=== PATIENT | male | born 1970 | race Two or more races ===

== ENCOUNTER 2022-12-18 01:08 | Emergency (ER) | payer OTHER, SELFPAY ==
[2022-12-18 01:20] VITALS: BP 128/78; PULSE 80; RESP 16; TEMP 37.5; O2SAT 95; BMI 38.9
--- NOTE | 2022-12-18 01:52 | ED_ITS ---
HPI - General Adult General Chief complaint: General Medical Stated complaint: Difficulty swallowing Time Seen by Provider: 12/18/22 01:52 Source: patient Mode of arrival: ambulatory Limitations: no limitations History of Present Illness HPI narrative: Patient with multiple complaints back pain for more than 2 months few weeks of dysuria and frequency now complaining of sore throat for last few days also feels very anxious no fever no chills Related Data Previous Rx's Medication Instructions Recorded ibuprofen 600 mg tablet 600 mg PO Q6H PRN fever or pain 12/18/22 #30 tabs lorazepam 1 mg tablet (Ativan) 1 mg PO BEDTIME PRN anxiety #7 tabs 12/18/22 Allergies Allergy/AdvReac Type Severity Reaction Status Date / Time No Known Allergies Allergy Verified 12/18/22 01:53 Review of Systems Review of Systems: Yes all other systems are reviewed and are negative [facility] Social History Social History Alcohol intake: never Smoked in Last 30 Days: No Use of substances other than those prescribed or required for medical reasons: No Advance Directives: No Advance Directives Information Provided: Yes Physical Exam ED Vital Signs: Vital Signs - 24 hr 12/18/22 01:20 12/18/22 04:05 Temperature 99.5 F 98.3 F Pulse Rate 80 73 Respiratory Rate 16 17 Blood Pressure 128/78 107/64 Pulse Oximetry 95 95 Oxygen Delivery Method Room Air Room Air BMI result Body Mass Index 38.9 Appearance: Alert. Oriented X3. No acute distress. Anxious Eyes: PERRLA, No Nystagmus ENT: Pharynx normal. Oral Mucosa moist Neck: Normal inspection. Neck supple. CVS: Normal heart rate and rhythm. Pulses normal. Respiratory: No respiratory distress. Equal air entry bilateral, no wheezing/rales/rhonchi Abdomen: Soft and nontender. Bowel sounds are present, no mass palpable, no CVA tenderness Skin: Skin warm and dry. Normal skin color. Normal skin turgor. Extremities: No lower extremity edema. No calf tenderness Neuro: Oriented X 3. No motor deficit. Medications Administered Discontinued Medications Generic Name Dose Route Start Last Admin Trade Name Freq PRN Reason Stop Dose Admin Lorazepam 1 mg 12/18/22 02:00 12/18/22 02:12 Lorazepam 1 Mg Tablet PO 12/18/22 02:01 1 mg ONCE ONE Administration Medical Decision Making Medical Decision Making [facility] Narrative: Patient with multiple complaints main complaints anxiety urine negative COVID/flu/RSV negative will discharge patient home on Ativan and ibuprofen for chronic pain Lab Data [facility] Lab Attestation statement: I reviewed the patient's lab results. Labs: Lab Results 12/18/22 12/18/22 Range/Units 01:26 02:08 Urine Color Yellow Urine Appearance Clear Urine pH 5.5 (5.0-9.0) Ur Specific [place] 1.020 (1.005-1.025) Urine Protein Negative (Neg-Trace) mg/dL Urine Glucose (UA) Negative (Negative) mg/dL Urine Ketones Negative (Negative) mg/dL Urine Blood Negative (Negative) Urine Nitrite Negative (Negative) Ur Leukocyte Esterase Negative (Negative) Influenza Type A (PCR) NEGATIVE (Negative) Influenza Type B (PCR) NEGATIVE (Negative) RSV RNA Qual (PCR) NEGATIVE (Negative) SARS-CoV-2 RNA (RT-PCR) NEGATIVE (Negative) Discharge Plan Discharge Clinical Impression: Anxiety Patient Disposition: Home, Self-Care Instructions: Generalized Anxiety Disorder (ED) Additional Instructions: Rest at home Tylenol/Motrin for pain Ativan for anxiety Prescriptions: New ibuprofen 600 mg tablet 600 mg PO Q6H PRN (Reason: fever or pain) Qty: 30 0RF lorazepam [Ativan] 1 mg tablet 1 mg PO BEDTIME PRN (Reason: anxiety) Qty: 7 0RF
[2022-12-18] MEDS: LORazepam 1 MG TABLET PO (02:12)
[2022-12-18 02:14] LABS: Appearance Urine Clear; Color Urine Yellow; Glucose Urine UA Negative (Negative); Leukocyte Esterase Urine Negative (Negative); Nitrite Urine Negative (Negative); PH 5.5 (5.0-9.0); Urine Blood Negative (Negative); Urine Ketones Negative (Negative); Urine Protein Negative (Neg-Trace)
--- NOTE | 2022-12-18 02:22 | PC.NURSE ---
Pt a&oX4, states L sided neck pain feeling like if there was phlegm stuck, but as I was checking in, its resolved now . Reports 810 R sided flank pain with burning, frequency and pain. Urine sample collected and sent to lab.
[2022-12-18 02:24] LABS: Influenza A PCR NEGATIVE (Negative); Influenza B PCR NEGATIVE (Negative); Resp Syncy Virus RNA Qual PCR NEGATIVE (Negative); SARS COV2 PCR INHOUSE NEGATIVE (Negative)
[2022-12-18 04:05] VITALS: BP 107/64; PULSE 73; RESP 17; TEMP 36.8; O2SAT 95
== END 2022-12-18 04:42 | disposition home or self-care (01) ==
PROVIDERS: Emergency Provider Internal Medicine; PCP Internal Medicine
DX: R13.10 Dysphagia, unspecified (principal); M54.50 Low back pain, unspecified; F41.1 Generalized anxiety disorder; F43.0 Acute stress reaction; Z20.822 Contact with and (suspected) exposure to COVID-19; Z20.828 Contact with and (suspected) exposure to other viral communicable diseases; Z79.899 Other long term (current) drug therapy
CPT/HCPCS: 0241U; 81003; 99283; 99284

== ENCOUNTER 2023-01-23 18:48 | Emergency (ER) | payer OTHER, SELFPAY ==
[2023-01-23 19:04] VITALS: BP 125/83; PULSE 85; RESP 18; TEMP 36.7; O2SAT 96; BMI 35.4
--- NOTE | 2023-01-23 19:06 | ED_ITS ---
HPI - URI/Sore Throat General Chief Complaint: Upper Respiratory Symptoms <CHIP Angela - Last Filed: 01/23/23 19:10> Stated Complaint: dry throat/ feels closed <CHIP Angela - Last Filed: 01/23/23 19:10> Time Seen by Provider: 01/23/23 21:38 <CHIP Angela - Last Filed: 01/23/23 19:10> Source: patient <Osiel Marroquin MD - Last Filed: 01/23/23 22:22> Mode of arrival: ambulatory <Osiel Marroquin MD - Last Filed: 01/23/23 22:22> Limitations: no limitations <Osiel Marroquin MD - Last Filed: 01/23/23 22:22> History of Present Illness HPI Narrative: Patient 52 years or [place]-speaking male complaining of sore throat for last 3 days got worse yesterday feel itchy and tighten the back of the throat no sick contacts or travel no difficulty in swallowing on breathing. No change in voice no rhinorrhea no sinus tenderness no cough or sputum production no other family member sick <Osiel Marroquin MD - Last Filed: 01/23/23 22:22> Related Data Home Medications: Previous Rx's Medication Instructions Recorded ibuprofen 600 mg tablet 600 mg PO Q6H PRN fever or pain 12/18/22 #30 tabs lorazepam 1 mg tablet (Ativan) 1 mg PO BEDTIME PRN anxiety #7 tabs 12/18/22 cefuroxime axetil 500 mg tablet 500 mg PO BID #14 tabs 01/23/23 <CHIP Angela - Last Filed: 01/23/23 19:10> Allergies/Adverse Reactions: Allergies Allergy/AdvReac Type Severity Reaction Status Date / Time No Known Allergies Allergy Verified 12/18/22 01:53 <CHIP Angela - Last Filed: 01/23/23 19:10> Review of Systems Review of Systems: Yes all other systems are reviewed and are negative <Osiel Marroquin MD - Last Filed: 01/23/23 22:22> PMFSH Social History Social History: Social History Alcohol intake: never Advance Directives: No Advance Directives Information Provided: No <CHIP Angela - Last Filed: 01/23/23 19:10> Physical Exam Vital Signs: Vital Signs: Last Vital Signs Temp 98.0 F 01/23/23 19:04 Pulse 85 01/23/23 19:04 Resp 18 01/23/23 19:04 BP 125/83 01/23/23 19:04 Pulse Ox 96 01/23/23 19:04 O2 Del Method Room Air 01/23/23 19:04 BMI result Body Mass Index 35.4 <CHIP Angela - Last Filed: 01/23/23 19:10> Vital Signs: Last Vital Signs Temp 98.0 F 01/23/23 19:04 Pulse 85 01/23/23 19:04 Resp 18 01/23/23 19:04 BP 125/83 01/23/23 19:04 Pulse Ox 96 01/23/23 19:04 O2 Del Method Room Air 01/23/23 19:04 BMI result Body Mass Index 35.4 <Osiel Marroquin MD - Last Filed: 01/23/23 22:22> Appearance: Alert. Oriented X3. No acute distress. ENT: Pharynx normal. Oral Mucosa moist Neck: Normal inspection. Neck supple. Bilateral upper cervical lymphadenopathy CVS: Normal heart rate and rhythm. Pulses normal. Respiratory: No respiratory distress. Equal air entry bilateral, no wheezing/rales/rhonchi Skin: Skin warm and dry. Normal skin color. Normal skin turgor. Extremities: No lower extremity edema. Neuro: Oriented X 3. <Osiel Marroquin MD - Last Filed: 01/23/23 22:22> Course Course Course Narrative: RME-19:10pm - 52-year-old male who is [place]-speaking presenting to the ER with complaints of throat discomfort feels very dry feels like it is closing since yesterday worse today. Also reports it feels itchy. Denies recent travel or sick contacts, trouble swallowing or breathing, rashes, change in voice, drooling, nasal congestion/rhinorrhea, cough or sputum production or any other symptoms complaints or concerns at this time Plan: COVID/RSV/flu and rapid strep ordered at this time patient to be seen in [facility]. <CHIP Angela - Last Filed: 01/23/23 19:10> Medications Administered Discontinued Medications Generic Name Dose Route Start Last Admin Trade Name Freq PRN Reason Stop Dose Admin Cefuroxime Axetil 500 mg 01/23/23 21:50 01/23/23 22:16 Cefuroxime Axetil 500 Mg Tablet PO 01/23/23 21:51 500 mg ONCE ONE Administration <CHIP Angela - Last Filed: 01/23/23 19:10> Medications Administered Discontinued Medications Generic Name Dose Route Start Last Admin Trade Name Freq PRN Reason Stop Dose Admin Cefuroxime Axetil 500 mg 01/23/23 21:50 01/23/23 22:16 Cefuroxime Axetil 500 Mg Tablet PO 01/23/23 21:51 500 mg ONCE ONE Administration <Osiel Marroquin MD - Last Filed: 01/23/23 22:22> Medical Decision Making Medical Decision Making MDM Narrative: Patient with acute pharyngitis strep is negative discharge patient home on Ceftin <Osiel Marroquin MD - Last Filed: 01/23/23 22:22> Lab Data [facility] Lab Attestation statement: I reviewed the patient's lab results. <Osiel Marroquin MD - Last Filed: 01/23/23 22:22> Labs: Lab Results 01/23/23 01/23/23 Range/Units 20:44 20:44 Influenza Type A (PCR) NEGATIVE (Negative) Influenza Type B (PCR) NEGATIVE (Negative) RSV RNA Qual (PCR) NEGATIVE (Negative) SARS-CoV-2 RNA (RT-PCR) NEGATIVE (Negative) S. pyogenes GrpA BJ Negative (Negative) <CHIP Angela - Last Filed: 01/23/23 19:10> Lab Results 01/23/23 01/23/23 Range/Units 20:44 20:44 Influenza Type A (PCR) NEGATIVE (Negative) Influenza Type B (PCR) NEGATIVE (Negative) RSV RNA Qual (PCR) NEGATIVE (Negative) SARS-CoV-2 RNA (RT-PCR) NEGATIVE (Negative) S. pyogenes GrpA BJ Negative (Negative) <Osiel Marroquin MD - Last Filed: 01/23/23 22:22> Discharge Plan Discharge Clinical Impression: Pharyngitis <CHIP Angela - Last Filed: 01/23/23 19:10> Patient Disposition: Home, Self-Care <CHIP Angela - Last Filed: 01/23/23 19:10> Instructions: Pharyngitis (ED) <CHIP Angela - Last Filed: 01/23/23 19:10> Additional Instructions: Drink plenty of fluids Take antibiotic as prescribed Follow the PCP if any concerns Your strep test is negative <CHIP Angela - Last Filed: 01/23/23 19:10> Prescriptions: New cefuroxime axetil 500 mg tablet 500 mg PO BID Qty: 14 0RF No Action ibuprofen 600 mg tablet 600 mg PO Q6H PRN (Reason: fever or pain) Qty: 30 0RF lorazepam [Ativan] 1 mg tablet 1 mg PO BEDTIME PRN (Reason: anxiety) Qty: 7 0RF <CHIP Angela - Last Filed: 01/23/23 19:10> Interventions: ED Discharge Assessment Last Done: 01/23/23 22:19 <CHIP Angela - Last Filed: 01/23/23 19:10> Discharge Date/Time: 01/23/23 22:19 <CHIP Angela - Last Filed: 01/23/23 19:10> Print Language: Argentine <CHIP Angela - Last Filed: 01/23/23 19:10>
[2023-01-23 20:58] LABS: IDNOW Serial# 08D9AD1C; Strep A Nucleic Acid Negative (Negative)
[2023-01-23 21:32] LABS: Influenza A PCR NEGATIVE (Negative); Influenza B PCR NEGATIVE (Negative); Resp Syncy Virus RNA Qual PCR NEGATIVE (Negative); SARS COV2 PCR INHOUSE NEGATIVE (Negative)
== END 2023-01-23 22:19 | disposition home or self-care (01) ==
PROVIDERS: Physician Assistant Medical; Emergency Provider Internal Medicine
DX: J02.9 Acute pharyngitis, unspecified (principal); Z20.822 Contact with and (suspected) exposure to COVID-19; Z20.828 Contact with and (suspected) exposure to other viral communicable diseases; Z79.899 Other long term (current) drug therapy
CPT/HCPCS: 0241U; 87651; 99282; 99283

== ENCOUNTER 2023-01-24 01:30 | Emergency (ER) | payer OTHER, SELFPAY ==
[2023-01-24 02:44] VITALS: BP 103/66; PULSE 79; RESP 20; TEMP 36.6; O2SAT 96; BMI 35.4
--- NOTE | 2023-01-24 03:40 | ED.GENADULT ---
HPI - General Adult General Chief complaint: General Medical Stated complaint: Sore throat Time Seen by Provider: 01/24/23 03:21 Source: patient Mode of arrival: ambulatory Limitations: no limitations History of Present Illness HPI narrative: Patient with history of recurrent nasal congestion was seen here yesterday for sore throat comes back as still feeling same this going on for several weeks getting worse in last 3 days patient does have postnasal drip no fever no chills no cough or shortness of breath Related Data Previous Rx's Medication Instructions Recorded ibuprofen 600 mg tablet 600 mg PO Q6H PRN fever or pain 12/18/22 #30 tabs lorazepam 1 mg tablet (Ativan) 1 mg PO BEDTIME PRN anxiety #7 tabs 12/18/22 cefuroxime axetil 500 mg tablet 500 mg PO BID #14 tabs 01/23/23 codeine 10 mg-guaifenesin 100 mg/5 10 ml PO Q6H PRN cough #237 mL 01/24/23 mL oral liquid prednisone 20 mg tablet 40 mg PO DAILY #10 tabs 01/24/23 Allergies Allergy/AdvReac Type Severity Reaction Status Date / Time No Known Allergies Allergy Verified 12/18/22 01:53 Review of Systems Review of Systems: Yes all other systems are reviewed and are negative [facility] Social History Social History Alcohol intake: never Advance Directives: No Advance Directives Information Provided: No Physical Exam ED Vital Signs: Vital Signs - 24 hr 01/24/23 02:44 Temperature 97.8 F Pulse Rate 79 Respiratory Rate 20 Blood Pressure 103/66 Pulse Oximetry 96 Oxygen Delivery Method Room Air BMI result Body Mass Index 35.4 Appearance: Alert. Oriented X3. No acute distress. ENT: Pharynx slightly erythematous Oral Mucosa moist postnasal drip+ inflamed turbinates with clear discharge Neck: Normal inspection. Neck supple. CVS: Normal heart rate and rhythm. Pulses normal. Respiratory: No respiratory distress. Equal air entry bilateral, no wheezing/rales/rhonchi Skin: Skin warm and dry. Normal skin color. Normal skin turgor. Extremities: No lower extremity edema. Neuro: Oriented X 3. Medications Administered Discontinued Medications Generic Name Dose Route Start Last Admin Trade Name Freq PRN Reason Stop Dose Admin Dexamethasone 10 mg 01/24/23 03:50 01/24/23 04:49 Dexamethasone 2 Mg Tablet PO 01/24/23 03:51 10 mg ONCE ONE Administration Guaifenesin/Codeine Phosphate 10 ml 01/24/23 03:50 01/24/23 04:49 Guaifen/Codeine Sf 200/20/10ml 10 Ml Liquid PO 01/24/23 03:51 10 ml ONCE ONE Administration Medical Decision Making Medical Decision Making MDM Narrative: Patient advised to continue Ceftin will add prednisone and Tessalon Discharge Plan Discharge Clinical Impression: Acute pharyngitis Patient Disposition: Home, Self-Care Instructions: Pharyngitis (ED) Additional Instructions: Continue antibiotic Prednisone as advised Cough drops as prescribed Prescriptions: New codeine-guaifenesin 10-100 mg/5 mL liquid 10 ml PO Q6H PRN (Reason: cough) Qty: 237 0RF prednisone 20 mg tablet 40 mg PO DAILY Qty: 10 0RF No Action ibuprofen 600 mg tablet 600 mg PO Q6H PRN (Reason: fever or pain) Qty: 30 0RF lorazepam [Ativan] 1 mg tablet 1 mg PO BEDTIME PRN (Reason: anxiety) Qty: 7 0RF cefuroxime axetil 500 mg tablet 500 mg PO BID Qty: 14 0RF Stand Alone Forms: Work/School Release Interventions: ED Discharge Assessment Last Done: 01/24/23 05:03 Discharge Date/Time: 01/24/23 05:04 Print Language: Macedonian
[2023-01-24] MEDS: dexAMETHasone 2 MG TABLET 10 MG PO (04:49)
[2023-01-24] MEDS: guaiFEN/Codeine SF 200/20/10ML 10 ML LIQUID PO (04:49)
== END 2023-01-24 05:04 | disposition home or self-care (01) ==
PROVIDERS: Emergency Provider Internal Medicine
DX: J02.9 Acute pharyngitis, unspecified (principal)
CPT/HCPCS: 99282; 99283; J8540

== ENCOUNTER 2023-02-26 13:49 | Outpatient (REF) | payer OTHER, SELFPAY ==
--- NOTE | ~2023-02-26 | XR_ITS ---
EXAMINATION: XR ABDOMEN KUB CLINICAL INDICATION: Calculus of kidney. Right-sided pain COMPARISON: None available. TECHNIQUE: AP view of the abdomen. FINDINGS: There is scattered stool and gas seen throughout the colon without significant distention. The small bowel loops are normal caliber. Significant surgical samantha in right upper quadrant likely from previous cholecystectomy. There are phleboliths in the pelvis. The kidneys are suboptimally visualized unenhanced radiopaque calculi cannot be excluded. No gross bony abnormality. XR/XR KUB IMPRESSION: 1. Mild constipation. No acute process seen. 2. Suboptimal visualization of kidneys. Radiopaque calculi are not visualized but cannot be excluded..
[2023-02-26 14:10] LABS: MANUAL DIFF FLAG NO
[2023-02-26 15:00] LABS: Basophils Absolute Auto 0.1 X10*3/uL (0.0-0.2); Eosinophils Absolute Auto 0.2 X10*3/uL (0.0-0.4); Eosinophils Percent Auto 3.1 % (0-4); Hematocrit 48.2 % (42.0-52.0); Hemoglobin 15.8 g/dl (14.0-18.0); Imm Gran Abs Auto 0.01 X10*3/uL (0.00-0.03); Imm Gran Pct Auto 0.2 % (0.0-0.4); Lymphocytes Absolute Auto 1.9 X10*3/uL (1.2-4.9); Lymphocytes Percent Auto 36.4 % (20-40); Mean Corpuscular HGB Conc 32.8 g/dl (31.0-36.0); Mean Corpuscular Volume 94.7 fL (80.0-98.0); Mean Platelet Volume 10.3 fL (9.4-12.4); Monocytes Absolute Auto 0.5 X10*3/uL (0.1-1.2); Monocytes Percent Auto 9.5 % (2-11); Neutrophils Absolute Auto 2.6 x10*3/uL (2.0-8.3); Neutrophils Percent Auto 49.8 % (45-73); Platelet Count 212 X10*3/uL (160-400); Red Blood Count 5.09 X10*6/uL (4.60-5.80); Red Cell Distribution Width 11.3 % (11.0-16.0); White Blood Count 5.2 X10*3/uL (4.8-10.8)
[2023-02-26 15:08] LABS: Appearance Urine Clear; Color Urine Yellow; Glucose Urine UA Negative (Negative); Leukocyte Esterase Urine Negative (Negative); Nitrite Urine Negative (Negative); PH 5.5 (5.0-9.0); Urine Blood Negative (Negative); Urine Ketones Negative (Negative); Urine Protein Negative (Neg-Trace)
[2023-02-26 15:43] LABS: Alanine Aminotransferase 105 U/L (0-40); Albumin Level 4.1 g/dL (3.5-5.0); Alkaline Phosphatase 81 U/L (39-117); Anion Gap 11 (12-20); Aspartate Amino Transferase 51 U/L (5-37); Bilirubin Total 0.7 mg/dL (0.0-1.0); Blood Urea Nitrogen 20 mg/dL (9-16); Calcium 9.8 mg/dL (8.4-10.2); Carbon Dioxide 30 mmol/L (22-29); Chloride 106 mmol/L (96-108); Estimated Glomerular Filt Rate > 60; Glucose Random 107 mg/dL (60-115); Potassium 4.3 mmol/L (3.3-5.1); Sodium 143 mmol/L (135-145); Total Protein 7.4 g/dL (6.5-8.0)
== END 2023-02-26 13:50 | disposition home or self-care (01) ==
LOC: HO.XRAY 13:49
PROVIDERS: PCP Internal Medicine; Visit Provider Internal Medicine
DX: N20.0 Calculus of kidney (principal)
CPT/HCPCS: 36415; 74018; 80053; 81003; 85025

== ENCOUNTER 2023-03-11 02:53 | Emergency (ER) | payer OTHER, SELFPAY ==
--- NOTE | 2023-03-11 | ECG_ITS ---
Test Reason : dizziness Blood Pressure : / mmHG Vent. Rate : 071 BPM Atrial Rate : 071 BPM P-R Int : 158 ms QRS Dur : 088 ms QT Int : 414 ms P-R-T Axes : 045 076 052 degrees QTc Int : 449 ms Normal sinus rhythm Normal ECG No previous ECGs available Referred By: Generic ED Physician Electronically Signed By:FABIOLA HERNADEZ
--- NOTE | ~2023-03-11 | CT_ITS ---
EXAMINATION: CT ABDOMEN AND PELVIS WITHOUT CONTRAST CLINICAL INFORMATION: Abdominal pain COMPARISON: None available. TECHNIQUE: Multidetector volumetric imaging was performed from the superior aspect of the liver through the pubic symphysis. Sagittal and coronal reformatted images were obtained on the technologist's workstation. This CT examination was performed using dose optimization techniques as appropriate, variously including the following: *Automated exposure control *Adjustment of mA and/or kV according to patient size (this includes techniques or standardized protocols for targeted exams where dose is matched to indication/reason for exam; i.e. extremities or head) *Use of iterative reconstruction technique DLP: 818 mGy-cm FINDINGS: LUNG BASES: The visualized lung bases are unremarkable. LIVER, GALLBLADDER, AND BILIARY TREE: The liver is normal in size, shape, and attenuation. No focal hepatic lesion or biliary ductal dilatation is identified on this noncontrast exam. Patient is status post cholecystectomy. PANCREAS: Unremarkable. SPLEEN: Unremarkable. ADRENAL GLANDS: Unremarkable. KIDNEYS AND URETERS: Right kidney appears malrotated. No hydronephrosis or obstructing calculus bilaterally. BLADDER: Mildly distended and grossly unremarkable. GASTROINTESTINAL TRACT: Assessment for wall thickening in some segments of the colon is limited due to luminal collapse, though no significant pericolonic stranding is seen to strongly suggest a colitis. No evidence of bowel obstruction. No free fluid or free air is seen. ABDOMINAL WALL: Bilateral fat-containing inguinal hernias. LYMPH NODES: Normal. VASCULAR: Unremarkable. PELVIC VISCERA: Prostate gland appears mildly prominent. OSSEOUS STRUCTURES: Scattered endplate osteophytes are present in the spine. CT/CT abdomen pelvis wo IV con IMPRESSION: No acute findings identified in the abdomen/pelvis.
[2023-03-11 03:10] VITALS: BP 121/72; PULSE 72; RESP 22; TEMP 36.5; O2SAT 95; BMI 36.4
[2023-03-11 03:26] LABS: MANUAL DIFF FLAG NO
[2023-03-11 03:27] LABS: Basophils Percent Auto 0.7 % (0-2); Eosinophils Absolute Auto 0.1 X10*3/uL (0.0-0.4); Eosinophils Percent Auto 2.8 % (0-4); Hematocrit 42.1 % (42.0-52.0); Hemoglobin 14.3 g/dl (14.0-18.0); Imm Gran Abs Auto 0.01 X10*3/uL (0.00-0.03); Imm Gran Pct Auto 0.2 % (0.0-0.4); Lymphocytes Absolute Auto 1.5 X10*3/uL (1.2-4.9); Mean Corpuscular Volume 91.3 fL (80.0-98.0); Mean Platelet Volume 9.7 fL (9.4-12.4); Monocytes Absolute Auto 0.4 X10*3/uL (0.1-1.2); Monocytes Percent Auto 8.6 % (2-11); Neutrophils Absolute Auto 2.3 x10*3/uL (2.0-8.3); Neutrophils Percent Auto 53.7 % (45-73); Platelet Count 154 X10*3/uL (160-400); Red Blood Count 4.61 X10*6/uL (4.60-5.80); Red Cell Distribution Width 11.4 % (11.0-16.0); White Blood Count 4.3 X10*3/uL (4.8-10.8)
--- NOTE | 2023-03-11 03:40 | PC.NURSE ---
Pt A&Ox4, denies any pain, reports sudden onset of dizziness at 0200 after waking up with slight headache, N/D. Reports rodrigues are moving, not spinning. Pt denies CP, SOB or palpitation. Pt moving all extremities equally. VSS. Pt placed on bedside monitor, EKG obtained, lab work drawn and sent to lab.
[2023-03-11 03:48] LABS: Alanine Aminotransferase 81 U/L (0-40); Albumin Level 3.7 g/dL (3.5-5.0); Alkaline Phosphatase 75 U/L (39-117); Anion Gap 12 (12-20); Aspartate Amino Transferase 33 U/L (5-37); Bilirubin Direct 0.2 mg/dL (0.0-0.5); Bilirubin Total 0.7 mg/dL (0.0-1.0); Blood Urea Nitrogen 16 mg/dL (9-16); Calcium 8.7 mg/dL (8.4-10.2); Carbon Dioxide 24 mmol/L (22-29); Chloride 109 mmol/L (96-108); Creatinine Clr Calc Pharmacy 114.5; Estimated Glomerular Filt Rate > 60; Glucose Random 156 mg/dL (60-115); Lipase 13 U/L (8-78); Potassium 3.5 mmol/L (3.3-5.1); Sodium 141 mmol/L (135-145); Total Protein 6.6 g/dL (6.5-8.0)
[2023-03-11] MEDS: 0.9 % Sodium Chloride 1,000 ML 999 ML IV ×2 (04:08→04:18)
--- NOTE | 2023-03-11 04:09 | ED.DIZZY ---
HPI - Dizziness General Chief Complaint: Dizziness Stated Complaint: Dizzy, Nausea, Vomiting Time Seen by Provider: 03/11/23 03:09 History of Present Illness HPI Narrative: Patient is a 52-year-old male presents today with having right upper quadrant right flank pain along with nausea vomiting diarrhea generalized malaise tingling sensation to both arms and legs. Very weak tired. There is no recent camping. There is no recent antibiotics. No travel. Patient denies any chest pain. No diaphoresis. Feel very weak and tired. Diarrhea is whitish clearish in color. Vomiting mostly consistent with food. Patient from home. No significant past medical history. No history diabetes, hypertension, high cholesterol, smoking, mi. MD elicited complaint: dizziness Related Data Previous Rx's Medication Instructions Recorded ibuprofen 600 mg tablet 600 mg PO Q6H PRN fever or pain 12/18/22 #30 tabs codeine 10 mg-guaifenesin 100 mg/5 10 ml PO Q6H PRN cough #237 mL 01/24/23 mL oral liquid lorazepam 1 mg tablet (Ativan) 1 mg PO BEDTIME PRN anxiety #15 02/16/23 tabs sertraline 50 mg tablet 50 mg PO QAM 30 days #30 tabs 02/16/23 tramadol 50 mg tablet 50 mg PO BID PRN severe pain 7 02/16/23 days #14 tabs ondansetron 4 mg disintegrating 4 mg PO TID PRN nausea and 03/11/23 tablet vomiting 5 days #10 tabs Allergies Allergy/AdvReac Type Severity Reaction Status Date / Time No Known Allergies Allergy Verified 02/16/23 16:38 Review of Systems Review of Systems: Positive generalized malaise. Positive nausea vomiting diarrhea Yes all other systems are reviewed and are negative [facility] Past Medical History Attestation statement: The following information was validated with the patient. Medical History Anxiety Obesity (BMI 30-39.9) Renal calculi Surgical History Hx laparoscopic cholecystectomy (~2007) Hx of appendectomy (~1994) Social History Social History Alcohol intake: never Patient Tobacco Use Status: Never used Tobacco Smoked in Last 30 Days: No e-Cigarette/Vaping Use: Never Used Use of substances other than those prescribed or required for medical reasons: No Advance Directives: No Advance Directives Information Provided: Yes Physical Exam Vital Signs: Vital Signs: Last Vital Signs Temp 97.7 F 03/11/23 03:10 Pulse 76 03/11/23 04:37 Resp 12 03/11/23 04:35 BP 113/67 03/11/23 04:37 Pulse Ox 98 03/11/23 04:35 O2 Del Method Room Air 03/11/23 04:35 BMI result Body Mass Index 36.4 Appearance: Alert. Oriented X3. No acute distress. Eyes: Pupils equal, round and reactive to light. ENT: Pharynx normal. Neck: Normal inspection. Neck supple. No lymph nodes noted. No crepitus CVS: Normal heart rate and rhythm. Pulses normal. Normal S1 and S2 Respiratory: No respiratory distress. Breath sounds normal. No Wheezing. No rales Abdomen: Soft and nontender. No rigidity. No distention. good BS x4 Skin: Skin warm and dry. Normal skin color. Normal skin turgor. Extremities: No lower extremity edema. Neurovascular intact to all extremities. No Lacerations. No Rash Neuro: Oriented X 3. No motor deficit. No sensory deficit. Moving all extermities. No slurred speech Medications Administered Discontinued Medications Generic Name Dose Route Start Last Admin Trade Name Freq PRN Reason Stop Dose Admin Sodium Chloride 1,000 mls @ 999 mls/hr 03/11/23 04:15 03/11/23 06:23 Ns IV 03/11/23 05:15 Infused .Q1H1M MARTHA Infusion Sodium Chloride 1,000 mls @ 999 mls/hr 03/11/23 04:15 03/11/23 04:18 Ns IV 03/11/23 05:15 999 mls/hr .Q1H1M MARTHA Administration Ondansetron HCl 4 mg 03/11/23 05:39 03/11/23 05:42 Ondansetron Hcl 4 Mg/2 Ml Vial IVPUSH 03/11/23 05:40 4 mg ONCE ONE Administration Medical Decision Making Medical Decision Making MDM Narrative: Patient initially complaining of dizziness generalized malaise. Nausea vomiting diarrhea. My interpretation of patient's EKG showed a sinus pattern heart rate was 80 [place] QRS QT within normal limits is no acute ST segment elevation. Patient's electrolytes are normal. LFTs are normal. Lipase is 13. There is no evidence for biliary disease. No evidence for pancreatitis. Patient's white count is 4.3. Patient's glucose is at 156. Explained to patient the need for close follow-up. CT scan of the abdomen pelvis done. There is no acute evidence of obstruction no abscess no perforation. After IV fluids patient symptomatically feels much relieved. Will discharge patient home as he is now tolerating fluids. In stable condition. Patient's urine showed no signs of infection Differential Diagnosis Differential Diagnoses: The differential diagnosis associated with the presentation includes Gastroenteritis, food poisoning, obstruction, diverticulitis, kidney stone, coronary issues Admission/Observation Consideration of admission/observation: Escalation of care including admission/observation considered Workup negative symptoms resolved no need for admission Lab Data MDM Lab Attestation statement: I reviewed the patient's lab results. 03/11/23 03:20 03/11/23 03:20 Labs: Lab Results 03/11/23 03/11/23 03/11/23 Range/Units 03:20 03:20 05:23 WBC 4.3 L (4.8-10.8) X10*3/uL RBC 4.61 (4.60-5.80) X10*6/uL Hgb 14.3 (14.0-18.0) g/dl Hct 42.1 (42.0-52.0) % MCV 91.3 (80.0-98.0) fL MCH 31.0 (27.0-33.0) pg MCHC 34.0 (31.0-36.0) g/dl RDW 11.4 (11.0-16.0) % Plt Count 154 L D (160-400) X10*3/uL MPV 9.7 (9.4-12.4) fL Immature Gran % (Auto) 0.2 (0.0-0.4) % Neut % (Auto) 53.7 (45-73) % Lymph % (Auto) 34.0 (20-40) % [place] % (Auto) 8.6 (2-11) % Eos % (Auto) 2.8 (0-4) % Baso % (Auto) 0.7 (0-2) % Lymph # (Auto) 1.5 (1.2-4.9) X10*3/uL [place] # (Auto) 0.4 (0.1-1.2) X10*3/uL Eos # (Auto) 0.1 (0.0-0.4) X10*3/uL Baso # (Auto) 0.0 (0.0-0.2) X10*3/uL Abs Immat Gran (auto) 0.01 (0.00-0.03) X10*3/uL Absolute Neuts (auto) 2.3 (2.0-8.3) x10*3/uL Absolute Nucleated RBC 0.000 (0.0-0.012) X10*3/uL Nucleated RBC % (auto) 0.0 (0.0-0.2) /100WBC Sodium 141 (135-145) mmol/L Potassium 3.5 (3.3-5.1) mmol/L Chloride 109 H (96-108) mmol/L Carbon Dioxide 24 (22-29) mmol/L Anion Gap 12 (12-20) BUN 16 (9-16) mg/dL Creatinine 0.94 (0.5-1.4) mg/dL Estim Creat Clear Calc 114.5 Estimated GFR > 60 Random Glucose 156 H (60-115) mg/dL Calcium 8.7 D (8.4-10.2) mg/dL Total Bilirubin 0.7 (0.0-1.0) mg/dL Direct Bilirubin 0.2 (0.0-0.5) mg/dL AST 33 (5-37) U/L ALT 81 H (0-40) U/L Alkaline Phosphatase 75 (39-117) U/L Total Protein 6.6 (6.5-8.0) g/dL Albumin 3.7 (3.5-5.0) g/dL Lipase 13 (8-78) U/L Urine Color Yellow Urine Appearance Clear Urine pH 7.0 (5.0-9.0) Ur Specific [place] 1.025 (1.005-1.025) Urine Protein Negative (Neg-Trace) mg/dL Urine Glucose (UA) Negative (Negative) mg/dL Urine Ketones Negative (Negative) mg/dL Urine Blood Negative (Negative) Urine Nitrite Negative (Negative) Ur Leukocyte Esterase Negative (Negative) Independent Interpretation I performed an independent interpretation of an: EKG Interpretation: Sinus heart rate 75 [place] QRS QT within normal limits is no acute ST segment elevations Radiology Impression Discussion of test interpretation with radiology: I have reviewed the radiologist's reading. Chronic Conditions Patient?s care impacted by: Hypertension Discharge Plan Discharge Clinical Impression: Gastroenteritis Patient Disposition: Home, Self-Care Instructions: Gastroenteritis (DC) Prescriptions: New ondansetron 4 mg tablet,disintegrating 4 mg PO TID PRN (Reason: nausea and vomiting) 5 Days Qty: 10 0RF No Action ibuprofen 600 mg tablet 600 mg PO Q6H PRN (Reason: fever or pain) Qty: 30 0RF codeine-guaifenesin 10-100 mg/5 mL liquid 10 ml PO Q6H PRN (Reason: cough) Qty: 237 0RF lorazepam [Ativan] 1 mg tablet 1 mg PO BEDTIME PRN (Reason: anxiety) Qty: 15 0RF sertraline 50 mg tablet 50 mg PO QAM 30 Days Qty: 30 3RF tramadol 50 mg tablet 50 mg PO BID PRN (Reason: severe pain) 7 Days Qty: 14 0RF Rx Instructions: Take only as needed for severe pain - due to kidney stones Referrals: Codey Raygoza MD [Primary Care Provider] - Print Language: [place] Citizen
[2023-03-11 04:35] VITALS: BP 107/54; PULSE 84; RESP 12; O2SAT 98
[2023-03-11 04:37] VITALS: BP 107/63; BP 113/67; PULSE 76; PULSE 80; PULSE 84
[2023-03-11 05:31] LABS: Appearance Urine Clear; Color Urine Yellow; Glucose Urine UA Negative (Negative); Leukocyte Esterase Urine Negative (Negative); Nitrite Urine Negative (Negative); Specific Gravity - Urine 1.025 (1.005-1.025); Urine Blood Negative (Negative); Urine Ketones Negative (Negative); Urine Protein Negative (Neg-Trace)
--- NOTE | 2023-03-11 05:38 | PC.NURSE ---
Pt reports nausea, Dr. Zeng notified, new verbal order given.
[2023-03-11] MEDS: ondansetron HCL 4 MG/2 ML VIAL IVPUSH (05:42)
--- NOTE | 2023-03-11 06:20 | PC.NURSE ---
Pt tolerated PO fluids and crackers given, provider notified.
== END 2023-03-11 06:51 | disposition home or self-care (01) ==
PROVIDERS: Emergency Provider Emergency Medicine Emergency Medical Services; PCP Internal Medicine
DX: K52.9 Noninfective gastroenteritis and colitis, unspecified (principal); R42 Dizziness and giddiness; R10.9 Unspecified abdominal pain; R11.2 Nausea with vomiting, unspecified; Z79.899 Other long term (current) drug therapy
CPT/HCPCS: 36415; 74176; 80048; 80076; 81003; 83690; 85025; 93005; 99284; 99285; J2405

== ENCOUNTER 2023-03-26 08:53 | Emergency (ER) | payer OTHER, SELFPAY ==
[2023-03-26 09:00] VITALS: BP 101/68; PULSE 85; RESP 19; TEMP 36.6; O2SAT 95; BMI 36.9
--- NOTE | 2023-03-26 09:13 | ED_ITS ---
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 Patient sta juli that for the last 5 days he has had upper back pain that is worse with movement. Patient denies any dizziness, lightheadedness, abdominal pain, nausea, vomiting, fever, chills, blurry vision, double vision, loss of vision, chest pain, difficulty breathing, shortness of breath, night sweats, pain with urination, increased urinary frequency, increased urinary urgency, blood in his urine or stool, syncope or a near syncopal episode, recent trauma or falls, bowel incontinence, bladder incontinence, bowel retention, bladder retention, or any other complaints at this time. Onset (ago): day(s) (5) Location: back Radiation: non-radiation Severity: mild Severity scale (1-10): 2 Quality: aching and dull Pain Consistency: intermittent Relieving factors: none Exacerbating factors: none Associated symptoms: denies other symptoms Treatments prior to arrival: none Related Data Previous Rx's Medication Instructions Recorded ibuprofen 600 mg tablet 600 mg PO Q6H PRN fever or pain 12/18/22 #30 tabs codeine 10 mg-guaifenesin 100 mg/5 10 ml PO Q6H PRN cough #237 mL 01/24/23 mL oral liquid lorazepam 1 mg tablet (Ativan) 1 mg PO BEDTIME PRN anxiety #15 02/16/23 tabs sertraline 50 mg tablet 50 mg PO QAM 30 days #30 tabs 02/16/23 tramadol 50 mg tablet 50 mg PO BID PRN severe pain 7 02/16/23 days #14 tabs ondansetron 4 mg disintegrating 4 mg PO TID PRN nausea and 03/11/23 tablet vomiting 5 days #10 tabs cyclobenzaprine 5 mg tablet 5 mg PO TID PRN muscle spasm 7 03/26/23 days #21 tabs prednisone 20 mg tablet 20 mg PO DAILY 7 days #7 tabs 03/26/23 Allergies Allergy/AdvReac Type Severity Reaction Status Date / Time No Known Allergies Allergy Verified 03/26/23 09:00 Review of Systems Constitutional: Constitutional: Reports no additional constitutional complaints, Denies chills, Denies fever(s) and Denies night sweats Eyes: Eyes: Reports no additional eye complaints, Denies blurry vision, Denies change in vision, Denies diplopia, Denies eye discharge, Denies loss of vision and Denies eye pain ENT: Denies dizziness Cardiovascular: Cardiovascular: Reports no additional cardiovascular complaints, Denies chest pain, Denies lightheadedness, Denies Loss of Co nsciousness and Denies dyspnea Respiratory: Respiratory: Reports no additional respiratory complaints and Denies dyspnea Gastrointestinal: Gastrointestinal: Reports no additional gastrointestinal complaints, Denies abdominal pain, Denies melena, Denies hematochezia, Denies change in bowel habits and Denies change in stool character Genitourinary: Genitourinary: Reports no additional male genitourinary complaints, Denies hematuria, Denies oliguria, Denies difficulty urinating, Denies dysuria, Denies urinary frequency, Denies urinary hesitancy, Denies urinary incontinence and Denies urinary urgency Musculoskeletal: Musculoskeletal: Reports no additional musculoskeletal complaints, Reports back pain, Denies numbness and Denies tingling Neurologic: Denies dizziness, Denies loss of vision, Denies numbness and Denies tingling Psychiatric: Psychiatric: Reports no additional psychiatric complaints Endocrine: Endocrine: Reports no additional endocrine complaints Hematologic/Lymphatic: Hematologic/Lymphatic: Reports no additional hematologic/lymphatic complaints Allergic/Immunologic: Allergic/Immunologic: Reports no additional all ergic/immunologic complaints PMFSH Past Medical History Attestation statement: The following information was validated with the patient. Source: old records reviewed and nursing notes reviewed Medical History Anxiety Obesity (BMI 30-39.9) Renal calculi Surgical History Hx laparoscopic cholecystectomy (~2007) Hx of appendectomy (~1994) Social History Social History Alcohol intake: never Patient Tobacco Use Status: Never used Tobacco e-Cigarette/Vaping Use: Never Used Physical Exam ED Vital Signs: Vital Signs - 24 hr 03/26/23 09:00 Temperature 98 F Pulse Rate 85 Respiratory Rate 19 Blood Pressure 101/68 Pulse Oximetry 95 Oxygen Delivery Method Room Air BMI result Body Mass Index 36.9 Const General: cooperative, no acute distress, alert and awake Nutritional Appearance: well nourished Orientation/consciousness: patient oriented x3 Limitations: no limitations HENMT Head: Yes normal to inspection and Yes atraumatic Ears: hearing grossly normal bilaterally and external ears normal General nose exam: Normal external nose present, no nasal discharge noted and no epistaxis Face and sinus: Yes normal facial exam, No abrasion and No laceration Mouth: Normal oral and palatal mucosa present, no drooling and no muffled voice Eyes General: appearance normal, both eyes and all related structures Periorbital: periorbital findings normal Eyelids: Yes eyelids normal Conjunctivae: conjunctivae normal Pupils: Equal, round and reactive pupils present EOM: EOMs intact bilaterally Neck Neck: Yes normal visual inspection, Yes full ROM and Yes no lymphadenopathy Chest Chest palpation & inspection: normal inspection of the chest Resp Effort & Inspection: normal respiratory effort and able to speak in complete sentences GI Inspection: Yes normal to inspection General: Yes no CVA tenderness Back/Spine/Pelvis Back: no CVA tenderness Cervical Spine: normal cervical lordosis and cervical ROM normal Thoracic/Lumbar Spine: thoracic and lumbar spine normal to inspection Pelvis: no pain with anterior-posterior compression Neuro General: patient oriented x3 and moves all extremities Cranial nerves: Yes Equal, round and reactive pupils present Cognition (Neuro): normal cognition Motor exam (neuro): 5/5 motor strength present throughout Sensory Exam: Normal double simultaneous stimulation for sensation Coordination: [id number] test normal Extrem General: Yes normal to inspection, Yes full ROM and Yes capillary refill normal Psych Appearance: grossly normal Mental Status: mental status grossly normal Affect: normal affect Attitude: cooperative Thought process: Normal thought process present Thought content: Normal thought content present Insight: Good insight present (Psych) Medical Decision Making Medical Decision Making MDM Narrative: Patient is a 52 year old assigned male at with a history of anxiety presenting to the emergency department today with upper back pain. Patient's physical exam was unremarkable. I explained my physical exam findings to the patient. I answered all questions asked by the patient. Patient received IM Toradol which he stated helped his symptoms significantly. I stressed the importance of the patient taking his medication as prescribed. I stressed the importance of the patient following up with his primary care provider. I stressed the importance of the patient returning to the emergency department immediately if his symptoms were to worsen or if he were to develop any dizziness, shortness of breath, difficulty breathing, chest pain, blurry vision, loss of vision, nausea, vomiting, abdominal pain, fever, chills, back pain, or any other complaints. Patient verbalized agreement and understanding with this treatment plan and discharge. Differential Diagnosis Differential Diagnoses: The differential diagnosis associated with the presentation includes mechanical back pain Discharge Plan Discharge Clinical Impression: Back pain Patient Disposition: Home, Self-Care Instructions: Back Pain (ED) Additional Instructions: Follow up with your primary care provider. Return to the emergency department immediately if your symptoms worsen or if you develop any dizziness, shortness of breath, difficulty breathing, chest pain, blurry vision, loss of vision, nausea, vomiting, abdominal pain, fever, chills, back pain, or any other complaints. Kade un seguimiento con johnson proveedor de atenci?n primaria. Regrese al departamento de emergencias de inmediato si ryan s?ntomas empeoran o si presenta mareos, falta de aire, dificultad para respirar, dolor de pecho, visi?n borrosa, p?rdida de la visi?n, n?useas, v?mitos, dolor abdominal, fiebre, escalofr?os, dolor de espalda o cualquier otras quejas. Prescriptions: New prednisone 20 mg tablet 20 mg PO DAILY 7 Days Qty: 7 0RF cyclobenzaprine 5 mg tablet 5 mg PO TID PRN (Reason: muscle spasm) 7 Days Qty: 21 0RF No Action ibuprofen 600 mg tablet 600 mg PO Q6H PRN (Reason: fever or pain) Qty: 30 0RF codeine-guaifenesin 10-100 mg/5 mL liquid 10 ml PO Q6H PRN (Reason: cough) Qty: 237 0RF ondansetron 4 mg tablet,disintegrating 4 mg PO TID PRN (Reason: nausea and vomiting) 5 Days Qty: 10 0RF lorazepam [Ativan] 1 mg tablet 1 mg PO BEDTIME PRN (Reason: anxiety) Qty: 15 0RF sertraline 50 mg tablet 50 mg PO QAM 30 Days Qty: 30 3RF tramadol 50 mg tablet 50 mg PO BID PRN (Reason: severe pain) 7 Days Qty: 14 0RF Rx Instructions: Take only as needed for severe pain - due to kidney stones Referrals: Codey Raygoza MD [Primary Care Provider] - Stand Alone Forms: Work/School Release Print Language: French
[2023-03-26] MEDS: Ketorolac Tromethamine 15 MG/ML VIAL IM (09:30)
== END 2023-03-26 09:33 | disposition home or self-care (01) ==
PROVIDERS: Emergency Provider Emergency Medicine; PCP Internal Medicine
DX: M54.50 Low back pain, unspecified (principal); M54.6 Pain in thoracic spine; Z79.899 Other long term (current) drug therapy
CPT/HCPCS: 96372; 99284; J1885

== ENCOUNTER 2023-06-15 13:19 | Outpatient (AMB) | payer OTHER, SELFPAY ==
--- NOTE | 2023-06-15 12:03 | A.OFFVIS_ITS ---
Intake Vital Signs 06/15/23 14:04 Comment Unable to void Intake Visit Reasons: Calculus of kidney Intake Note: NEW Patient presents today to established treatment for Calculus of kidney: Meds- None Allergies to Antibiotic- No Known Allergies Blood Thinner- None Patient unable to void PVR- 95 ml Pilot Captain Required: Yes Pilot Captain Language: Crossing Flagman Name: PRUDENCE Jackson/JACOB GUZMAN Accompanied by: Self / Same As Patient Allergies No Known Allergies Allergy (Verified 06/15/23 13:25) HPI HPI Comments History of Present Illness Details Franc is a 52-year-old male who presents today to the office to establish as a new patient for an evaluation of calculus of the kidney. 06/15/2023? The patient is a Prydein[place] speaking male. 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 He reports occasional?dysuria and denies any hematuria at this time. ?Admits?to?weak?stream. He states that he had prior?stone?procedure?with laser and stent about 5 years ago. Patient was not able to give a urine specimen today. Bladder?scan-95?mL I have reviewed CT of the abdomen/pelvis without contrast from 03/11/2023 revealed no hydronephrosis or obstructing calculus bilaterally. I have reviewed X-ray of the KUB results from 02/26/2023 revealed No acute process seen.? Suboptimal visualization of kidneys. Radiopaque calculi are not visualized. Plan: Prescribed tamsulosin 0.4 mg daily. PSA screening was ordered. Follow up in 3 months. [facility] Medical History Anxiety Obesity (BMI 30-39.9) Renal calculi Surgical History Hx laparoscopic cholecystectomy (~2007) Hx of appendectomy (~1994) Family History Father No problems noted. Mother No problems noted. Social History Alcohol intake: former Patient Tobacco Use Status: Never used Tobacco e-Cigarette/Vaping Use: Never Used Review of Systems Const All systems reviewed & are unremarkable except as noted in HPI and below Reports no additional complaints Eyes Reports no additional complaints ENT Reports no additional complaints Card Denies dyspnea Resp Denies cough and Denies dyspnea GI Reports no additional complaints Musc Reports no additional complaints Skin/Breast Denies rash and Denies unusual bruising Neuro Reports no additional complaints Psych Reports no additional complaints Endo Reports no additional complaints Jam/Lymph Reports no additional complaints Aller/Immun Reports no additional complaints Physical Exam Const General: healthy appearing, no acute distress and well developed Orientation/consciousness: patient oriented x3 HEENT Head: Yes normocephalic and Yes atraumatic Eyes Conjunctivae: conjunctivae normal Neck Neck: Yes normal visual inspection Chest Chest palpation & inspection: normal inspection of the chest Resp Effort & Inspection: normal respiratory effort Cardio Rate: regular rate GI Inspection: Yes normal to inspection Palpation (GI): Soft to palpation Skin General skin exam: no rashes or lesions noted Neuro General: patient oriented x3 Extrem General: No pedal edema Psych Appearance: grossly normal Affect: normal affect Office Procedures Post Void Residual Post Residual Void Post Void Residual (PVR): 95 31891-Aqih Void Residual by ultrasound Results Reviewed Results Reviewed: Date of Service: 03/11/23 EXAMINATION: CT ABDOMEN AND PELVIS WITHOUT CONTRAST? CLINICAL INFORMATION: Abdominal pain? COMPARISON: None available. FINDINGS: LUNG BASES: The visualized lung bases are unremarkable.? LIVER, GALLBLADDER, AND BILIARY TREE: The liver is normal in size, shape, and attenuation. No focal hepatic lesion or biliary ductal dilatation is identified on this noncontrast exam. Patient is status post cholecystectomy.? PANCREAS: Unremarkable.? SPLEEN: Unremarkable.? ADRENAL GLANDS: Unremarkable.? KIDNEYS AND URETERS: Right kidney appears malrotated. No hydronephrosis or obstructing calculus bilaterally.? BLADDER: Mildly distended and grossly unremarkable.? GASTROINTESTINAL TRACT: Assessment for wall thickening in some segments of the colon is limited due to luminal collapse, though no significant pericolonic stranding is seen to strongly suggest a colitis. No evidence of bowel obstruction. No free fluid or free air is seen. ABDOMINAL WALL: Bilateral fat-containing inguinal hernias.? LYMPH NODES: Normal. VASCULAR: Unremarkable. PELVIC VISCERA: Prostate gland appears mildly prominent.? OSSEOUS STRUCTURES: Scattered endplate osteophytes are present in the spine.? IMPRESSION: No acute findings identified in the abdomen/pelvis. Date of Service: 02/26/23 EXAMINATION: XR ABDOMEN KUB CLINICAL INDICATION: Calculus of kidney. Right-sided pain? COMPARISON: None available.? FINDINGS: There is scattered stool and gas seen throughout the colon without significant distention. The small bowel loops are normal caliber. Significant surgical samantha in right upper quadrant likely from previous cholecystectomy. There are phleboliths in the pelvis. The kidneys are suboptimally visualized unenhanced radiopaque calculi cannot be excluded. No gross bony abnormality. IMPRESSION: 1.? Mild constipation. No acute process seen. 2.? Suboptimal visualization of kidneys. Radiopaque calculi are not visualized but cannot be excluded. Assessment & Plan Assessment & Plan (1) Weak urinary stream: Code(s): R39.12 - Poor urinary stream (2) History of kidney stones: Code(s): Z87.442 - Personal history of urinary calculi (3) Screening PSA (prostate specific antigen): Code(s): Z12.5 - Encounter for screening for malignant neoplasm of prostate Plan Prescribed tamsulosin 0.4 mg daily. PSA screening was ordered. Follow up in 3 months. Orders: Orders PSA,Total (Free>4and<10) 06/15/23 Z12.5 - Encounter for screening for malignant neoplasm of prostate AMB Post Void Residual by ultrasound 06/15/23 N39.8 - Other specified disorders of urinary system Medications: New tamsulosin (Flomax) 0.4 mg PO BEDTIME 90 caps 1RF Patient Instructions: The patient had an opportunity to ask questions regarding treatment plan. All questions were answered. Imaging, Laboratory studies and physical exam results were discussed and reviewed in detail. No major barriers to understanding were identified. The patient expressed understanding and agreement with the above treatment plan.? ? ? The patient is aware they should contact our office by phone for worsening of their current condition or the appearance of new symptoms. Compliance is encouraged with any medications and followup testing that is ordered.? ? ? It is a privilege to be allowed the opportunity to participate in the urologic care of your patient. If you have any questions or concerns regarding treatment for the above conditions please do not hesitate to contact me. The office telephone contact is [phone].? ? ? This note is constructed in part using voice recognition software. While every effort has been made to ensure accuracy production painter errors may have been included.? ? ? Yours sincerely,? ? ? Hussain Cardenas MD? ? Coding Level of Care Code New Pt Level 4 (89943) Diagnoses Weak urinary stream R39.12 History of kidney stones Z87.442 Screening PSA (prostate specific antigen) Z12.5 CPT Codes Post Residual Void - PVR CPT Code: 12726-[address] Void Residual by ultrasound ([id number])
== END 2023-06-15 14:32 | disposition home or self-care (01) ==
PROVIDERS: PCP Internal Medicine; Visit Provider Urology
DX: R39.12 Poor urinary stream (principal); Z87.442 Personal history of urinary calculi; Z12.5 Encounter for screening for malignant neoplasm of prostate
CPT/HCPCS: 99204

== ENCOUNTER → 2023-06-15 13:19 | Outpatient (BNVA) | payer OTHER, SELFPAY | PROVIDERS: PCP Internal Medicine; Visit Provider Urology | DX: Z12.5 Encounter for screening for malignant neoplasm of prostate (principal); R39.12 Poor urinary stream; Z87.442 Personal history of urinary calculi | CPT/HCPCS: 51798 ==

== ENCOUNTER 2023-07-02 01:47 | Emergency (ER) | payer OTHER, SELFPAY ==
[2023-07-02 01:48] VITALS: BP 91/50; PULSE 78; RESP 16; TEMP 36.3; O2SAT 94; BMI 35.4
[2023-07-02 02:55] LABS: MANUAL DIFF FLAG NO
[2023-07-02 02:57] LABS: Basophils Absolute Auto 0.1 X10*3/uL (0.0-0.2); Basophils Percent Auto 1.1 % (0-2); Eosinophils Absolute Auto 0.2 X10*3/uL (0.0-0.4); Eosinophils Percent Auto 4.4 % (0-4); Hematocrit 42.2 % (42.0-52.0); Hemoglobin 14.2 g/dl (14.0-18.0); Imm Gran Abs Auto 0.01 X10*3/uL (0.00-0.03); Imm Gran Pct Auto 0.2 % (0.0-0.4); Lymphocytes Absolute Auto 1.8 X10*3/uL (1.2-4.9); Lymphocytes Percent Auto 39.2 % (20-40); Mean Corpuscular HGB Conc 33.6 g/dl (31.0-36.0); Mean Corpuscular Hemoglobin 31.1 pg (27.0-33.0); Mean Corpuscular Volume 92.3 fL (80.0-98.0); Mean Platelet Volume 9.8 fL (9.4-12.4); Monocytes Absolute Auto 0.5 X10*3/uL (0.1-1.2); Monocytes Percent Auto 10.3 % (2-11); Neutrophils Absolute Auto 2.1 x10*3/uL (2.0-8.3); Neutrophils Percent Auto 44.8 % (45-73); Platelet Count 165 X10*3/uL (160-400); Red Blood Count 4.57 X10*6/uL (4.60-5.80); Red Cell Distribution Width 11.4 % (11.0-16.0); White Blood Count 4.6 X10*3/uL (4.8-10.8)
[2023-07-02 03:05] VITALS: BP 117/81; PULSE 73; RESP 18; TEMP 36.9; O2SAT 97
[2023-07-02 03:12] LABS: Alanine Aminotransferase 71 U/L (0-40); Albumin Level 3.7 g/dL (3.5-5.0); Alkaline Phosphatase 78 U/L (39-117); Anion Gap 11 (12-20); Aspartate Amino Transferase 30 U/L (5-37); Bilirubin Total 0.7 mg/dL (0.0-1.0); Blood Urea Nitrogen 15 mg/dL (9-16); Carbon Dioxide 25 mmol/L (22-29); Chloride 109 mmol/L (96-108); Creatinine Clr Calc Pharmacy 107.3; Estimated Glomerular Filt Rate > 60; Glucose Random 152 mg/dL (60-115); Potassium 3.7 mmol/L (3.3-5.1); Sodium 141 mmol/L (135-145); Total Protein 6.7 g/dL (6.5-8.0)
[2023-07-02 03:19] LABS: Appearance Urine Clear; Color Urine Dark Yellow; Glucose Urine UA Negative (Negative); Leukocyte Esterase Urine Negative (Negative); Nitrite Urine Negative (Negative); PH 5.5 (5.0-9.0); Specific Gravity - Urine >= 1.030 (1.005-1.025); Urine Blood Negative (Negative); Urine Ketones Trace mg/dL (Negative); Urine Protein Trace mg/dL (Neg-Trace)
--- NOTE | 2023-07-02 03:30 | PC.NURSE ---
Patient is a Korean speaking male. Patient arrived to ED to be evaluated for right flank/abdominal pain and burning sensation with urinations x3 days.Patient is alert and oriented x5, VSS. 20 G IV line established in L AC, labs drawn per MD order/ urine specimen collected and sent to lab. Call [facility]one within patient's reach.
[2023-07-02 04:04] VITALS: BP 102/60; PULSE 74; RESP 18; TEMP 36.7; O2SAT 98
--- NOTE | 2023-07-02 04:06 | MHC.EDTECH ---
Patient was changed into hospital attire, hourly rounds and vitals completed,patient is awaiting to be seen at this time,call [facility] within reach.
--- NOTE | 2023-07-02 05:12 | ED_ITS ---
HPI - Back Pain/Injury General Chief Complaint: Back Pain/Injury Stated Complaint: lower back pain Time Seen by Provider: 07/02/23 04:00 Source: patient and family () Mode of arrival: ambulatory History of Present Illness HPI Narrative: This is a 52-year-old male with chronic back pain that is not associated with any fever, chills, IVDA use, alcohol use, nausea, vomiting, bowel or bladder dysfunction and patient states that the pain is primarily on his right side and radiates down his right lower extremity without numbness or tingling. Related Data Previous Rx's Medication Instructions Recorded ibuprofen 600 mg tablet 600 mg PO Q6H PRN fever or pain 12/18/22 #30 tabs codeine 10 mg-guaifenesin 100 mg/5 10 ml PO Q6H PRN cough #237 mL 01/24/23 mL oral liquid lorazepam 1 mg tablet (Ativan) 1 mg PO BEDTIME PRN anxiety #15 02/16/23 tabs sertraline 50 mg tablet 50 mg PO QAM 30 days #30 tabs 02/16/23 ondansetron 4 mg disintegrating 4 mg PO TID PRN nausea and 03/11/23 tablet vomiting 5 days #10 tabs cyclobenzaprine 5 mg tablet 5 mg PO TID PRN muscle spasm 7 03/26/23 days #21 tabs prednisone 20 mg tablet 20 mg PO DAILY 7 days #7 tabs 03/26/23 tramadol 50 mg tablet 50 mg PO BID PRN severe pain 7 05/08/23 days #14 tabs tamsulosin 0.4 mg capsule (Flomax) 0.4 mg PO BEDTIME #90 caps 06/15/23 cyclobenzaprine 5 mg tablet 5 mg PO BEDTIME PRN muscle spasm 07/02/23 #4 tabs ketorolac 10 mg tablet 10 mg PO Q6H PRN pain 5 days #20 07/02/23 tabs Allergies Allergy/AdvReac Type Severity Reaction Status Date / Time No Known Allergies Allergy Verified 06/15/23 13:25 Review of Systems Review of Systems: Pertinent positives and negatives as stated in HPI [facility] Past Medical History Source: nursing notes reviewed Medical History Anxiety Obesity (BMI 30-39.9) Renal calculi Surgical History Hx laparoscopic cholecystectomy (~2007) Hx of appendectomy (~1994) Family History Family History Father No problems noted. Mother No problems noted. Social History Social History Alcohol intake: former Patient Tobacco Use Status: Never used Tobacco Smoked in Last 30 Days: Yes e-Cigarette/Vaping Use: Never Used Use of substances other than those prescribed or required for medical reasons: No Advance Directives: No Advance Directives Information Provided: No Physical Exam Vital Signs: Vital Signs: Last Vital Signs Temp 98.0 F 07/02/23 04:04 Pulse 74 07/02/23 04:04 Resp 18 07/02/23 04:04 BP 102/60 07/02/23 04:04 Pulse Ox 98 07/02/23 04:04 O2 Del Method Room Air 07/02/23 04:04 BMI result Body Mass Index 35.4 VITAL SIGNS: Reviewed. GENERAL: Well developed, well nourished, in no acute distress. HEAD: Normocephalic/atraumatic EYES: PERRLA, EOMI EARS: Ext canals without abnormality NOSE: Nares patent bilateral OROPHARYNX: no oral lesions noted, posterior pharynx clear NECK: Supple, no adenopathy LUNGS: Normal breath sounds. No adventitious sounds or accessory muscle use. SpO2<98> CARDIOVASCULAR: Regular rate and rhythm without noted murmurs ABDOMEN: Soft, non-tender, non-distended with bowel sounds. BACK: No midline vertebral tenderness, no step-offs MUSCULOSKELETAL: No tenderness, deformities, or effusions noted on gross inspection. EXTREMITIES: No cyanosis, clubbing or edema. SKIN: Inspection of the skin reveals no rashes NEUROLOGIC: Alert and oriented x 4. Strength and sensation to light touch were grossly intact x 4, DTRs intact. Medications Administered Discontinued Medications Generic Name Dose Route Start Last Admin Trade Name Freq PRN Reason Stop Dose Admin Acetaminophen 975 mg 07/02/23 04:48 07/02/23 05:15 Acetaminophen 325 Mg Tablet PO 07/02/23 04:49 975 mg ONCE ONE Administration Cyclobenzaprine HCl 5 mg 07/02/23 04:48 07/02/23 05:16 Cyclobenzaprine Hcl 5 Mg Tablet PO 07/02/23 04:49 5 mg ONCE ONE Administration Ketorolac Tromethamine 15 mg 07/02/23 04:48 07/02/23 05:16 Ketorolac Tromethamine 15 Mg/Ml Vial IM 07/02/23 04:49 15 mg ONCE ONE Administration Lidocaine 1 patch 07/02/23 04:48 07/02/23 05:15 Lidocaine 4 % Patch Adh..Patch TRANSDERMA 07/02/23 04:49 1 patch ONCE ONE Administration Protocol Medical Decision Making Medical Decision Making [facility] Narrative: 52-year-old male with history and clinical presentation most consistent with acute on chronic back pain without evidence to suggest spinal abscess/cauda equina, patient has no focal deficits or fevers. No clinical suspicion for renal colic/appendicitis. I reviewed all investigations and hematologic indices do not demonstrate any anemia or thrombocytopenia, patient does have a leukopenia. Chemistry indices are negative for electrolyte abnormality and no LOUIS. Liver enzymes are within normal limits aside from a chronically stable ALT. Urinalysis is otherwise nega tive for UTI or hematuria. My interpretation is that this patient has acute on chronic musculoskeletal/back pain Patient received combination Tylenol/Toradol/Flexeril as well as a lidocaine patch. On re-evaluation patient is gradually improving and is discharged home with continued course of current treatment. Differential Diagnosis Differential Diagnoses: The differential diagnosis associated with the presentation includes Please see the discussion above Admission/Observation Consideration of admission/observation: Escalation of care including admission/observation considered Please see the discussion above Lab Data [facility] Lab Attestation statement: I reviewed the patient's lab results. Please see the discussion above 07/02/23 02:50 07/02/23 02:50 Labs: Lab Results 07/02/23 07/02/23 07/02/23 Range/Units 02:50 02:50 03:02 WBC 4.6 L (4.8-10.8) X10*3/uL RBC 4.57 L (4.60-5.80) X10*6/uL Hgb 14.2 (14.0-18.0) g/dl Hct 42.2 (42.0-52.0) % MCV 92.3 (80.0-98.0) fL MCH 31.1 (27.0-33.0) pg MCHC 33.6 (31.0-36.0) g/dl RDW 11.4 (11.0-16.0) % Plt Count 165 (160-400) X10*3/uL MPV 9.8 (9.4-12.4) fL Immature Gran % (Auto) 0.2 (0.0-0.4) % Neut % (Auto) 44.8 L (45-73) % Lymph % (Auto) 39.2 (20-40) % Butts % (Auto) 10.3 (2-11) % Eos % (Auto) 4.4 H (0-4) % Baso % (Auto) 1.1 (0-2) % Lymph # (Auto) 1.8 (1.2-4.9) X10*3/uL Butts # (Auto) 0.5 (0.1-1.2) X10*3/uL Eos # (Auto) 0.2 (0.0-0.4) X10*3/uL Baso # (Auto) 0.1 (0.0-0.2) X10*3/uL Abs Immat Gran (auto) 0.01 (0.00-0.03) X10*3/uL Absolute Neuts (auto) 2.1 (2.0-8.3) x10*3/uL Absolute Nucleated RBC 0.000 (0.0-0.012) X10*3/uL Nucleated RBC % (auto) 0.0 (0.0-0.2) /100WBC Sodium 141 (135-145) mmol/L Potassium 3.7 (3.3-5.1) mmol/L Chloride 109 H (96-108) mmol/L Carbon Dioxide 25 (22-29) mmol/L Anion Gap 11 L (12-20) BUN 15 (9-16) mg/dL Creatinine 0.99 (0.5-1.4) mg/dL Estim Creat Clear Calc 107.3 Estimated GFR > 60 Random Glucose 152 H (60-115) mg/dL Calcium 9.0 (8.4-10.2) mg/dL Total Bilirubin 0.7 (0.0-1.0) mg/dL AST 30 (5-37) U/L ALT 71 H (0-40) U/L Alkaline Phosphatase 78 (39-117) U/L Total Protein 6.7 (6.5-8.0) g/dL Albumin 3.7 (3.5-5.0) g/dL Urine Color Dark Yellow Urine Appearance Clear Urine pH 5.5 (5.0-9.0) Ur Specific [place] >= 1.030 H (1.005-1.025) Urine Protein Trace (Neg-Trace) mg/dL Urine Glucose (UA) Negative (Negative) mg/dL Urine Ketones Trace (Negative) mg/dL Urine Blood Negative (Negative) Urine Nitrite Negative (Negative) Ur Leukocyte Esterase Negative (Negative) External Record Review External record reviewed: Outpatient record, Prior outpatient labs and Prior outpatient radiology Discharge Plan Discharge Clinical Impression: Chronic back pain Patient Disposition: Home, Self-Care Instructions: Back Pain (ED), Lower Back Exercises (ED) Additional Instructions: 1. Reanudar todos los medicamentos caseros seg?n lo recetado. 2. Tylenol 1000 mg, por v?a oral, cada 6 horas seg?n sea necesario para controlar el dolor. No exceda los 4000 mg en 24 horas. 3. Parche de lidoca?na, apl?quelo en el ?amelia de m?xima sensibilidad wayne se indica en el paquete exterior. 4. Kade un seguimiento con johnson m?dico de atenci?n primaria el michelle por la ma?myrtle y analice edwin derivaci?n para fisioterapia. Regrese a la brie de emergencias si los s?ntomas empeoran. 1. Resume all home medications as prescribed. 2. Tylenol 1000 mg, orally, every 6 hours as needed for pain control. Do not exceed 4000 mg within 24 hours. 3. Lidocaine patch, apply to area of maximal tenderness as directed on the outside packaging. 4. Please follow-up with your primary care doctor on Sunday morning and discuss a referral for physical therapy. Return to the ER for any worsening symptoms. Prescriptions: New ketorolac 10 mg tablet 10 mg PO Q6H PRN (Reason: pain) 5 Days Qty: 20 0RF Rx Instructions: Patient received Toradol in the emergency room cyclobenzaprine 5 mg tablet 5 mg PO BEDTIME PRN (Reason: muscle spasm) Qty: 4 0RF No Action tramadol 50 mg tablet 50 mg PO BID PRN (Reason: severe pain) 7 Days Qty: 14 0RF Rx Instructions: Take only as needed for severe pain - due to kidney stones ibuprofen 600 mg tablet 600 mg PO Q6H PRN (Reason: fever or pain) Qty: 30 0RF codeine-guaifenesin 10-100 mg/5 mL liquid 10 ml PO Q6H PRN (Reason: cough) Qty: 237 0RF ondansetron 4 mg tablet,disintegrating 4 mg PO TID PRN (Reason: nausea and vomiting) 5 Days Qty: 10 0RF prednisone 20 mg tablet 20 mg PO DAILY 7 Days Qty: 7 0RF cyclobenzaprine 5 mg tablet 5 mg PO TID PRN (Reason: muscle spasm) 7 Days Qty: 21 0RF lorazepam [Ativan] 1 mg tablet 1 mg PO BEDTIME PRN (Reason: anxiety) Qty: 15 0RF sertraline 50 mg tablet 50 mg PO QAM 30 Days Qty: 30 3RF tamsulosin [Flomax] 0.4 mg capsule 0.4 mg PO BEDTIME Qty: 90 1RF Referrals: Codey Raygoza MD [Primary Care Provider] - Print Language: Malagasy
[2023-07-02] MEDS: Lidocaine 4 % Patch ADH..PATCH 1 PATCH TRANSDERMA (05:15)
[2023-07-02] MEDS: Acetaminophen 325 MG TABLET 975 MG PO (05:15)
[2023-07-02] MEDS: Cyclobenzaprine HCl 5 MG TABLET PO (05:16)
[2023-07-02] MEDS: Ketorolac Tromethamine 15 MG/ML VIAL IM (05:16)
== END 2023-07-02 07:08 | disposition home or self-care (01) ==
PROVIDERS: Emergency Provider Student in an Organized Health Care Education/Training Program; PCP Internal Medicine
DX: M54.50 Low back pain, unspecified (principal); Z79.899 Other long term (current) drug therapy
CPT/HCPCS: 36415; 80053; 81003; 85025; 96372; 99284; J1885

== ENCOUNTER 2023-08-31 13:18 | Outpatient (AMB) | payer OTHER, SELFPAY ==
[2023-08-31 13:23] VITALS: BP 126/82; PULSE 92; O2SAT 96; BMI 36.2
--- NOTE | 2023-08-31 13:23 | A.OFFPC_ITS ---
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: No Accompanied by: Self / Same As Patient Allergies sertraline Adverse Reaction (Intermediate, Verified 09/01/23 18:16) nausea tamsulosin Adverse Reaction (Intermediate, Uncoded 09/01/23 18:16) headache tramadol Adverse Reaction (Intermediate, Uncoded 09/01/23 08:48) nausea Medication List - Last Reconciled 08/31/23 by Codey Raygoza MD acetaminophen (Acetaminophen Extra Strength) 1,000 mg (2 x 500 mg) PO Q6H PRN ibuprofen 800 mg PO Q8H PRN tizanidine 4 mg PO Q8H PRN 30 days Tobacco use date assessed: 08/31/23 Dental Screening Dental Screen Date: 08/31/23 Did you have a dental visit in the last 12 months?: Yes Did you have a dental problem in the last 6 months where you did not have access to dental care?: No Was dental information given to patient?: Patient has dentist HPI Annual Exam HPI Details Patient comes in today for his annual physical examination States that he continues to experience increased pain over his entire back, which he states has been going on for a while now Has been taking Ibuprofen previously but had to stop taking it as it was starting to bother his stomach Was prescribed Tramadol previously for some unrelated pain but states that Tramadol made him feel nauseous and he stopped taking it as well Would like to see if something else can be prescribed to help with his back pain Adds that he had a family member that was recently diagnosed with colon cancer and he would like to request a referral for a colonoscopy He denies any headaches or dizziness Denies any chest pains, no SOB No nausea/vomiting, no abdominal pain No change in bowel habits noted He denies any acute urinary symptoms PFSH Medical History Obesity (BMI 30-39.9) Anxiety Renal calculi Surgical History Hx of appendectomy (~1994) Hx laparoscopic cholecystectomy (~2007) Family History Father No problems noted. Mother No problems noted. Social History Alcohol intake: former Patient Tobacco Use Status: Never used Tobacco e-Cigarette/Vaping Use: Never Used Cognitive needs: No Hearing needs: No Vision needs: No Questionnaire PHQ-9 Over the last 2 weeks, how often have you been bothered by any of the following problems? 1. Little interest or pleasure in doing things: not at all 2. Feeling down, depressed, or hopeless: several days 3. Trouble falling or staying asleep, or sleeping too much: not at all 4. Feeling tired or having little energy: not at all 5. Poor appetite or overeating: not at all 6. Feeling bad about yourself - or that you are a failure or have let yourself or your family down: not at all 7. Trouble concentrating on things, such as reading the newspaper or watching television: not at all 8. Moving or speaking so slowly that other people could have noticed. Or the opposite - being so fidgety or restless that you have been moving around a lot more than usual: not at all 9. Thoughts that you would be better off or of hurting yourself in some way: not at all Total score: 1 Depression Screening Interpretation: Negative Depression Screening Done: Yes 45881 - PHQ-9 Billing: Yes Source: Developed by Drs. Cj Stahl, Lexie Clemens, Primo Albert and colleagues, with an educational flaco from [employer]. Thrive Questionnaire Date Thrive assessed: 08/31/23 I am a: Patient What is your living situation today?: I have a steady place to live Within the past 12 months, did the food you bought not last and you didn't have the money to get more?: Never true Within the past 12 months, did you worry whether your food would run out before you got money to buy more?: Never true Do you have trouble paying for medicines?: No Do you have trouble getting transportation to medical appointments?: No Do you have trouble paying your heating and electricity bill?: No Do you have trouble taking care of your child, family member or friend?: No Do you have trouble with day-to-day activities such as bathing, preparing meals, shopping, managing finances, etc.?: No Are you currently unemployed and looking for a job?: No Are you interested in more education?: No Please select the resources that you would like help with: None Currently or been in a relationship where the following occur: no concerns reported AUDIT C Alcohol Use Questionnaire (AUDIT-C) 1. How often do you have a drink containing alcohol?: Never Total Score: 0 Score Reviewed/Action Taken: Yes DANNY-7 AMB Questionnaire DANNY-7 Date DANNY - 7 assessed: 08/31/23 Feeling nervous, anxious, or on edge: 2 = More than half the days Not being able to stop or control worryin = Several days Worrying too much about different things: 1 = Several days Trouble relaxin = Not at all Being so restless that it is hard to sit still: 0 = Not at all Becoming easily annoyed or irritable: 0 = Not at all Feeling afraid as if something awful might happen: 0 = Not at all Total DANNY-7 score (0-4 normal; 5-9 mild; 10-14 moderate; 15-21 severe): 4 Source: Developed by Drs. Cj Stahl, Lexie Clemens, Primo Albert and colleagues, with an educational flaco from [employer]. Review of Systems Const Denies chills, Reports fatigue, Denies fever(s), Denies headache(s), Denies malaise and Denies weakness Eyes Denies blurry vision, Denies change in vision, Denies irritation and Denies itchy eyes ENT Denies dysphagia, Denies dizziness, Denies otalgia, Denies headache(s), Denies nasal congestion, Denies neck pain, Denies odynophagia and Denies sore throat Card Denies chest pain, Denies rapid heart rate, Denies irregular heart rhythm, Denies palpitations and Denies dyspnea Resp Denies chest congestion, Denies cough, Denies dyspnea and Denies wheezing GI Denies abdominal pain, Denies bloating, Denies constipation, Denies dysphagia, Denies heartburn, Denies diarrhea, Denies nausea, Denies odynophagia and Denies vomiting Denies hematuria, Denies difficulty urinating, Denies dysuria, Denies urinary frequency and Denies urinary urgency Musc Reports back pain (reportedly increasing lately), Denies arthralgias, Denies joint swelling, Denies muscle weakness and Denies neck pain Skin/Breast Denies change in pigmentation, Denies lesions, Denies rash and Denies unusual bruising Neuro Denies dizziness, Denies headache(s), Denies paresthesias and Denies weakness Psych Reports anxiety Endo Reports fatigue and Denies palpitations Aller/Immun Denies itchy eyes and Denies wheezing Physical exam (Primary Care) Vital Signs: Last Vital Signs Pulse 92 08/31/23 13:23 BP 126/82 08/31/23 13:23 Pulse Ox 96 08/31/23 13:23 Oxygen Delivery Method Room Air 08/31/23 13:23 BMI result Body Mass Index 36.2 Tobacco/Smoking Status: Tobacco use Status Tobacco use date assessed 08/31/23 08/31/23 13:29 Patient Tobacco Use Status Never used Tobacco 08/31/23 13:29 e-Cigarette/Vaping Use Never Used 08/31/23 13:29 PHQ-9: PHQ-9 Score PHQ-9: Total score 1 09/01/23 09:00 Depression Screening Interpretation: Negative Thrive Assessment: Date of Thrive Assessment Date Thrive assessed 08/31/23 08/31/23 13:29 Currently or been in a relationship where the following occur: no concerns reported Const General: no acute distress, alert and awake Orientation/consciousness: patient oriented x3 HENMT Head: Yes normocephalic and Yes atraumatic Ears: external ears normal, TM's normal bilaterally and EAC's normal General nose exam: No nasal discharge present Face and sinus: Yes normal facial exam and Yes sinuses nontender Teeth and gingiva: dentition normal Throat: Yes posterior oropharynx normal and Yes tonsils normal (no TP congestion) Eyes Eyelids: Yes eyelids normal Conjunctivae: conjunctivae normal Pupils: Equal, round and reactive pupils present EOM: EOMs intact bilaterally Neck Neck: Yes no lymphadenopathy and Yes supple Thyroid: Thyroid normal Resp Auscultation: clear to auscultation bilaterally, no rales and no wheezes Cardio Rate: regular rate Rhythm: regular rhythm Heart sounds: no murmurs GI Palpation (GI): Soft to palpation, nontender and No hepatosplenomegaly present Auscultation: normal bowel sounds General: Yes no CVA tenderness Back/Spine/Pelvis Back: no CVA tenderness Thoracic/Lumbar Spine: thoracic spinal tenderness and lumbar spinal tenderness Skin Lesions: no lesions Rashes: no rashes Neuro General: patient oriented x3, moves all extremities, no focal motor deficits and CN's II-XI intact bilaterally Cranial nerves: Yes Equal, round and reactive pupils present Cognition (Neuro): normal cognition Gait exam (Neuro): Normal gait present Extrem General: Yes no clubbing, cyanosis or edema Assessment and Plan Assessment & Plan (1) Annual physical exam: Code(s): Z00.00 - Encounter for general adult medical examination without abnormal findi ngs Plan: Check labs (2) Back pain: Code(s): M54.9 - Dorsalgia, unspecified Qualifiers: Back pain laterality: midline Back pain location: back pain in unspecified location Chronicity: unspecified Qualified Code(s): M54.89 - Other dorsalgia Plan: Will send patient for thoracic and lumbar spine x-rays for further evaluation His abdominal and pelvic CT done back in February 2023 did indicate the presence of scattered endplate osteophytes in the spine Have advised patient that I am NOT going to be prescribing any opioids for his back pain As he was supposedly not able to tolerate Tramadol previously (due to nausea from the Rx), will D/C Tramadol Will start him back on Ibuprofen 800 mg TID PRN for pain - advised to take this with food everytime Will also start him on Tizanidine 4 mg TID PRN Advised that depending on how his x-rays come out, will refer him to physical therapy for his back pain; pain management may also be a consideration and we will look into this later (3) Renal calculi: Comment: right side Code(s): N20.0 - Calculus of kidney Plan: His KUB and abdominal/pelvic CT done back in February 2023 revealed NO renal stones although 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 Follow up with urology as scheduled (4) Anxiety: Code(s): F41.9 - Anxiety disorder, unspecified Plan: Continue Lorazepam 1 mg Q HS PRN He was started previously on Sertraline 50 mg Q AM but he reportedly could not tolerate the Rx due to side effects (5) Obesity (BMI 30-39.9): Code(s): E66.9 - Obesity, unspecified Plan: Discussed diet/exercise as tolerated/lose weight (6) Colon cancer screening: Code(s): Z12.11 - Encounter for screening for malignant neoplasm of colon Plan: Will refer patient for screening colonoscopy Plan Follow up in 4 months Orders: Orders XR lumbar spine 2-3V Today M54.9 - Dorsalgia, unspecified Complete Blood Count Auto Diff Today M54.9 - Dorsalgia, unspecified, Z00.00 - Encounter for general adult medical examination without abnormal findings Comprehensive [place]. Panel Fast Today M54.9 - Dorsalgia, unspecified, Z00.00 - Encounter for general adult medical examination without abnormal findings Lipid Panel Today E78.00 - Pure hypercholesterolemia, unspecified, M54.9 - Dorsalgia, unspecified, Z00.00 - Encounter for general adult medical examination without abnormal findings TSH reflex Free T4 Today M54.9 - Dorsalgia, unspecified, Z00.00 - Encounter for general adult medical examination without abnormal findings Vitamin D 25-OH Total Today E55.9 - Vitamin D deficiency, unspecified, M54.9 - Dorsalgia, unspecified, Z00.00 - Encounter for general adult medical examination without abnormal findings Prostate Specific Antigen Scr Today M54.9 - Dorsalgia, unspecified, Z00.00 - Encounter for general adult medical examination without abnormal findings XR thoracic spine 3V Today M54.9 - Dorsalgia, unspecified UA CC w/rflx Micro + Cult Today M54.9 - Dorsalgia, unspecified, R30.0 - Dysuria, Z00.00 - Encounter for general adult medical examination without abnormal findin gs Referrals Gastroenterology Referral Z12.11 - Encounter for screening for malignant neoplasm of colon Medications: New tizanidine 4 mg PO Q8H PRN 90 tabs 1RF low back pain 30 days ibuprofen Take with food 800 mg PO Q8H PRN 90 tabs 1RF pain Coding Level of Care Code Est Pt Prev Care 40-64y(08908) Diagnoses Annual physical exam Z00.00 Midline back pain, unspecified back location, unspecified chronicity M54.89 Back pain laterality: midline Back pain location: back pain in unspecified location Chronicity: unspecified Renal calculi N20.0 Anxiety F41.9 Obesity (BMI 30-39.9) E66.9 Colon cancer screening Z12.11
== END 2023-08-31 14:27 | disposition home or self-care (01) ==
PROVIDERS: PCP Internal Medicine; Visit Provider Internal Medicine
DX: Z00.00 Encounter for general adult medical examination without abnormal findings (principal); M54.89 Other dorsalgia; N20.0 Calculus of kidney; F41.9 Anxiety disorder, unspecified
CPT/HCPCS: 99396

== ENCOUNTER 2023-09-01 08:25 | Outpatient (REF) | payer OTHER, SELFPAY ==
--- NOTE | ~2023-09-01 | XR_ITS ---
EXAMINATION: XR LUMBAR SPINE XR THORACIC SPINE CLINICAL INDICATION: Back pain. COMPARISON: X-ray abdomen 02/26/2023. TECHNIQUE: 3 views of the thoracic spine and 3 views of the lumbar spine. FINDINGS: LUMBAR SPINE: Surgical samantha in the right upper quadrant. Mild rightward curvature of the lumbar spine. Facet arthritis in the lower lumbar spine. Mild multilevel lumbar spondylosis. THORACIC SPINE: Degenerative changes on very limited images of the lower cervical spine. Multilevel degenerative changes with flowing anterior osteophytes in the [id number] thoracic spine. Thoracic vertebral body heights are preserved. Visualization of the upper thoracic spine is due to overlying bone and soft tissues. XR/XR thoracic spine 3V IMPRESSION: 1. Facet arthritis in the lower lumbar spine. 2. Mild multilevel lumbar spondylosis. 3. Degenerative changes on very limited images of the lower cervical spine. Dedicated views of the cervical spine should be considered for further evaluation. 4. Multilevel degenerative changes with flowing anterior osteophytes in the mid to lower thoracic spine. Visualization of the upper thoracic spine is due to overlying bone and soft tissues. CT scan could be considered for further evaluation if there is clinical is concern for fracture or other pathology.
--- NOTE | ~2023-09-01 | XR_ITS ---
EXAMINATION: XR LUMBAR SPINE XR THORACIC SPINE CLINICAL INDICATION: Back pain. COMPARISON: X-ray abdomen 02/26/2023. TECHNIQUE: 3 views of the thoracic spine and 3 views of the lumbar spine. FINDINGS: LUMBAR SPINE: Surgical samantha in the right upper quadrant. Mild rightward curvature of the lumbar spine. Facet arthritis in the lower lumbar spine. Mild multilevel lumbar spondylosis. THORACIC SPINE: Degenerative changes on very limited images of the lower cervical spine. Multilevel degenerative changes with flowing anterior osteophytes in the [id number] thoracic spine. Thoracic vertebral body heights are preserved. Visualization of the upper thoracic spine is due to overlying bone and soft tissues. XR/XR lumbar spine 2-3V IMPRESSION: 1. Facet arthritis in the lower lumbar spine. 2. Mild multilevel lumbar spondylosis. 3. Degenerative changes on very limited images of the lower cervical spine. Dedicated views of the cervical spine should be considered for further evaluation. 4. Multilevel degenerative changes with flowing anterior osteophytes in the mid to lower thoracic spine. Visualization of the upper thoracic spine is due to overlying bone and soft tissues. CT scan could be considered for further evaluation if there is clinical is concern for fracture or other pathology.
[2023-09-01 08:39] LABS: MANUAL DIFF FLAG NO
[2023-09-01 08:49] LABS: Basophils Absolute Auto 0.1 X10*3/uL (0.0-0.2); Basophils Percent Auto 1.3 % (0-2); Eosinophils Absolute Auto 0.2 X10*3/uL (0.0-0.4); Eosinophils Percent Auto 3.8 % (0-4); Hematocrit 46.8 % (42.0-52.0); Hemoglobin 15.9 g/dl (14.0-18.0); Imm Gran Abs Auto 0.02 X10*3/uL (0.00-0.03); Imm Gran Pct Auto 0.4 % (0.0-0.4); Lymphocytes Absolute Auto 1.8 X10*3/uL (1.2-4.9); Lymphocytes Percent Auto 33.3 % (20-40); Mean Corpuscular Hemoglobin 31.5 pg (27.0-33.0); Mean Corpuscular Volume 92.9 fL (80.0-98.0); Mean Platelet Volume 9.8 fL (9.4-12.4); Monocytes Absolute Auto 0.5 X10*3/uL (0.1-1.2); Monocytes Percent Auto 8.5 % (2-11); Neutrophils Absolute Auto 2.9 x10*3/uL (2.0-8.3); Neutrophils Percent Auto 52.7 % (45-73); Platelet Count 205 X10*3/uL (160-400); Red Blood Count 5.04 X10*6/uL (4.60-5.80); Red Cell Distribution Width 11.2 % (11.0-16.0); White Blood Count 5.5 X10*3/uL (4.8-10.8)
[2023-09-01 08:56] LABS: Appearance Urine Clear; Color Urine Dark Yellow; Glucose Urine UA Negative (Negative); Leukocyte Esterase Urine Trace (Negative); Nitrite Urine Negative (Negative); Specific Gravity - Urine >= 1.030 (1.005-1.025); UMIC TRIGGER UACC YES; Urine Blood Negative (Negative); Urine Ketones Trace mg/dL (Negative); Urine Protein Trace mg/dL (Neg-Trace)
[2023-09-01 08:59] LABS: Bacteria Urine None Seen (None Seen); RBC Urine 0-2 /HPF (0-2); WBC Urine 0-5 /HPF (0-5)
[2023-09-01 09:26] LABS: Alanine Aminotransferase 113 U/L (0-40); Albumin Level 4.2 g/dL (3.5-5.0); Alkaline Phosphatase 82 U/L (39-117); Anion Gap 12 (12-20); Aspartate Amino Transferase 41 U/L (5-37); Bilirubin Total 0.9 mg/dL (0.0-1.0); Blood Urea Nitrogen 19 mg/dL (9-16); Calcium 9.5 mg/dL (8.4-10.2); Carbon Dioxide 29 mmol/L (22-29); Chloride 104 mmol/L (96-108); Cholesterol 196 mg/dL (<200); Estimated Glomerular Filt Rate > 60; Glucose Fasting 131 mg/dL (60-99); HDL Cholesterol 42 mg/dL (>40); LDL Cholesterol Calculated 133 mg/dL (<100); Potassium 3.8 mmol/L (3.3-5.1); Sodium 141 mmol/L (135-145); Total Protein 7.8 g/dL (6.5-8.0); Triglycerides 106 mg/dL (<150)
[2023-09-01 09:38] LABS: Prostate Specific Antigen Scr 2.98 ng/mL (<0.05-4.0)
[2023-09-01 09:48] LABS: PSA,Total (Free>4and<10) 2.98 ng/mL (0.00-4.00); TSH reflex Free T4 1.26 uIU/mL (0.32-4.0)
== END 2023-09-01 08:26 | disposition home or self-care (01) ==
LOC: HO.LAB 08:25
PROVIDERS: Absent Provider Internal Medicine; PCP Internal Medicine; Visit Provider Urology
DX: Z00.00 Encounter for general adult medical examination without abnormal findings (principal); M54.9 Dorsalgia, unspecified; E78.00 Pure hypercholesterolemia, unspecified; E55.9 Vitamin D deficiency, unspecified; Z12.5 Encounter for screening for malignant neoplasm of prostate
CPT/HCPCS: 36415; 72072; 72100; 80053; 80061; 81001; 82306; 84153; 84443; 85025

== ENCOUNTER 2023-09-10 10:40 | Outpatient (AMB) | payer OTHER, SELFPAY ==
--- NOTE | 2023-09-10 11:27 | A.OFFVIS_ITS ---
Intake Intake Visit Reasons: 3 month psa Intake Note: Patient presents today for a follow-up on PSA Results: Meds- None Allergies to Antibiotic- No Known Allergies Blood Thinner- None PSA- 2.98 ng/mL, 09/01/2023 PVR- 0 mL Merchandise Marker Required: Yes Merchandise Marker Language: Property Management Supervisor Name: PRUDENCE Jackson/MEGAN JAMES Information Interpreted: non-clinical & clinical Accompanied by: Self / Same As Patient Allergies sertraline Adverse Reaction (Intermediate, Verified 09/10/23 11:28) nausea tamsulosin Adverse Reaction (Intermediate, Uncoded 09/10/23 11:28) headache tramadol Adverse Reaction (Intermediate, Uncoded 09/10/23 11:28) nausea HPI HPI Comments History of Present Illness Details Franc is a 53-year-old male who presents today to the office for a follow-up. 09/10/2023-- The patient is a Latvian speaking male. 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 He is followed today for nephrolithiasis and BPH. He was last seen by me on 06/15/2023. Tamsulosin was prescribed. Patient states that he had developed headache while taking tamsulosin. Patient has had an episode of hematuria in the past. I have reviewed CT of the abdomen/pelvis without contrast from 03/11/2023 revealed no hydronephrosis or obstructing calculus bilaterally. PSA results reviewed ? 09/01/2023?2.98 ng/mL. Review of chart: Imaging: CT of the abdomen/pelvis without contrast from 03/11/2023 revealed no hydronephrosis or obstructing calculus bilaterally. X-ray of the KUB results from 02/26/2023 revealed No acute process seen.? S uboptimal visualization of kidneys. Radiopaque calculi are not visualized. Prior Tx: laser and stent about 5 years ago. 09/10/2023: Plan: I am going to change tamsulosin to alfusozin 10 mg. Follow-up in one year. [facility] Medical History Obesity (BMI 30-39.9) Anxiety Renal calculi Surgical History Hx of appendectomy (~1994) Hx laparoscopic cholecystectomy (~2007) Family History Father No problems noted. Mother No problems noted. Social History Alcohol intake: former Patient Tobacco Use Status: Never used Tobacco e-Cigarette/Vaping Use: Never Used Cognitive needs: No Hearing needs: No Vision needs: No Review of Systems Const All systems reviewed & are unremarkable except as noted in HPI and below Reports no additional complaints Eyes Reports no additional complaints ENT Reports no additional complaints Card Denies dyspnea Resp Denies cough and Denies dyspnea GI Reports no additional complaints Musc Reports no additional complaints Skin/Breast Denies rash and Denies unusual bruising Neuro Reports no additional complaints Psych Reports no additional complaints Endo Reports no additional complaints Jam/Lymph Reports no additional complaints Aller/Immun Reports no additional complaints Office Procedures Post Void Residual Post Residual Void Post Void Residual (PVR): 0 [id number] Void Residual by ultrasound Results AMB Urinalysis, Automated UA Leukoctes 0 Delores/uL Last Edit by PRUDENCE Jackson on 09/10/23 11:30 UA Nitrite Negative Last Edit by PRUDENCE Jackson on 09/10/23 11:30 UA Urobilinogen 0.2 mg/dL Last Edit by PRUDENCE Jackson on 09/10/23 11:3 0 UA Protein 15 mg/dL Last Edit by PRUDENCE Jackson on 09/10/23 11:30 UA pH 6.0 Last Edit by PRUDENCE Jackson on 09/10/23 11:30 UA Blood 0 John/uL Last Edit by PRUDENCE Jackson on 09/10/23 11:30 UA Specific House 1.030 Last Edit by PRUDENCE Jackson on 09/10/23 11: 30 UA Ketone Negative Last Edit by PRUDENCE Jackson on 09/10/23 11:30 UA Bilirubin 0 mg/dL Last Edit by PRUDENCE Jackson on 09/10/23 11:30 UA Glucose 0 mg/dL Last Edit by PRUDENCE Jackson on 09/10/23 11:30 Results Reviewed Results Reviewed: Laboratory Last Values Urine pH (Auto) 6.0 09/10/23 11:28 Specific House (Auto) 1.030 09/10/23 11:28 Urine Protein (Auto) 15 mg/dL 09/10/23 11:28 Glucose (UA)(Auto) 0 mg/dL 09/10/23 11:28 Urine Ketones (Auto) Negative 09/10/23 11:28 Urine Blood (Auto) 0 John/uL 09/10/23 11:28 Urine Nitrite (Auto) Negative 09/10/23 11:28 Urine Bilirubin (Auto) 0 mg/dL 09/10/23 11:28 Urine Urobilinogen (Auto) 0.2 mg/dL 09/10/23 11:28 Leukocyte Esterase (Auto) 0 Delores/uL 09/10/23 11:28 Assessment & Plan Assessment & Plan (1) History of kidney stones: Code(s): Z87.442 - Personal history of urinary calculi (2) Screening PSA (prostate specific antigen): Code(s): Z12.5 - Encounter for screening for malignant neoplasm of prostate (3) BPH loc w urin obs/LUTS: Code(s): N40.1 - Benign prostatic hyperplasia with lower urinary tract symptoms Plan I am going to change tamsulosin to alfusozin 10 mg. Follow-up in one year. Orders: Orders AMB Urinalysis Automated 09/10/23 Z13.9 - Encounter for screening, unspecified AMB Post Void Residual by ultrasound 09/10/23 N39.8 - Other specified disorders of urinary system Medications: New alfuzosin ER administer after the same meal each day 10 mg PO DAILY 90 tabs 3RF Patient Instructions: The patient had an opportunity to ask questions regarding treatment plan. All questions were answered. Imaging, Laboratory studies and physical exam results were discussed and reviewed in detail. No major barriers to understanding were identified. The patient expressed understanding and agreement with the above treatment plan. The patient is aware they should contact our office by phone for worsening of their current condition or the appearance of new symptoms. Compliance is encouraged with any medications and followup testing that is ordered. It is a privilege to be allowed the opportunity to participate in the urologic care of your patient. If you have any questions or concerns regarding treatment for the above conditions please do not hesitate to contact me. The office telephone contact is [phone]. This note is constructed in part using voice recognition software. While every effort has been made to ensure accuracy thermostat machine tender errors may have been included. Yours sincerely, Hussain Cardenas MD Coding Level of Care Code Est Pt Level 4 (46692) Diagnoses History of kidney stones Z87.442 Screening PSA (prostate specific antigen) Z12.5 BPH loc w urin obs/LUTS N40.1 CPT Codes Post Residual Void - PVR CPT Code: 40959-Musu Void Residual by ultrasound ([id number])
== END 2023-09-10 11:53 | disposition home or self-care (01) ==
PROVIDERS: PCP Internal Medicine; Visit Provider Urology
DX: Z87.442 Personal history of urinary calculi (principal); Z12.5 Encounter for screening for malignant neoplasm of prostate; N40.1 Benign prostatic hyperplasia with lower urinary tract symptoms
CPT/HCPCS: 99214

== ENCOUNTER → 2023-09-10 10:40 | Outpatient (BNVA) | payer OTHER, SELFPAY | PROVIDERS: PCP Internal Medicine; Visit Provider Urology | DX: Z12.5 Encounter for screening for malignant neoplasm of prostate (principal); N40.1 Benign prostatic hyperplasia with lower urinary tract symptoms; Z87.442 Personal history of urinary calculi | CPT/HCPCS: 51798; 81003; 99212 ==

== ENCOUNTER 2023-10-27 05:15 | Emergency (ER) | payer OTHER, SELFPAY ==
[2023-10-27 05:24] VITALS: BP 100/64; PULSE 71; O2SAT 97; BMI 34.0
[2023-10-27 05:29] VITALS: BP 113/57; PULSE 80; RESP 18; TEMP 37; O2SAT 98
[2023-10-27 05:40] LABS: Basophils Percent Auto 0.8 % (0-2); Eosinophils Absolute Auto 0.2 X10*3/uL (0.0-0.4); Eosinophils Percent Auto 4.3 % (0-4); Hematocrit 44.3 % (42.0-52.0); Hemoglobin 15.1 g/dl (14.0-18.0); Imm Gran Abs Auto 0.02 X10*3/uL (0.00-0.03); Imm Gran Pct Auto 0.4 % (0.0-0.4); Lymphocytes Absolute Auto 1.1 X10*3/uL (1.2-4.9); Lymphocytes Percent Auto 22.5 % (20-40); MANUAL DIFF FLAG NO; Mean Corpuscular HGB Conc 34.1 g/dl (31.0-36.0); Mean Platelet Volume 9.7 fL (9.4-12.4); Monocytes Absolute Auto 0.4 X10*3/uL (0.1-1.2); Monocytes Percent Auto 7.4 % (2-11); Neutrophils Absolute Auto 3.2 x10*3/uL (2.0-8.3); Neutrophils Percent Auto 64.6 % (45-73); Platelet Count 151 X10*3/uL (160-400); Red Blood Count 4.87 X10*6/uL (4.60-5.80); Red Cell Distribution Width 11.3 % (11.0-16.0); White Blood Count 4.9 X10*3/uL (4.8-10.8)
[2023-10-27 05:56] LABS: Alanine Aminotransferase 80 U/L (0-40); Albumin Level 3.8 g/dL (3.5-5.0); Alkaline Phosphatase 75 U/L (39-117); Anion Gap 11 (12-20); Aspartate Amino Transferase 35 U/L (5-37); Bilirubin Total 0.6 mg/dL (0.0-1.0); Blood Urea Nitrogen 22 mg/dL (9-16); Calcium 8.8 mg/dL (8.4-10.2); Carbon Dioxide 25 mmol/L (22-29); Chloride 107 mmol/L (96-108); Creatinine Clr Calc Pharmacy 120.9; Estimated Glomerular Filt Rate > 60; Glucose Random 157 mg/dL (60-115); Lipase 13 U/L (8-78); Potassium 3.2 mmol/L (3.3-5.1); Sodium 140 mmol/L (135-145)
--- NOTE | 2023-10-27 07:09 | ED.ABDPAIN ---
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 Ate home nachos last night. Woke up at 4am with diffuse abdominal cramping then diarrhea and had intense pain and felt cold and chills. No travel or sick contacts. The pain has improved. He did drink some different tea. MD elicited complaint: abdominal pain Pertinent past history: none Onset (ago): hour(s) (few) Pain Consistency: colicky Location: diffuse Severity: moderate Quality: cramping Radiation: none Migration to: no migration Exacerbating factors: nothing Relieving factors: nothing Context: other (recent URI) Associated symptoms: chills and other (URI, sore throat) Treatments prior to arrival: other (zofran) Related Data Previous Rx's Medication Instructions Recorded acetaminophen 500 mg tablet 1,000 mg (2 x 500 mg) PO Q6H PRN 07/02/23 (Acetaminophen Extra Strength) pain #60 tabs ibuprofen 800 mg tablet 800 mg PO Q8H PRN pain #90 tabs 08/31/23 tizanidine 4 mg tablet 4 mg PO Q8H PRN low back pain 30 08/31/23 days #90 tabs alfuzosin 10 mg tablet,extended 10 mg PO DAILY #90 tabs 09/10/23 release 24 hr ondansetron 4 mg disintegrating 4 mg PO Q8H PRN nausea and 10/27/23 tablet vomiting #20 tabs Allergies Allergy/AdvReac Type Severity Reaction Status Date / Time sertraline AdvReac Intermediate nausea Verified 09/10/23 11:28 tamsulosin AdvReac Intermediate headache Uncoded 09/10/23 11:28 tramadol AdvReac Intermediate nausea Uncoded 09/10/23 11:28 Review of Systems Review of Systems Constitutional : No Weight loss, No Fever, pos Chills ENT/Mouth : pos sore throat, No Rhinorrhea Eyes: No Swelling, No Redness Cardiovascular : No Chest Pain, No SOB, NoEdema Respiratory : No Cough, No Sputum, No Wheezing Gastrointestinal : Positive Nausea, no Vomiting, positive Diarrhea, positive abdominal Pain, No Hematochezia, No Melena Genitourinary : No Dysuria, No Urinary Frequency, No Hematuria, No Urgency Musculoskeletal : No joint pain, No Myalgias, No Joint Swelling Skin : No Skin Lesions, No rash Neuro : No Weakness, No Numbness, No Dizziness, No Headache Psych : No Anxiety/Panic, No Depression All other systems reviewed and are negative. [facility] Past Medical History Attestation statement: The following information was validated with the patient. Source: old records reviewed Medical History Obesity (BMI 30-39.9) Anxiety Renal calculi Surgical History Hx of appendectomy (~1994) Hx laparoscopic cholecystectomy (~2007) Family History Family History Father No problems noted. Mother No problems noted. Social History Social History Alcohol intake: former Patient Tobacco Use Status: Never used Tobacco e-Cigarette/Vaping Use: Never Used Advance Directives: No Advance Directives Information Provided: Yes Cognitive needs: No Hearing needs: No Vision needs: No Physical Exam ED Vital Signs: Vital Signs - 24 hr 10/27/23 05:29 Temperature 98.6 F Pulse Rate 80 Respiratory Rate 18 Blood Pressure 113/57 L Pulse Oximetry 98 Oxygen Delivery Method Room Air BMI result Body Mass Index 34.0 Appearance: Alert. Oriented X3. No acute distress. Eyes: Pupils equal, round and reactive to light. ENT: Pharynx erythema with swelling uvula midline normal voice Neck: Normal inspection. Neck supple. CVS: Normal heart rate and rhythm. Pulses normal. Respiratory: No respiratory distress. Breath sounds normal. Abdomen: Soft and nontender. Skin: Skin warm and dry. Normal skin color. Normal skin turgor. Extremities: No lower extremity edema. No calf ttp Neuro: Oriented X 3. No motor deficit. No sensory deficit. Medical Decision Making Medical Decision Making MDM Narrative: 53 yo male with PMH of BPH, kidney stones, anxiety, back pain presents with URI symptoms for a few days then had an episode of abdominal cramping and diarrhea no travel or abx use - he has a benign exam now. Suspect viral syndrome with episode of cramping and diarrhea has no pain now no reported bloody stool to suggest colitis, no pain to suggest diverticulitis. He is not toxic appearing, well hydrated. Labs, fluids, toradol and viral panel/strep Differential Diagnosis Differential Diagnoses: The differential diagnosis associated with the presentation includes viral syndrome, food toxicity Admission/Observation Consideration of admission/observation: Escalation of care including admission/observation considered on his phone, K repleteted tolerating PO, no hypoxia LFTs at baseline, not toxic, no further diarrhea + RSV Lab Data MDM Lab Attestation statement: I reviewed the patient's lab results. 10/27/23 05:34 10/27/23 05:34 Labs: Lab Results 10/27/23 10/27/23 10/27/23 Range/Units 05:34 07:28 07:56 WBC 4.9 (4.8-10.8) X10*3/uL RBC 4.87 (4.60-5.80) X10*6/uL Hgb 15.1 (14.0-18.0) g/dl Hct 44.3 (42.0-52.0) % MCV 91.0 (80.0-98.0) fL MCH 31.0 (27.0-33.0) pg MCHC 34.1 (31.0-36.0) g/dl RDW 11.3 (11.0-16.0) % Plt Count 151 L D (160-400) X10*3/uL MPV 9.7 (9.4-12.4) fL Immature Gran % (Auto) 0.4 (0.0-0.4) % Neut % (Auto) 64.6 (45-73) % Lymph % (Auto) 22.5 (20-40) % [place] % (Auto) 7.4 (2-11) % Eos % (Auto) 4.3 H (0-4) % Baso % (Auto) 0.8 (0-2) % Lymph # (Auto) 1.1 L (1.2-4.9) X10*3/uL [place] # (Auto) 0.4 (0.1-1.2) X10*3/uL Eos # (Auto) 0.2 (0.0-0.4) X10*3/uL Baso # (Auto) 0.0 (0.0-0.2) X10*3/uL Abs Immat Gran (auto) 0.02 (0.00-0.03) X10*3/uL Absolute Neuts (auto) 3.2 (2.0-8.3) x10*3/uL Absolute Nucleated RBC 0.000 (0.0-0.012) X10*3/uL Nucleated RBC % (auto) 0.0 (0.0-0.2) /100WBC Sodium 140 (135-145) mmol/L Potassium 3.2 L (3.3-5.1) mmol/L Chloride 107 (96-108) mmol/L Carbon Dioxide 25 (22-29) mmol/L Anion Gap 11 L (12-20) BUN 22 H (9-16) mg/dL Creatinine 0.93 (0.5-1.4) mg/dL Estim Creat Clear Calc 120.9 Estimated GFR > 60 Random Glucose 157 H (60-115) mg/dL Calcium 8.8 D (8.4-10.2) mg/dL Magnesium 1.8 (1.6-2.6) mg/dL Total Bilirubin 0.6 (0.0-1.0) mg/dL AST 35 (5-37) U/L ALT 80 H (0-40) U/L Alkaline Phosphatase 75 (39-117) U/L Total Protein 7.0 (6.5-8.0) g/dL Albumin 3.8 (3.5-5.0) g/dL Lipase 13 (8-78) U/L Urine Color Yellow Urine Appearance Clear Urine pH 6.0 (5.0-9.0) Ur Specific [place] 1.025 (1.005-1.025) Urine Protein Negative (Neg-Trace) mg/dL Urine Glucose (UA) Negative (Negative) mg/dL Urine Ketones Negative (Negative) mg/dL Urine Blood Negative (Negative) Urine Nitrite Negative (Negative) Ur Leukocyte Esterase Negative (Negative) Influenza Type A (PCR) NEGATIVE (Negative) Influenza Type B (PCR) NEGATIVE (Negative) RSV RNA Qual (PCR) POSITIVE A (Negative) SARS-CoV-2 RNA (RT-PCR) NEGATIVE (Negative) S. pyogenes GrpA BJ Negative (Negative) Independent Historian Clinical information obtained from an independent historian. History obtained from or confirmed by: Spouse and EMS External Record Review External record reviewed: Inpatient record Prescription Management I considered prescription management with: Other Medications Administered Generic Name Dose Route Start Last Admin Trade Name Freq PRN Reason Stop Dose Admin Sodium Chloride 1,000 mls @ 999 mls/hr 10/27/23 07:30 10/27/23 07:35 Ns IV 10/27/23 08:30 999 mls/hr .[id number] MARTHA Administration Discontinued Medications Generic Name Dose Route Start Last Admin Trade Name Freq PRN Reason Stop Dose Admin Ketorolac Tromethamine 15 mg 10/27/23 07:26 10/27/23 07:34 Ketorolac Tromethamine 15 Mg/Ml Vial IVPUSH 10/27/23 07:27 15 mg ONCE ONE Administration Potassium Chloride 40 meq 10/27/23 07:08 10/27/23 07:24 Potassium Chloride Packet 20 Meq Packet PO 10/27/23 07:09 40 meq ONCE ONE Administration Discharge Plan Discharge Clinical Impression: Respiratory syncytial virus infection, Acute hypokalemia Diarrhea Qualifiers: Diarrhea type: presumed infectious Qualified Code(s): R19.7 - Diarrhea, unspecified Patient Disposition: Home, Self-Care Instructions: Respiratory Syncytial Virus (ED), Hypokalemia (ED), Acute Diarrhea (ED) Additional Instructions: stay hydrated, eat a bland diet nothing greasy, spicy or fatty. advance over 2 days as tolerated. you have RSV which is a virus this will get better over time it is contagious do not expose others including the old and young. return for worsening pain, fevers, chest pain, trouble breathing. mantente hidratado, lleva edwin dieta blanda nada grasosa, picante ni grasosa. avance stephanie 2 d?as seg?n la tolerancia. usted tiene RSV, que es un virus que mejorar? con el tiempo, es contagioso, no exponga a otros, incluidos los viejos y los j?venes. Regrese si el dolor empeora, fiebre, dolor en el pecho o dificultad para respirar. Prescriptions: New ondansetron 4 mg tablet,disintegrating 4 mg PO Q8H PRN (Reason: nausea and vomiting) Qty: 20 0RF No Action acetaminophen [Acetaminophen Extra Strength] 500 mg tablet 1,000 mg PO Q6H PRN (Reason: pain) Qty: 60 0RF ibuprofen 800 mg tablet 800 mg PO Q8H PRN (Reason: pain) Qty: 90 1RF Rx Instructions: Take with food tizanidine 4 mg tablet 4 mg PO Q8H PRN (Reason: low back pain) 30 Days Qty: 90 1RF alfuzosin 10 mg tablet extended release 24 hr 10 mg PO DAILY Qty: 90 3RF Rx Instructions: administer after the same meal each day Stand Alone Forms: Work/School Release Print Language: English
[2023-10-27] MEDS: Potassium Chloride Packet 20 MEQ PACKET 40 MEQ PO (07:24)
[2023-10-27] MEDS: Ketorolac Tromethamine 15 MG/ML VIAL IVPUSH (07:34)
[2023-10-27] MEDS: 0.9 % Sodium Chloride 1,000 ML 999 ML IV (07:35)
--- NOTE | 2023-10-27 07:38 | PC.NURSE ---
patient a&ox3, c/o 04/07 abd pain, labs previously drawn, swabs obtained, ivf hung per order, pt medicated for pain per order, family at bedside, call capone within reach, will continue to monitor.
[2023-10-27 07:47] LABS: Magnesium 1.8 mg/dL (1.6-2.6)
[2023-10-27 07:55] LABS: IDNOW Serial# 6674DD1D; Strep A Nucleic Acid Negative (Negative)
[2023-10-27 08:04] LABS: Appearance Urine Clear; Color Urine Yellow; Glucose Urine UA Negative (Negative); Leukocyte Esterase Urine Negative (Negative); Nitrite Urine Negative (Negative); Specific Gravity - Urine 1.025 (1.005-1.025); Urine Blood Negative (Negative); Urine Ketones Negative (Negative); Urine Protein Negative (Neg-Trace)
[2023-10-27 08:15] LABS: Influenza A PCR NEGATIVE (Negative); Influenza B PCR NEGATIVE (Negative); Resp Syncy Virus RNA Qual PCR POSITIVE (Negative); SARS COV2 PCR INHOUSE NEGATIVE (Negative)
== END 2023-10-27 09:00 | disposition home or self-care (01) ==
PROVIDERS: Emergency Provider Emergency Medicine
DX: J22 Unspecified acute lower respiratory infection (principal); B97.4 Respiratory syncytial virus as the cause of diseases classified elsewhere; E87.6 Hypokalemia; R19.7 Diarrhea, unspecified; R10.9 Unspecified abdominal pain; Z79.899 Other long term (current) drug therapy; Z20.822 Contact with and (suspected) exposure to COVID-19; Z20.828 Contact with and (suspected) exposure to other viral communicable diseases
CPT/HCPCS: 0241U; 36415; 80053; 81003; 83690; 83735; 85025; 87651; 96361; 96374; 99284; J1885

== ENCOUNTER 2023-12-10 15:19 | Outpatient (AMB) | payer OTHER, SELFPAY ==
--- NOTE | 2023-12-10 15:19 | A.OFFPC_ITS ---
Vital Signs 12/10/23 15:20 Height 5 ft 9 in Weight 252 lb BMI 37.2 BP 124/62 Blood Pressure Location Lt brachial Position Sitting Pulse 104 H Pulse Source Pulse Oximeter Pulse Oximetry (%) 96 Oxygen Delivery Method Room Air Intake Visit Reasons: follow up/colonoscopy order Golf Ball Molder Required: No Accompanied by: Self / Same As Patient Allergies sertraline Adverse Reaction (Intermediate, Verified 01/11/24 14:45) nausea tamsulosin Adverse Reaction (Intermediate, Uncoded 01/11/24 14:45) headache tramadol Adverse Reaction (Intermediate, Uncoded 01/11/24 14:45) nausea Medication List - Last Reconciled 12/10/23 by Codey Raygoza MD acetaminophen (Acetaminophen Extra Strength) 1,000 mg (2 x 500 mg) PO Q6H PRN alfuzosin ER 10 mg PO DAILY ibuprofen 800 mg PO Q8H PRN ondansetron 4 mg PO Q8H PRN tizanidine 4 mg PO Q8H PRN 30 days tramadol 50 mg PO BID PRN Tobacco use date assessed: 12/10/23 Dental Screening Dental Screen Date: 12/10/23 Did you have a dental visit in the last 12 months?: Yes Did you have a dental problem in the last 6 months where you did not have access to dental care?: No Was dental information given to patient?: Patient has dentist HPI follow up/colonoscopy order HPI Details Patient comes in today for his follow up visit States that he got sick back in September 2023 and could not keep his initial intake appointment with GI back then for his colonoscopy and would like to know if he needs to get a new referral Is again requesting to have a repeat EGD done together with his colonoscopy when it is scheduled Relates that he has also been experiencing increased pain over his lower back lately and that Ibuprofen has not been helping him and is requesting Rx for some Tramadol at this time He denies any headaches or dizziness Denies any chest pains, no SOB No nausea/vomiting, no abdominal pain No change in bowel habits noted He is also requesting for a referral to psychiatry for counseling and therapy due to increasing stress and anxiety [facility] Medical History Obesity (BMI 30-39.9) Anxiety Renal calculi Surgical History Hx of appendectomy (~1994) Hx laparoscopic cholecystectomy (~2007) Family History Father No problems noted. Mother No problems noted. Social History Housing: Apartment Alcohol intake: former Patient Tobacco Use Status: Never used Tobacco e-Cigarette/Vaping Use: Never Used Second Hand Smoke Exposure: No service: No Current occupational status: employed Current occupational exposures/hazards: No Cognitive needs: No Hearing needs: No Vision needs: No Questionnaire PHQ-9 Over the last 2 weeks, how often have you been bothered by any of the following problems? 1. Little interest or pleasure in doing things: not at all 2. Feeling down, depressed, or hopeless: several days 3. Trouble falling or staying asleep, or sleeping too much: not at all 4. Feeling tired or having little energy: not at all 5. Poor appetite or overeating: not at all 6. Feeling bad about yourself - or that you are a failure or have let yourself or your family down: not at all 7. Trouble concentrating on things, such as reading the newspaper or watching television: not at all 8. Moving or speaking so slowly that other people could have noticed. Or the opposite - being so fidgety or restless that you have been moving around a lot more than usual: not at all 9. Thoughts that you would be better off or of hurting yourself in some way: not at all Total score: 1 Depression Screening Interpretation: Negative Depression Screening Done: Yes 41970 - PHQ-9 Billing: Yes Source: Developed by Drs. Cj Stahl, Lexie Clemens, Primo Albert and colleagues, with an educational flaco from [employer]. Thrive Questionnaire Date Thrive assessed: 12/10/23 I am a: Patient What is your living situation today?: I have a steady place to live Within the past 12 months, did the food you bought not last and you didn't have the money to get more?: Never true Within the past 12 months, did you worry whether your food would run out before you got money to buy more?: Never true Do you have trouble paying for medicines?: No Do you have trouble getting transportation to medical appointments?: No Do you have trouble paying your heating and electricity bill?: No Do you have trouble taking care of your child, family member or friend?: No Do you have trouble with day-to-day activities such as bathing, preparing meals, shopping, managing finances, etc.?: No Are you currently unemployed and looking for a job?: No Are you interested in more education?: No Please select the resources that you would like help with: None Currently or been in a relationship where the following occur: no concerns reported THRIVE Score: 0 AUDIT C Alcohol Use Questionnaire (AUDIT-C) 1. How often do you have a drink containing alcohol?: Never Total Score: 0 Score Reviewed/Action Taken: Yes DANNY-7 AMB Questionnaire DANNY-7 Date DANNY - 7 assessed: 12/10/23 Feeling nervous, anxious, or on edge: 2 = More than half the days Not being able to stop or control worryin = Several days Worrying too much about different things: 1 = Several days Trouble relaxin = Not at all Being so restless that it is hard to sit still: 0 = Not at all Becoming easily annoyed or irritable: 0 = Not at all Feeling afraid as if something awful might happen: 0 = Not at all Total DANNY-7 score (0-4 normal; 5-9 mild; 10-14 moderate; 15-21 severe): 4 Source: Developed by Drs. Cj Stahl, Lexie Clemens, Primo Albert and colleagues, with an educational flaco from [employer]. Review of Systems Const Denies chills, Reports fatigue, Denies fever(s) and Denies headache(s) ENT Denies dysphagia, Denies dizziness, Denies otalgia, Denies headache(s), Denies neck pain, Denies odynophagia and Denies sore throat Card Denies chest pain, Denies palpitations and Denies dyspnea Resp Denies cough and Denies dyspnea GI Denies abdominal pain, Denies constipation, Denies dysphagia, Denies heartburn, Denies diarrhea, Denies nausea, Denies odynophagia and Denies vomiting Denies dysuria, Denies nocturia and Denies urinary frequency Musc Reports back pain (increasing) and Denies neck pain Neuro Denies dizziness and Denies headache(s) Psych Reports anxiety (increasing lately) and Denies depression Endo Reports fatigue and Denies palpitations Physical exam (Primary Care) Vital Signs: Last Vital Signs Pulse 104 H 12/10/23 15:20 BP 124/62 12/10/23 15:20 Pulse Ox 96 12/10/23 15:20 Oxygen Delivery Method Room Air 12/10/23 15:20 BMI result Body Mass Index 37.2 Tobacco/Smoking Status: Tobacco use Status Tobacco use date assessed 12/10/23 12/10/23 15:27 Patient Tobacco Use Status Never used Tobacco 12/10/23 15:27 e-Cigarette/Vaping Use Never Used 12/10/23 15:27 PHQ-9: PHQ-9 Score PHQ-9: Total score 1 12/10/23 15:53 Depression Screening Interpretation: Negative Thrive Assessment: Date of Thrive Assessment Date Thrive assessed 12/10/23 12/10/23 15:27 Currently or been in a relationship where the following occur: no concerns reported Const General: no acute distress and alert HENMT Throat: Yes posterior oropharynx normal and Yes tonsils normal (no TP congestion) Neck Neck: Yes no lymphadenopathy and Yes supple Thyroid: Thyroid normal Resp Auscultation: clear to auscultation bilaterally, no rales and no wheezes Cardio Rate: regular rate Rhythm: regular rhythm Heart sounds: no murmurs GI Palpation (GI): Soft to palpation and nontender Auscultation: normal bowel sounds General: Yes no CVA tenderness Back/Spine/Pelvis Back: no CVA tenderness Thoracic/Lumbar Spine: lumbar spinal tenderness (increased) Skin Rashes: no rashes Extrem General: Yes no clubbing, cyanosis or edema Assessment and Plan Assessment & Plan (1) Low back pain: Code(s): M54.50 - Low back pain, unspecified Qualifiers: Chronicity: chronic Back pain laterality: midline Sciatica presence: unspecified whether sciatica present Qualified Code(s): M54.50 - Low back pain, unspecified; G89.29 - Other chronic pain Plan: Reinforced activity and weight-lifting restrictions Spine x-rays done back in August 2023 revealed (+) facet arthritis in the lower lumbar spine as well as mild multilevel lumbar spondylosis There are also multilevel degenerative changes with flowing anterior osteophytes in the mid to lower thoracic spine He is currently on Ibuprofen 800 mg TID PRN and Tizanidine 4 mg TID PRN but states that both Rx have not been helping much and he is requesting for Rx for some Tramadol again Will go ahead and start him back on Tramadol 50 mg BID PRN for increased pain Have also discussed with patient the option of starting Gabapentin for chronic pain - thinks that he may have taken this in the past and it did not help and would like to hold off on this for now Have also discussed option of referring him to pain management if his low back pain continues to be an issue (2) Renal calculi: Comment: right side Code(s): N20.0 - Calculus of kidney Plan: His KUB and abdominal/pelvic CT done back in February 2023 revealed NO renal stones although 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 Follow up with urology as scheduled (3) Anxiety: Code(s): F41.9 - Anxiety disorder, unspecified Plan: He could not tolerate Sertraline (50 mg QD) in the past due to side effects and does not want any other Rx at this time Per request, will refer him to psychiatry for further evaluation and management (4) Obesity (BMI 30-39.9): Code(s): E66.9 - Obesity, unspecified Plan: Reinforced diet/lose weight; exercise is currently impractical due to his increasing back pain Plan Follow up as scheduled next month Orders: Referrals Psychiatry Referral F41.9 - Anxiety disorder, unspecified Medications: Changed From tramadol Take only as needed for severe pain - due to kidney stones 50 mg PO BID 7 days PRN 14 tabs 0RF severe pain To tramadol Take only as needed for severe pain 50 mg PO BID PRN 30 tabs 0RF severe pain Coding Level of Care Code Est Pt Level 4 (80804) Diagnoses Chronic midline low back pain, unspecified whether sciatica present M54.50; G89.29 Chronicity: chronic Back pain laterality: midline Sciatica presence: unspecified whether sciatica present Renal calculi N20.0 Anxiety F41.9 Obesity (BMI 30-39.9) E66.9
[2023-12-10 15:20] VITALS: BP 124/62; PULSE 104; O2SAT 96; BMI 37.2
== END 2023-12-10 16:03 | disposition home or self-care (01) ==
PROVIDERS: Visit Provider Internal Medicine
DX: M54.50 Low back pain, unspecified (principal); E66.9 Obesity, unspecified; Z68.37 Body mass index [BMI] 37.0-37.9, adult; G89.29 Other chronic pain; N20.0 Calculus of kidney; F41.9 Anxiety disorder, unspecified
CPT/HCPCS: 99214

== ENCOUNTER 2024-01-11 14:05 | Outpatient (AMB) | payer OTHER, SELFPAY ==
--- NOTE | 2024-01-11 14:06 | MHC.PC.OV ---
Vital Signs 01/11/24 14:08 Height 5 ft 9 in Weight 248 lb BMI 36.6 BP 130/68 Blood Pressure Location Lt brachial Position Sitting Pulse 86 Pulse Source Pulse Oximeter Pulse Oximetry (%) 96 Oxygen Delivery Method Room Air Intake Visit Reasons: 4 month f/u Intake Note: Patient is here to follow up on Obesity, Anxiety, Back pain. Complaint of pain in both ears radiates down the jaw to the back of the neck and down the back, ongoing for three days. OTC did not help. Storage Garage Attendant Required: Yes Storage Garage Attendant Language: Pipe Setter Name: Radha Soto ([id number]) Information Interpreted: non-clinical & clinical Antique Jewelry Repairer: Not Required per policy Accompanied by: Self / Same As Patient Allergies sertraline Adverse Reaction (Intermediate, Verified 01/11/24 14:45) nausea tamsulosin Adverse Reaction (Intermediate, Uncoded 01/11/24 14:45) headache tramadol Adverse Reaction (Intermediate, Uncoded 01/11/24 14:45) nausea Medication List - Last Reconciled 01/11/24 by Codey Raygoza MD acetaminophen (Acetaminophen Extra Strength) 1,000 mg (2 x 500 mg) PO Q6H PRN alfuzosin ER 10 mg PO DAILY ibuprofen 800 mg PO Q8H PRN ondansetron 4 mg PO Q8H PRN tizanidine 4 mg PO Q8H PRN 30 days tramadol 50 mg PO BID PRN Tobacco use date assessed: 01/11/24 Dental Screening Dental Screen Date: 01/11/24 Did you have a dental visit in the last 12 months?: Yes Did you have a dental problem in the last 6 months where you did not have access to dental care?: No Was dental information given to patient?: Patient has dentist HPI 4 month f/u HPI Details Patient comes in today for his follow up visit States that he is still experiencing increased pain over his back (both upper and lower) as well as over the back of his neck Has been taking his Ibuprofen 800 mg 3 times a day for the past few days with little relief Would like to request for Rx for some oral prednisone, which he recalls has helped in the past with his joint pains He is not able to tolerate Tramadol in the past and is requesting for something stronger for his pain He had x-rays of his back done back in August 2023 and would like to know how his x-rays came out Relates that he has also been experiencing increased sore throat and bilateral ear pain for the past few days He denies any fever, headaches or dizziness Denies any chest pains, no SOB No nausea/vomiting, no abdominal pain No change in bowel habits noted PFS Medical History Obesity (BMI 30-39.9) Anxiety Renal calculi Surgical History Hx of appendectomy (~1994) Hx laparoscopic cholecystectomy (~2007) Family History Father No problems noted. Mother No problems noted. Social History Housing: Apartment Alcohol intake: former Patient Tobacco Use Status: Never used Tobacco e-Cigarette/Vaping Use: Never Used Second Hand Smoke Exposure: No service: No Current occupational status: employed Current occupational exposures/hazards: No Cognitive needs: No Hearing needs: No Vision needs: No Questionnaire PHQ-9 Over the last 2 weeks, how often have you been bothered by any of the following problems? Depression Screening Interpretation: Negative Depression Screening Done: Yes Source: Developed by Drs. Cj Stahl, Primo Park and colleagues, with an educational flaco from [employer]. Thrive Questionnaire Date Thrive assessed: 12/10/23 Currently or been in a relationship where the following occur: no concerns reported THRIVE Score: 0 DANNY-7 AMB Questionnaire DANNY-7 Date DANNY - 7 assessed: 12/10/23 Source: Developed by Drs. Cj Stahl, [place] and colleagues, with an educational flaco from [employer]. Review of Systems Const Denies chills, Reports fatigue, Denies fever(s) and Denies headache(s) ENT Denies dysphagia, Denies dizziness, Reports otalgia (bilateral), Denies headache(s), Reports nasal congestion (on and off), Denies neck pain, Denies odynophagia and Reports sore throat Card Denies chest pain, Denies palpitations and Denies dyspnea Resp Denies chest congestion, Reports cough (on and off), Denies dyspnea and Denies wheezing GI Denies abdominal pain, Denies constipation, Denies dysphagia, Denies heartburn, Denies diarrhea, Denies nausea, Denies odynophagia and Denies vomiting Denies dysuria, Denies nocturia and Denies urinary frequency Musc Reports back pain (increasing), Denies neck pain and Denies radiating pain into limb Skin/Breast Denies rash Neuro Denies dizziness and Denies headache(s) Endo Reports fatigue and Denies palpitations Aller/Immun Denies wheezing Physical exam (Primary Care) Vital Signs: Last Vital Signs Pulse 86 01/11/24 14:08 BP 130/68 01/11/24 14:08 Pulse Ox 96 01/11/24 14:08 Oxygen Delivery Method Room Air 01/11/24 14:08 BMI result Body Mass Index 36.6 Tobacco/Smoking Status: Tobacco use Status Tobacco use date assessed 01/11/24 01/11/24 14:24 Patient Tobacco Use Status Never used Tobacco 01/11/24 14:08 e-Cigarette/Vaping Use Never Used 01/11/24 14:08 Depression Screening Interpretation: Negative Thrive Assessment: Date of Thrive Assessment Date Thrive assessed 12/10/23 01/11/24 14:08 Currently or been in a relationship where the following occur: no concerns reported Const General: no acute distress and alert HENMT Ears: TM's normal bilaterally and EAC's normal Throat: Yes tonsils normal (no TP congestion) and Yes posterior oropharynx abnormal ((+) erythema of the posterior pharynx) Neck Neck: Yes no lymphadenopathy and Yes supple Resp Auscultation: clear to auscultation bilaterally, no rales and no wheezes Cardio Rate: regular rate Rhythm: regular rhythm Heart sounds: no murmurs GI Palpation (GI): Soft to palpation and nontender Auscultation: normal bowel sounds General: Yes no CVA tenderness Back/Spine/Pelvis Back: no CVA tenderness Thoracic/Lumbar Spine: lumbar spinal tenderness Skin Rashes: no rashes Extrem General: Yes no clubbing, cyanosis or edema Assessment and Plan Assessment & Plan (1) Low back pain: Code(s): M54.50 - Low back pain, unspecified Qualifiers: Chronicity: chronic Back pain laterality: midline Sciatica presence: unspecified whether sciatica present Qualified Code(s): M54.50 - Low back pain, unspecified; G89.29 - Other chronic pain Plan: Reinforced activity and weight-lifting restrictions Spine x-rays done back in August 2023 revealed (+) facet arthritis in the lower lumbar spine as well as mild multilevel lumbar spondylosis There are also multilevel degenerative changes with flowing anterior osteophytes in the mid to lower thoracic spine He is currently on Tramadol 50 mg TID PRN, Ibuprofen 800 mg TID PRN and Tizanidine 4 mg TID PRN but states that Tramadol and Ibuprofen have not helped much lately and he is requesting for a short-term prednisone Rx to help relieve his pain at present - will give him Rx for Prednisone 10 mg to take only as needed for severe pain Have also discussed with patient about the option of starting him on Gabapentin for potentially better pain control - states that he would like to hold off on that for now as he thinks that he may have taken this in the past and it did not help Will go ahead then and refer him to pain management for further evaluation and consideration for interventional Tx (2) Upper respiratory tract infection: Code(s): J06.9 - Acute upper respiratory infection, unspecified Qualifiers: URI type: unspecified URI Qualified Code(s): J06.9 - Acute upper respiratory infection, unspecified Plan: Will go ahead and start him empirically on Amoxicillin 500 mg Q 8 hours x 7 days (3) Renal calculi: Comment: right side Code(s): N20.0 - Calculus of kidney Plan: His KUB and abdominal/pelvic CT done back in February 2023 revealed NO renal stones although 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 Follow up with urology as scheduled (4) Anxiety: Code(s): F41.9 - Anxiety disorder, unspecified Plan: Continue Lorazepam 1 mg Q HS PRN He could not tolerate Sertraline (50 mg QD) due to side effects (5) Obesity (BMI 30-39.9): Code(s): E66.9 - Obesity, unspecified Plan: Reinforced diet/lose weight; exercise is currently impractical due to his increasing back pain Plan Follow up in 4 months Orders: Referrals Pain Management Referral M54.50 - Low back pain, unspecified Medications: New amoxicillin 500 mg PO Q8H 7 days 21 caps 0RF prednisone take as needed only for severe joint pain or swelling 10 mg PO DAILY 10 days PRN 10 tabs 0RF joint pain Coding Level of Care Code Est Pt Level 3 (51348) Diagnoses Chronic midline low back pain, unspecified whether sciatica present M54.50; G89.29 Chronicity: chronic Back pain laterality: midline Sciatica presence: unspecified whether sciatica present Upper respiratory tract infection, unspecified type J06.9 URI type: unspecified URI Renal calculi N20.0 Anxiety F41.9 Obesity (BMI 30-39.9) E66.9
[2024-01-11 14:08] VITALS: BP 130/68; PULSE 86; O2SAT 96; BMI 36.6
== END 2024-01-11 15:01 | disposition home or self-care (01) ==
PROVIDERS: PCP Internal Medicine; Visit Provider Internal Medicine
DX: M54.50 Low back pain, unspecified (principal); G89.29 Other chronic pain; E66.9 Obesity, unspecified; Z68.37 Body mass index [BMI] 37.0-37.9, adult; J06.9 Acute upper respiratory infection, unspecified; N20.0 Calculus of kidney; F41.9 Anxiety disorder, unspecified
CPT/HCPCS: 99213

== ENCOUNTER 2024-01-25 09:39 | Outpatient (AMB) | payer OTHER, SELFPAY ==
[2024-01-25 09:43] VITALS: BP 101/62; PULSE 92; RESP 12; O2SAT 93; BMI 36.2
--- NOTE | 2024-01-25 09:43 | A.OFFVIS_ITS ---
Intake Vital Signs 01/25/24 09:43 Height 5 ft 9 in Weight 245 lb BMI 36.2 BP 101/62 Blood Pressure Location Lt brachial Position Sitting Respiration 12 Pulse 92 Pulse Source Pulse Oximeter Pulse Oximetry (%) 93 Oxygen Delivery Method Room Air Intake Visit Reasons: Low back pain Cook House Supervisor Required: Yes Cook House Supervisor Name: [id number] Kendal Allergies sertraline Adverse Reaction (Intermediate, Verified 01/25/24 09:45) nausea tamsulosin Adverse Reaction (Intermediate, Uncoded 01/25/24 09:45) headache tramadol Adverse Reaction (Intermediate, Uncoded 01/25/24 09:45) nausea Medication List - Last Reconciled 01/25/24 by Narcisa Hood LPN ibuprofen 800 mg PO Q8H PRN tramadol 50 mg PO BID PRN HPI Low back pain HPI Details 53-year-old male who presents today to t he office for an evaluation of low back pain. A certified network/telecom engineer was present during the visit. His pain started about five years ago. He has been experiencing increased pain over his back (both upper and lower) as well as over the back of his neck. His pain occasionally radiates up to his ribs and down to his leg. He is unable to sleep on his sides. Has been taking his ibuprofen 800 mg 3 times a day with minimal relief. He is not able to tolerate Tramadol in the past. He had x-rays of his back in August 2023. He works in [employer]. He has good mattresses and pillow support while sleeping at night.?He has not done PT yet. COUNTS INCLUDE 234 BEDS AT THE [facility] Medical History Obesity (BMI 30-39.9) Anxiety Renal calculi Surgical History Hx of appendectomy (~1994) Hx laparoscopic cholecystectomy (~2007) Family History Father No problems noted. Mother No problems noted. Social History Housing: Apartment Alcohol intake: former Patient Tobacco Use Status: Never used Tobacco e-Cigarette/Vaping Use: Never Used Second Hand Smoke Exposure: No service: No Current occupational status: employed Current occupational exposures/hazards: No Cognitive needs: No Hearing needs: No Vision needs: No Review of Systems Const All systems reviewed & are unremarkable except as noted in HPI and below Physical Exam Vital Signs: Last Vital Signs Pulse 92 01/25/24 09:43 Resp 12 01/25/24 09:43 BP 101/62 01/25/24 09:43 Pulse Ox 93 01/25/24 09:43 Oxygen Delivery Method Room Air 01/25/24 09:43 BMI result Body Mass Index 36.2 General: Appears afebrile. Alert and oriented. Mood and affect appropriate. Follows and participates in conversation appropriately. Respiratory effort is unlabored. Able to transition from sit to stand unassisted. Ambulates with bilaterally normal heel strike and toe off. There is tenderness in the right lumbar region. Lumbar ROM is limited. Results Reviewed Results Reviewed: 09/01/2023: XR LUMBAR SPINE, XR THORACIC SPINE FINDINGS: LUMBAR SPINE: Surgical samantha in the right upper quadrant. Mild rightward curvature of the lumbar spine. Facet arthritis in the lower lumbar spine. Mild multilevel lumbar spondylosis. THORACIC SPINE: Degenerative changes on very limited images of the lower cervical spine. Multilevel degenerative changes with flowing anterior osteophytes in the [id number] thoracic spine. Thoracic vertebral body heights are preserved. Visualization of the upper thoracic spine is due to overlying bone and soft tissues. IMPRESSION: 1. Facet arthritis in the lower lumbar spine. 2. Mild multilevel lumbar spondylosis. 3. Degenerative changes on very limited images of the lower cervical spine. Dedicated views of the cervical spine should be considered for further evaluation. 4. Multilevel degenerative changes with flowing anterior osteophytes in the mid to lower thoracic spine. Visualization of the upper thoracic spine is due to overlying bone and soft tissues. CT scan could be considered for further evaluation if there is clinical is concern for fracture or other pathology. CT scan abdomen/pelvis shows bridging osteophytes in the thoraco-lumbar region in between vertebral segments more apparent from the right side. Assessment & Plan Assessment & Plan (1) Lumbar back sprain: Code(s): S33.5XXA - Sprain of ligaments of lumbar spine, initial encounter (2) Lumbar spondylosis: Code(s): M47.816 - Spondylosis without myelopathy or radiculopathy, lumbar region Plan A referral was provided to physical therapy for three months for lumbar spondylosis and lumbar muscle sprain. The patient will receive a call to schedule an appointment. If his pain continues to persist after three months, we will get an MRI scan, and we can consider potential interventional program. Scribed for Dr. Espino by Brannon Armas, medical office professional instructor, on 01/25/2024. I, Dr. Deshaun lindsey, have personally reviewed and agree with the information entered by the scribe. Orders: Orders PT Evaluation and Treatment 01/25/24 S33.5XXA - Sprain of ligaments of lumbar spine, initial encounter, M47.816 - Spondylosis without myelopathy or radiculopathy, lumbar region Coding Level of Care Code New Pt Level 3 (67603) Diagnoses Lumbar back sprain S33.5XXA Lumbar spondylosis M47.816
== END 2024-01-25 10:16 | disposition home or self-care (01) ==
PROVIDERS: PCP Internal Medicine; Referring Provider Internal Medicine; Visit Provider Internal Medicine
DX: S33.5XXA Sprain of ligaments of lumbar spine, initial encounter (principal); M47.816 Spondylosis without myelopathy or radiculopathy, lumbar region
CPT/HCPCS: 99203

== ENCOUNTER → 2024-01-25 09:39 | Outpatient (BNVA) | payer OTHER, SELFPAY | PROVIDERS: PCP Internal Medicine; Referring Provider Internal Medicine; Visit Provider Internal Medicine | DX: S33.5XXA Sprain of ligaments of lumbar spine, initial encounter (principal); M47.816 Spondylosis without myelopathy or radiculopathy, lumbar region; X58.XXXA Exposure to other specified factors, initial encounter; Y93.9 Activity, unspecified; Y92.9 Unspecified place or not applicable; Y99.9 Unspecified external cause status | CPT/HCPCS: 99202 ==

== ENCOUNTER 2024-03-07 09:00 | Outpatient (RCR) | payer OTHER, SELFPAY ==
--- NOTE | 2024-02-28 12:27 | MHC.PT.EP ---
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 THE Pt HAS NILO THORACOLUMB PS TIGHTNESS, INTERM Rt LE RADIC SXS TO Rt ANKLE- HE HAS SIGNIF TISSUE TIGHTNESS IN HIS LB AND PROX LEs- HE COMPENSATES FOR TIGHTNESS BY INCR USE OF TRUNK FLEXION. THE Pt'S SENSATION IS INTACT AND HE DENIES BOWEL/BLADDER SIGNS AND SXS. HE WOULD BENEFIT FROM PT TO DEV A HEP/ FITNESS ROUTINE, DECR PAIN, AND IMPROVE HIS BODY MECH W WORK SIMUL. Frequency and Duration: The patient will be seen 2x WK x 5 WKS Short Term Goals: *DCER LBP TO 2-3/10 AND Rt LE SXS DECR BY 75% *INITIATE HEP *Pt INDEP W POSTURAL SELF CORRECTION *Pt DEMON WFL FUNCTIONAL SQUAT Assisted Goals: *INDEP W HEP AND SELF SX MGMT TECHN-> WFL HIP FLEXIB, WFL TRUNK AROM *Pt DEMON PROPER BODY MECH W 3:3 SIMUL WORK TASKS *IMPROVED ACTIVITY CAMPOS EVIDENT W IMPROVED OSWESTRY (AT EVAL /50) Treatment Plan: Modalities to reduce pain, spasms and effusion. Manual therapy to restore motion and function. Therapeutic exercise to improve strength and flexibility. Neuromuscular re-education for posture and balance. Therapeutic activities to return to functional activities of daily living. Electronically signed by: MARY ANNE JARRELL,PT Please sign and return to therapist. Thank you for your referral.
--- NOTE | 2024-03-31 15:20 | MHC.PT.DC ---
[facility] [place] Office [place] Office [place] Office [address] Tawanda Thompson 140 [facility] [phone] F: [phone] F: [phone] F: [phone] F: [phone] Physical Therapy Discharge Report Diagnosis: LUMBAR SPONDYLOSIS, LBP Date of Surgery: Date of Evaluation: 02/28/24 Date of Discharge: 03/31/24 Treatments to Date: 2 Cancellations to Date: 2 No Shows to Date: 4 Discharge Status: Visit Non-compliance Discharge Summary: SREE IS DISCHARGED THIS DATE FROM PT DUE TO POOR ATTENDANCE WITH SCHED PT APPTS- WE HAVE SPOKEN W HIM AND PROVIDED HIM W FLEXIBILITY IN REGARDS TO OUR NO SHOW / ATTENDANCE POLICY AND THE Pt CONT TO HAVE POOR ATTENDANCE- HE IS DISCHARGED THIS DATE FROM PT- HE DID NOT MEET HIS PT GOALS. Electronically signed by: MARY ANNE JARRELL, PT Please sign and return to therapist. Thank you for your referral.
== END 2024-03-31 15:19 | disposition home or self-care (01) ==
LOC: HO.PT 09:00
PROVIDERS: PCP Internal Medicine; Visit Provider Internal Medicine
DX: S33.5XXA Sprain of ligaments of lumbar spine, initial encounter (principal); M47.816 Spondylosis without myelopathy or radiculopathy, lumbar region
CPT/HCPCS: 97110; 97162; 97535

== ENCOUNTER 2024-04-25 09:36 | Outpatient (AMB) | payer OTHER, SELFPAY ==
--- NOTE | 2024-04-25 09:37 | MHC.OFFVIS ---
Vital Signs 04/25/24 09:40 Height 5 ft 9 in Weight 245 lb BMI 36.2 BP 110/60 Blood Pressure Location Rt brachial Position Sitting Respiration 14 Pulse 86 Pulse Source Pulse Oximeter Pulse Oximetry (%) 93 Oxygen Delivery Method Room Air Intake Visit Reasons: low back pain Drafting Teacher Required: Yes Drafting Teacher Name: Carolina Allergies sertraline Adverse Reaction (Intermediate, Verified 04/25/24 09:41) nausea tamsulosin Adverse Reaction (Intermediate, Uncoded 04/25/24 09:41) headache tramadol Adverse Reaction (Intermediate, Uncoded 04/25/24 09:41) nausea Medication List - Last Reconciled 04/25/24 by Narcisa Hood LPN ibuprofen 800 mg PO Q8H PRN prednisone 10 mg PO DAILY PRN 10 days tramadol 50 mg PO BID PRN HPI HPI low back pain : Details: 53-year-old male who presents today to the office for low back pain. He reports right-sided back pain. He rates his pain level at 3/10 in intensity. He has done only three sessions of physical therapy and discontinued it as he did not find any relief. He is interested in receiving injections but has difficulty returning again and again for diagnostic and therapeutic injections due to work commitments. He would prefer if we can provide him with some longer-term relief through injections done in the office. [facility] Medical History Obesity (BMI 30-39.9) Anxiety Renal calculi Surgical History Hx of appendectomy (~1994) Hx laparoscopic cholecystectomy (~2007) Family History Father No problems noted. Mother No problems noted. Social History Housing: Apartment Alcohol intake: former Patient Tobacco Use Status: Never used Tobacco e-Cigarette/Vaping Use: Never Used Second Hand Smoke Exposure: No service: No Current occupational status: employed Current occupational exposures/hazards: No Cognitive needs: No Hearing needs: No Vision needs: No Review of Systems Const All systems reviewed & are unremarkable except as noted in HPI and below Physical Exam Vital Signs: Last Vital Signs Pulse 86 04/25/24 09:40 Resp 14 04/25/24 09:40 BP 110/60 04/25/24 09:40 Pulse Ox 93 04/25/24 09:40 Oxygen Delivery Method Room Air 04/25/24 09:40 BMI result Body Mass Index 36.2 General: Appears afebrile. Alert and oriented. Mood and affect appropriate. Follows and participates in conversation appropriately. Respiratory effort is unlabored. Able to transition from sit to stand unassisted. Ambulates with bilaterally normal heel strike and toe off. Results Reviewed Results Reviewed: No imaging is available for review. Assessment & Plan Assessment & Plan (1) Lumbar spondylosis: Code(s): M47.816 - Spondylosis without myelopathy or radiculopathy, lumbar region Category: Medical (2) Lumbar back sprain: Code(s): S33.5XXA - Sprain of ligaments of lumbar spine, initial encounter Category: Medical Plan Discussed diagnostic injections to pinpoint the origin of the pain symptoms, however this presents a difficulty for the patient given his work commitments. His pain does appear to be secondary to primarily lumbar spondylosis so I will schedule him for therapeutic right L2-L3-L4 facet blocks/TPI, ultrasound guided, in the office as a next step. Discussed the risks and benefits of the procedure with the patient in detail. All questions were answered. The patient is on board with the plan. The patient will follow up for in office back injection. Justification for interventional therapy: ? Patient with average pain > 6/10 ? Patient has exhausted conservative therapy ? Patient unable to tolerate physical therapy due to pain. . Patient has a good understanding of their pain condition and has appropriate mental and social support Scribed for Dr. Espino by Brannon Armas, medical customer service representative, on 04/25/2024. I, Dr. Espino, have personally reviewed and agree with the information entered by the scribe. Coding Level of Care Code Est Pt Level 3 (69186) Diagnoses Lumbar spondylosis M47.816 Lumbar back sprain S33.5XXA
[2024-04-25 09:40] VITALS: BP 110/60; PULSE 86; RESP 14; O2SAT 93; BMI 36.2
== END 2024-04-25 10:19 | disposition home or self-care (01) ==
PROVIDERS: PCP Internal Medicine; Visit Provider Internal Medicine
DX: M47.816 Spondylosis without myelopathy or radiculopathy, lumbar region (principal); S33.5XXA Sprain of ligaments of lumbar spine, initial encounter
CPT/HCPCS: 99213

== ENCOUNTER → 2024-04-25 09:36 | Outpatient (BNVA) | payer OTHER, SELFPAY | PROVIDERS: PCP Internal Medicine; Visit Provider Internal Medicine | DX: S33.5XXA Sprain of ligaments of lumbar spine, initial encounter (principal); M47.816 Spondylosis without myelopathy or radiculopathy, lumbar region | CPT/HCPCS: 99212 ==

== ENCOUNTER 2024-05-12 10:36 | Outpatient (AMB) | payer OTHER, SELFPAY ==
--- NOTE | 2024-05-12 10:48 | MHC.PC.OV ---
Vital Signs 05/12/24 10:50 Height 5 ft 9 in Weight 243 lb BMI 35.9 BP 110/62 Blood Pressure Location Lt brachial Position Sitting Pulse 77 Pulse Source Pulse Oximeter Pulse Oximetry (%) 95 Oxygen Delivery Method Room Air Intake Visit Reasons: 4mth f/u Intake Note: Patient is here to follow up on Low back pain, Obesity, BPH. Sausage Inspector Required: Yes Sausage Inspector Language: Upholsterer Helper Name: Yuniel Bruner [phone]) Professor Of Industrial Technology: Not Required per policy Accompanied by: Self / Same As Patient Allergies sertraline Adverse Reaction (Intermediate, Verified 05/12/24 11:47) nausea tamsulosin Adverse Reaction (Intermediate, Uncoded 05/12/24 11:47) headache tramadol Adverse Reaction (Intermediate, Uncoded 05/12/24 11:47) nausea Medication List - Last Reconciled 05/12/24 by Codey Raygoza MD ibuprofen 800 mg PO Q8H PRN tramadol 50 mg PO BID PRN Tobacco use date assessed: 01/11/24 Dental Screening Dental Screen Date: 01/11/24 HPI 4mth f/u HPI Details Patient comes in today for his follow up visit States that he is now seeing pain management for his lower back pain and is currently awaiting scheduling for a therapeutic right L2-L3-L4 facet blocks/TPI, ultrasound guided, in the office States that he feels okay otherwise but now recalls that he never did ask how he did on his blood tests done after his physical exam last August 2023 He currently denies any headaches or dizziness Denies any chest pains, no SOB No nausea/vomiting, no abdominal pain No change in bowel habits noted He would also like to get a referral to see a liver specialist for his Hx of fatty liver Adds that he was never contacted regarding his colonoscopy after we referred him last year and would like to make sure this is done this time He also needs his Rx refilled PFSH Medical History Vitamin D deficiency Pure hypercholesterolemia Obesity (BMI 30-39.9) Anxiety Renal calculi Surgical History Hx of appendectomy (~1994) Hx laparoscopic cholecystectomy (~2007) Family History Father No problems noted. Mother No problems noted. Social History Housing: Apartment Alcohol intake: former Patient Tobacco Use Status: Current everyday Tobacco user Tobacco use type: Cigarette Cigarette Packs Per Day: 0.5 Cigarettes Per Day: 6 e-Cigarette/Vaping Use: Never Used Second Hand Smoke Exposure: Yes service: No Current occupational status: employed Current occupational exposures/hazards: No Cognitive needs: No Hearing needs: No Vision needs: No Questionnaire Thrive Questionnaire Date Thrive assessed: 12/10/23 DANNY-7 AMB Questionnaire DANNY-7 Date DANNY - 7 assessed: 12/10/23 Source: Developed by Drs. Cj Stahl, Lexie Clemens, Primo Albert and colleagues, with an educational flaco from [employer]. Review of Systems Const Denies chills, Denies fatigue, Denies fever(s) and Denies headache(s) ENT Denies dysphagia, Denies dizziness, Denies otalgia, Denies headache(s), Denies neck pain, Denies odynophagia and Denies sore throat Card Denies chest pain, Denies palpitations and Denies dyspnea Resp Denies chest congestion, Denies cough, Denies dyspnea and Denies wheezing GI Denies abdominal pain, Denies constipation, Denies dysphagia, Denies heartburn, Denies diarrhea, Denies nausea, Denies odynophagia and Denies vomiting Denies dysuria, Denies nocturia and Denies urinary frequency Musc Reports back pain (increasing), Denies neck pain and Denies radiating pain into limb Skin/Breast Denies rash Neuro Denies dizziness and Denies headache(s) Endo Denies fatigue and Denies palpitations Aller/Immun Denies wheezing Physical exam (Primary Care) Vital Signs: Last Vital Signs Pulse 77 05/12/24 10:50 BP 110/62 05/12/24 10:50 Pulse Ox 95 05/12/24 10:50 Oxygen Delivery Method Room Air 05/12/24 10:50 BMI result Body Mass Index 35.9 Tobacco/Smoking Status: Tobacco use Status Tobacco use date assessed 01/11/24 05/12/24 10:57 Patient Tobacco Use Status Current everyday Tobacco 05/12/24 10:57 Tobacco use type Cigarette 05/12/24 10:57 e-Cigarette/Vaping Use Never Used 05/12/24 10:57 Thrive Assessment: Date of Thrive Assessment Date Thrive assessed 12/10/23 05/12/24 10:57 Const General: no acute distress and alert HENMT Ears: TM's normal bilaterally and EAC's normal Throat: Yes posterior oropharynx normal and Yes tonsils normal (no TP congestion) Neck Neck: Yes no lymphadenopathy and Yes supple Thyroid: Thyroid normal Resp Auscultation: clear to auscultation bilaterally, no rales and no wheezes Cardio Rate: regular rate Rhythm: regular rhythm Heart sounds: no murmurs GI Palpation (GI): Soft to palpation and nontender Auscultation: normal bowel sounds General: Yes no CVA tenderness Back/Spine/Pelvis Back: no CVA tenderness Thoracic/Lumbar Spine: lumbar spinal tenderness Skin Rashes: no rashes Extrem General: Yes no clubbing, cyanosis or edema Results Reviewed Results Reviewed: Laboratory Tests 09/01/23 10/27/23 08:36 05:34 WBC 4.9 Hgb 15.1 Hct 44.3 Plt Count 151 L D Sodium 140 Potassium 3.2 L Creatinine 0.93 Estimated GFR > 60 Random Glucose 157 H Fasting Glucose 131 H Calcium 8.8 D Magnesium 1.8 AST 35 ALT 80 H Triglycerides 106 Cholesterol 196 LDL Cholesterol, Calc 133 H HDL Cholesterol 42 PSA Screen 2.98 Total PSA 2.98 25-OH Vitamin D Total 27.0 L TSH 1.26 Assessment and Plan Assessment & Plan (1) Pure hypercholesterolemia: Code(s): E78.00 - Pure hypercholesterolemia, unspecified Plan: Results of his labs done late last year (August 2023) reviewed and discussed with patient He is advised that his total and LDL cholesterol levels were both elevated to slightly higher than normal Discussed low cholesterol diet Will have patient recheck his labs and fasting lipids in 4 months for follow up (2) Hyperglycemia: Code(s): R73.9 - Hyperglycemia, unspecified Plan: He is advised that his fasting blood sugar was also elevated (131 mg/dl) at the time and will need to be monitored and rechecked Reinforced low calorie/low carb diet Will recheck his FBS in 4 months; will also check his HgbA1c then for further evaluation (3) Elevated LFTs: Code(s): R79.89 - Other specified abnormal findings of blood chemistry Plan: His ALT was also elevated on his labs back in August 2023 Patient relates (+) Hx of fatty liver and is requesting for a referral to see a liver specialist - [place] [facility] [facility] He is advised that losing weight should help address this issue (4) Vitamin D deficiency: Code(s): E55.9 - Vitamin D deficiency, unspecified Plan: He is advised that his Vitamin D level was low on his recent labs Will start him on Vitamin D3 2000 units QD (5) Low back pain: Code(s): M54.50 - Low back pain, unspecified Qualifiers: Chronicity: chronic Back pain laterality: midline Sciatica presence: unspecified whether sciatica present Qualified Code(s): M54.50 - Low back pain, unspecified; G89.29 - Other chronic pain Plan: Reinforced activity and weight-lifting restrictions Spine x-rays done back in August 2023 revealed (+) facet arthritis in the lower lumbar spine as well as mild multilevel lumbar spondylosis; there are also multilevel degenerative changes with flowing anterior osteophytes in the mid to lower thoracic spine He is currently on Tramadol 50 mg TID PRN, Ibuprofen 800 mg TID PRN and Tizanidine 4 mg TID PRN He is also now seeing pain management for his lower back pain and is currently awaiting scheduling for a therapeutic right L2-L3-L4 facet blocks/TPI, ultrasound guided, in the office with Dr. 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 Follow up with urology as scheduled (7) Anxiety: Code(s): F41.9 - Anxiety disorder, unspecified Plan: He was taking Lorazepam 1 mg Q HS PRN previously but has not asked for Rx in a while now He could not tolerate Sertraline (50 mg QD) due to side effects (8) Obesity (BMI 30-39.9): Code(s): E66.9 - Obesity, unspecified Plan: Reinforced diet/lose weight; exercise is currently impractical due to his increasing back pain Plan Follow up in 4 months Orders: Orders Complete Blood Count Auto Diff 4 Months D64.9 - Anemia, unspecified Lipid Panel 4 Months E78.00 - Pure hypercholesterolemia, unspecified UA CC w/rflx Micro + Cult 4 Months R30.0 - Dysuria Vitamin D 25-OH Total 4 Months E55.9 - Vitamin D deficiency, unspecified Hemoglobin A1c 4 Months R73.9 - Hyperglycemia, unspecified Comprehensive Barton. Panel Fast 4 Months E78.00 - Pure hypercholesterolemia, unspecified TSH reflex Free T4 4 Months E78.00 - Pure hypercholesterolemia, unspecified Referrals Gastroenterology Referral R79.89 - Other specified abnormal findings of blood chemistry, Z12.11 - Encounter for screening for malignant neoplasm of colon Medications: New cholecalciferol (vitamin D3) 50 mcg PO DAILY 90 days 90 caps 3RF E55.9 - Vitamin D deficiency, unspecified Refilled ibuprofen Take with food 800 mg PO Q8H PRN 90 tabs 1RF pain tramadol Take only as needed for severe pain 50 mg PO BID PRN 30 tabs 0RF severe pain Coding Level of Care Code Est Pt Level 4 (43369) Diagnoses Pure hypercholesterolemia E78.00 Hyperglycemia R73.9 Elevated LFTs R79.89 Vitamin D deficiency E55.9 Chronic midline low back pain, unspecified whether sciatica present M54.50; G89.29 Chronicity: chronic Back pain laterality: midline Sciatica presence: unspecified whether sciatica present Renal calculi N20.0 Anxiety F41.9 Obesity (BMI 30-39.9) E66.9
[2024-05-12 10:50] VITALS: BP 110/62; PULSE 77; O2SAT 95; BMI 35.9
== END 2024-05-12 11:59 | disposition home or self-care (01) ==
PROVIDERS: PCP Internal Medicine; Visit Provider Internal Medicine
DX: E78.00 Pure hypercholesterolemia, unspecified (principal); R73.9 Hyperglycemia, unspecified; E66.9 Obesity, unspecified; Z68.35 Body mass index [BMI] 35.0-35.9, adult; M54.50 Low back pain, unspecified; E55.9 Vitamin D deficiency, unspecified; G89.29 Other chronic pain; N20.0 Calculus of kidney; F41.9 Anxiety disorder, unspecified
CPT/HCPCS: 99214

== ENCOUNTER 2024-08-08 08:44 | Outpatient (REF) | payer OTHER, SELFPAY ==
[2024-08-08 08:59] LABS: MANUAL DIFF FLAG NO
[2024-08-08 09:43] LABS: Basophils Percent Auto 0.7 % (0-2); Eosinophils Absolute Auto 0.2 X10*3/uL (0.0-0.4); Eosinophils Percent Auto 4.5 % (0-4); Hematocrit 45.9 % (42.0-52.0); Hemoglobin 15.6 g/dl (14.0-18.0); Imm Gran Abs Auto 0.01 X10*3/uL (0.00-0.03); Imm Gran Pct Auto 0.2 % (0.0-0.4); Lymphocytes Absolute Auto 1.4 X10*3/uL (1.2-4.9); Lymphocytes Percent Auto 33.6 % (20-40); Mean Corpuscular Hemoglobin 31.8 pg (27.0-33.0); Mean Corpuscular Volume 93.7 fL (80.0-98.0); Mean Platelet Volume 10.4 fL (9.4-12.4); Monocytes Absolute Auto 0.5 X10*3/uL (0.1-1.2); Monocytes Percent Auto 11.2 % (2-11); Neutrophils Absolute Auto 2.1 x10*3/uL (2.0-8.3); Neutrophils Percent Auto 49.8 % (45-73); Platelet Count 176 X10*3/uL (160-400); Red Cell Distribution Width 11.3 % (11.0-16.0); White Blood Count 4.2 X10*3/uL (4.8-10.8)
[2024-08-08 09:50] LABS: Appearance Urine Clear; Color Urine Yellow; Glucose Urine UA Negative (Negative); Leukocyte Esterase Urine Negative (Negative); Nitrite Urine Negative (Negative); PH 5.5 (5.0-9.0); Specific Gravity - Urine >= 1.030 (1.005-1.025); Urine Blood Negative (Negative); Urine Ketones Negative (Negative); Urine Protein Negative (Neg-Trace)
[2024-08-08 09:51] LABS: Estimated Average Glucose 100 mg/dL; Hemoglobin A1C 125.6466 umol/L; Hemoglobin A1c % 5.1 % (<6.0); Total Hemoglobin (HGBA1C) 3872.2207 umol/L
[2024-08-08 10:26] LABS: Alanine Aminotransferase 79 U/L (0-40); Albumin Level 4.1 g/dL (3.5-5.0); Alkaline Phosphatase 85 U/L (39-117); Anion Gap 11 (12-20); Aspartate Amino Transferase 35 U/L (5-37); Bilirubin Total 0.7 mg/dL (0.0-1.0); Blood Urea Nitrogen 22 mg/dL (9-16); Calcium 9.2 mg/dL (8.4-10.2); Carbon Dioxide 30 mmol/L (22-29); Chloride 107 mmol/L (96-108); Cholesterol 179 mg/dL (<200); Estimated Glomerular Filt Rate > 60; Glucose Fasting 117 mg/dL (60-99); HDL Cholesterol 44 mg/dL (>40); LDL Cholesterol Calculated 118 mg/dL (<100); Potassium 4.2 mmol/L (3.3-5.1); Sodium 144 mmol/L (135-145); Total Protein 7.5 g/dL (6.5-8.0); Triglycerides 86 mg/dL (<150)
[2024-08-08 10:42] LABS: TSH reflex Free T4 0.97 uIU/mL (0.32-4.0); Vitamin D 25-OH Total 26.4 ng/mL (>30)
== END 2024-08-08 08:45 | disposition home or self-care (01) ==
LOC: HO.LAB 08:44
PROVIDERS: Visit Provider Internal Medicine
DX: D64.9 Anemia, unspecified (principal); R30.0 Dysuria; R73.9 Hyperglycemia, unspecified; E78.00 Pure hypercholesterolemia, unspecified; E55.9 Vitamin D deficiency, unspecified
CPT/HCPCS: 36415; 80053; 80061; 81003; 82306; 83036; 84443; 85025

== ENCOUNTER 2024-08-15 09:48 | Outpatient (AMB) | payer OTHER, SELFPAY ==
[2024-08-15 10:00] VITALS: BP 116/58; PULSE 92; O2SAT 94; BMI 35.2
--- NOTE | 2024-08-15 10:00 | MHC.OFFVIS ---
Vital Signs 08/15/24 10:00 Height 5 ft 9 in Weight 238 lb 8.642 oz BMI 35.2 BP 116/58 L Blood Pressure Location Rt brachial Position Sitting Pulse 92 Pulse Source Pulse Oximeter Pulse Oximetry (%) 94 Oxygen Delivery Method Room Air Intake Visit Reasons: Colonoscopy Screening Intake Note: Relevant Flags or Indicators ? Requires Kindergarten Aide? Y Pt reports he has gotten out of fdc in the last few years and is attempting to get his health in order. Franc presents in office today for a scheduled colo consult . Pt also reporting pain 'in the bladder as well as his testicle (R)'. Pt answered with this response when asked about abdominal pain. Pt states that this has been present for the last few years. CC; Since last visit; labs ordered ? done via PCP. Rx ordered ? no. Diagnostics/images ordered ? none Relevant GI Sx as reported per pt? Fecal abnormalities o?? Discolored - Pt does report having presence of melena which is intermittent. o?? Constipation o?? Diarrhea -- Pt sometimes experiencing incontinence of stool. ? Abdominal Pain o?? Lower?? Right -- Into the R Flank. ? Early satiety ? Bloating ? Abdominal distention ? Hx of any recent surgeries? None recently. ? Pertinent FMHx? Father and brother had colon cancer. Kindergarten Aide Required: Yes Kindergarten Aide Services: Kindergarten Aide Present Kindergarten Aide Name: [id number] Weeks. Information Interpreted: non-clinical & clinical Allergies sertraline Adverse Reaction (Intermediate, Verified 08/15/24 10:02) nausea tamsulosin Adverse Reaction (Intermediate, Verified 08/15/24 10:02) Headache tramadol Adverse Reaction (Mild, Verified 08/15/24 10:02) Nausea HPI HPI Colonoscopy Screening: Details: 54 year old? male with past medical history of vitamin-D deficiency, lipidemia, hyperglycemia, elevated LFTs, back pain, history of kidney stones, anxiety is here today for pre colonoscopy screening.? Patient was sent to us by his PCP.? This is his first colonoscopy screening.? Patient denies any gastrointestinal symptoms in the past or at present.? ?Patient reports that his father and brothers diagnosed with colon cancer. Patient reports that occasionally he is constipated. Occasional abdominal pain in the right lower quadrant that radiates to his back, flank area. History of kidney stones in the past. Today patient reports no pain. Patient denies melena, hematochezia, unintentional weight loss or ribbon like stools. Denies history of difficulty with sedation or anesthesia in the past.? Negative for history of sleep apnea.? Denies any history of cardiac, renal, pulmonary, or hepatic disease.?? No history of infectious? diseases like hepatitis A, B, C, HIV or tuberculosis.? Patient is not on any anticoagulation [facility] Medical History Vitamin D deficiency Pure hypercholesterolemia Obesity (BMI 30-39.9) Anxiety Renal calculi Surgical History Hx of appendectomy (~1994) Hx laparoscopic cholecystectomy (~2007) Family History Father No problems noted. Mother No problems noted. Social History Housing: Apartment Alcohol intake: former Patient Tobacco Use Status: Current everyday Tobacco user Tobacco use type: Cigarette Cigarette Packs Per Day: 0.5 Cigarettes Per Day: 6 e-Cigarette/Vaping Use: Never Used Second Hand Smoke Exposure: Yes service: No Current occupational status: employed Current occupational exposures/hazards: No Cognitive needs: No Hearing needs: No Vision needs: No Review of Systems Const Denies weight gain and Denies weight loss ENT Reports no additional complaints, Denies dysphagia and Denies odynophagia Card Reports no additional complaints Resp Reports no additional complaints GI Reports abdominal pain (Right flank), Denies belching, Denies melena, Reports bloating, Denies change in bowel habits, Reports constipation (Occasional), Denies dysphagia, Denies excessive flatus, Denies dyspepsia, Denies heartburn, Denies diarrhea, Denies loose stools, Denies nausea, Denies odynophagia and Denies vomiting Reports no additional complaints Musc Reports no additional complaints Neuro Reports no additional complaints Psych Reports no additional complaints Endo Reports no additional complaints Physical Exam Vital Signs: Last Vital Signs Pulse 92 08/15/24 10:00 BP 116/58 L 08/15/24 10:00 Pulse Ox 94 08/15/24 10:00 Oxygen Delivery Method Room Air 08/15/24 10:00 BMI result Body Mass Index 35.2 Const General: healthy appearing and no acute distress Nutritional Appearance: obese Orientation/consciousness: patient oriented x3 Resp Effort & Inspection: normal respiratory effort, able to speak in complete sentences, no tracheal deviation and symmetric chest movement Auscultation: clear to auscultation bilaterally Cardio Rate: regular rate GI Inspection: Yes normal to inspection, No distended and Yes obesity Palpation (GI): Soft to palpation, not firm, nontender and No hepatosplenomegaly present Auscultation: normal bowel sounds General: Yes no CVA tenderness Back/Spine/Pelvis Back: no CVA tenderness Skin General skin exam: elasticity normal, turgor normal and dry skin Neuro General: patient oriented x3 Psych Appearance: grossly normal Mental Status: mental status grossly normal Assessment & Plan Assessment & Plan (1) Colon cancer screening: Code(s): Z12.11 - Encounter for screening for malignant neoplasm of colon Category: Medical Plan Patient denies any cardiac or respiratory symptoms.? Denies any issues with anesthesia in the past.? Denies any history of sleep apnea.? No history infectious diseases in the past or present.? Not on any anticoagulation therapy.? Patient denies melena, hematochezia, unintentional weight loss or ribbon like stools.? Discussed at length the pre-procedure,? prep, diet & medications as well as what to expect prior, during and after the procedure.?? Stressed the importance of good bowel prep.? Recommended the use of Vaseline or Calmoseptine OTC & baby wipes with bowel movements to promote comfort.? ?Patient verbalizes understanding and agrees to plan of care.? He was given the opportunity to ask questions and all questions answered.? We will see him after the procedure.? Medications: New bisacodyl (Dulcolax (bisacodyl)) take 4 tabs at noon the day before your colonoscopy 20 mg (4 x 5 mg) PO ONCE 4 tabs 0RF 1 day Z12.11 - Encounter for screening for malignant neoplasm of colon polyethylene glycol 3350 (Miralax) As directed by gastroenterology department at [facility] 238 grams PO ONCE 238 grams 0RF Z12.11 - Encounter for screening for malignant neoplasm of colon Coding Level of Care Code New Pt Level 3 (78153) Diagnoses Colon cancer screening Z12.11 Time Spent (min) 40 Comment 30 minutes spent with patient and additional 10 minutes spent reviewing his records
== END 2024-08-15 11:03 | disposition home or self-care (01) ==
PROVIDERS: PCP Internal Medicine; Visit Provider Nurse Practitioner Family
DX: Z12.11 Encounter for screening for malignant neoplasm of colon (principal); Z01.818 Encounter for other preprocedural examination
CPT/HCPCS: 99203

== ENCOUNTER → 2024-08-15 09:48 | Outpatient (BNVA) | payer OTHER, SELFPAY | PROVIDERS: PCP Internal Medicine; Visit Provider Nurse Practitioner Family | DX: Z12.11 Encounter for screening for malignant neoplasm of colon (principal) | CPT/HCPCS: 99202 ==

== ENCOUNTER 2024-09-11 10:50 | Outpatient (AMB) | payer OTHER, SELFPAY ==
--- NOTE | 2024-09-11 10:54 | MHC.OFFVIS ---
Intake Visit Reasons: 1y/PSA Intake Note: 1Y/PSA Blood Thinner: none PVR today: 16 [employer] Required: Yes [employer]il[employer] Name: Raadkellee [facility] Certified Interpre Information Interpreted: non-clinical & clinical Allergies sertraline Adverse Reaction (Intermediate, Verified 09/11/24 10:56) nausea tamsulosin Adverse Reaction (Intermediate, Verified 09/11/24 10:56) Headache tramadol Adverse Reaction (Mild, Verified 09/11/24 10:56) Nausea Medication List - Last Reconciled 09/11/24 by Hussain Cardenas MD bisacodyl (Dulcolax (bisacodyl)) 20 mg (4 x 5 mg) PO ONCE 1 day cholecalciferol (vitamin D3) 50 mcg PO DAILY 90 days polyethylene glycol 3350 (Miralax) 238 grams PO ONCE HPI Comments Details: Franc is a 54-year-old male who presents today to the office for a follow-up. He is followed today for nephrolithiasis and BPH. Urinalysis within normal limits. Bladder scan PVR 16 mL. Will continue to monitor PSA. 09/10/2023-- The patient is a Turkmen speaking male. Certified natural resource manager was present during the visit. He is followed today for nephrolithiasis and BPH. He was last seen by me on 06/15/2023. Tamsulosin was prescribed. Patient states that he had developed headache while taking tamsulosin. Patient has had an episode of hematuria in the past. I have reviewed CT of the abdomen/pelvis without contrast from 03/11/2023 revealed no hydronephrosis or obstructing calculus bilaterally. PSA results reviewed ? 09/01/2023?2.98 ng/mL. Review of chart: Imaging: CT of the abdomen/pelvis without contrast from 03/11/2023 revealed no hydronephrosis or obstructing calculus bilaterally. X-ray of the KUB results from 02/26/2023 revealed No acute process seen.? Suboptimal visualization of kidneys. Radiopaque calculi are not visualized. Prior Kidney stone Tx: laser and stent about 5 years ago. [facility] Medical History Vitamin D deficiency Pure hypercholesterolemia Obesity (BMI 30-39.9) Anxiety Renal calculi Surgical History Hx of appendectomy (~1994) Hx laparoscopic cholecystectomy (~2007) Family History Father No problems noted. Mother No problems noted. Social History Housing: Apartment Alcohol intake: former Patient Tobacco Use Status: Current everyday Tobacco user Tobacco use type: Cigarette Cigarette Packs Per Day: 0.5 Cigarettes Per Day: 6 e-Cigarette/Vaping Use: Never Used Second Hand Smoke Exposure: Yes service: No Current occupational status: employed Current occupational exposures/hazards: No Cognitive needs: No Hearing needs: No Vision needs: No Review of Systems Const All systems reviewed & are unremarkable except as noted in HPI and below Reports no additional complaints Eyes Reports no additional complaints ENT Reports no additional complaints Card Reports no additional complaints Resp Reports no additional complaints GI Reports no additional complaints Reports as per HPI Musc Reports no additional complaints Skin/Breast Reports system reviewed and no additional complaints, except as documented Neuro Reports no additional complaints Psych Reports no additional complaints Endo Reports no additional complaints Jam/Lymph Reports no additional complaints Aller/Immun Reports no additional complaints Office Procedures Post Void Residual Post Residual Void Post Void Residual (PVR): 16 (24) 81434-Post Void Residual by ultrasound Results AMB Urinalysis, Automated UA Leukoctes 0 Delores/uL Last Edit by Ilda Fletcher on 09/11/24 11:41 UA Nitrite Negative Last Edit by Ilda Fletcher on 09/11/24 11:41 UA Urobilinogen 1 mg/dL Last Edit by Ilda Fletcher on 09/11/24 11:41 UA Protein 15 mg/dL Last Edit by Ilda Fletcher on 09/11/24 11:41 UA pH 6.5 Last Edit by Ilda Fletcher on 09/11/24 11:41 UA Blood 0 John/uL Last Edit by Ilda Fletcher on 09/11/24 11:41 UA Specific [place] 1.015 Last Edit by Ilda Fletcher on 09/11/24 11:41 UA Ketone Negative Last Edit by Ilda Fletcher on 09/11/24 11:41 UA Bilirubin 0 mg/dL Last Edit by Ilda Fletcher on 09/11/24 11:41 UA Glucose 0 mg/dL Last Edit by Ilda Fletcher on 09/11/24 11:41 Results Reviewed Results Reviewed: Laboratory Last Values Urine pH (Auto) 6.5 09/11/24 11:11 Specific [place] (Auto) 1.015 09/11/24 11:11 Urine Protein (Auto) 15 mg/dL 09/11/24 11:11 Glucose (UA)(Auto) 0 mg/dL 09/11/24 11:11 Urine Ketones (Auto) Negative 09/11/24 11:11 Urine Blood (Auto) 0 John/uL 09/11/24 11:11 Urine Nitrite (Auto) Negative 09/11/24 11:11 Urine Bilirubin (Auto) 0 mg/dL 09/11/24 11:11 Urine Urobilinogen (Auto) 1 mg/dL 09/11/24 11:11 Leukocyte Esterase (Auto) 0 Delores/uL 09/11/24 11:11 Date of Service: 03/11/23 EXAMINATION: CT ABDOMEN AND PELVIS WITHOUT CONTRAST? CLINICAL INFORMATION: Abdominal pain? COMPARISON: None available. FINDINGS: LUNG BASES: The visualized lung bases are unremarkable.? LIVER, GALLBLADDER, AND BILIARY TREE: The liver is normal in size, shape, and attenuation. No focal hepatic lesion or biliary ductal dilatation is identified on this noncontrast exam. Patient is status post cholecystectomy.? PANCREAS: Unremarkable.? SPLEEN: Unremarkable.? ADRENAL GLANDS: Unremarkable.? KIDNEYS AND URETERS: Right kidney appears malrotated. No hydronephrosis or obstructing calculus bilaterally.? BLADDER: Mildly distended and grossly unremarkable.? GASTROINTESTINAL TRACT: Assessment for wall thickening in some segments of the colon is limited due to luminal collapse, though no significant pericolonic stranding is seen to strongly suggest a colitis. No evidence of bowel obstruction. No free fluid or free air is seen. ABDOMINAL WALL: Bilateral fat-containing inguinal hernias.? LYMPH NODES: Normal. VASCULAR: Unremarkable. PELVIC VISCERA: Prostate gland appears mildly prominent.? OSSEOUS STRUCTURES: Scattered endplate osteophytes are present in the spine.? IMPRESSION: No acute findings identified in the abdomen/pelvis. Date of Service: 02/26/23 EXAMINATION: XR ABDOMEN KUB CLINICAL INDICATION: Calculus of kidney. Right-sided pain? COMPARISON: None available.? FINDINGS: There is scattered stool and gas seen throughout the colon without significant distention. The small bowel loops are normal caliber. Significant surgical samantha in right upper quadrant likely from previous cholecystectomy. There are phleboliths in the pelvis. The kidneys are suboptimally visualized unenhanced radiopaque calculi cannot be excluded. No gross bony abnormality. IMPRESSION: 1.? Mild constipation. No acute process seen. 2.? Suboptimal visualization of kidneys. Radiopaque calculi are not visualized but cannot be excluded. Assessment & Plan Assessment & Plan (1) Screening PSA (prostate specific antigen): Code(s): Z12.5 - Encounter for screening for malignant neoplasm of prostate Category: Medical (2) History of kidney stones: Code(s): Z87.442 - Personal history of urinary calculi Category: Medical (3) BPH loc w urin obs/LUTS: Code(s): N40.1 - Benign prostatic hyperplasia with lower urinary tract symptoms Category: Medical Plan He is followed today for nephrolithiasis and BPH. Urinalysis within normal limits. Bladder scan PVR 16 mL. Will continue to monitor PSA. Orders: Orders AMB Post Void Residual by ultrasound Today Z12.5 - Encounter for screening for malignant neoplasm of prostate, Z13.9 - Encounter for screening, unspecified AMB Urinalysis Automated Today Z13.9 - Encounter for screening, unspecified PSA,Total (Free>4and<10) Today Z12.5 - Encounter for screening for malignant neoplasm of prostate Patient Instructions: The patient had an opportunity to ask questions regarding treatment plan. The patient expressed understanding and agreement with the above treatment plan. The patient is aware they should contact our office by phone for worsening of their current condition or the appearance of new symptoms. Compliance is encouraged with any medications and followup testing that is ordered. It is a privilege to be allowed the opportunity to participate in the urologic care of your patient. If you have any questions or concerns regarding treatment for the above conditions please do not hesitate to contact me. The office telephone contact is [phone]. This note is constructed in part using voice recognition software. While every effort has been made to ensure accuracy field artillery officer errors may have been included. Yours sincerely, Hussain Cardenas MD Coding Level of Care Code Est Pt Level 3 (89978) Diagnoses Screening PSA (prostate specific antigen) Z12.5 History of kidney stones Z87.442 BPH loc w urin obs/LUTS N40.1 CPT Codes Post Residual Void - PVR CPT Code: 90262-Byzp Void Residual by ultrasound ([id number])
== END 2024-09-11 11:45 | disposition home or self-care (01) ==
PROVIDERS: PCP Internal Medicine; Visit Provider Urology
DX: Z12.5 Encounter for screening for malignant neoplasm of prostate (principal); Z87.442 Personal history of urinary calculi; N40.1 Benign prostatic hyperplasia with lower urinary tract symptoms; Z13.9 Encounter for screening, unspecified
CPT/HCPCS: 99213

== ENCOUNTER → 2024-09-11 10:50 | Outpatient (BNVA) | payer OTHER, SELFPAY | PROVIDERS: PCP Internal Medicine; Visit Provider Urology | DX: N40.1 Benign prostatic hyperplasia with lower urinary tract symptoms (principal); N13.8 Other obstructive and reflux uropathy; N20.0 Calculus of kidney; Z87.442 Personal history of urinary calculi; Z12.5 Encounter for screening for malignant neoplasm of prostate | CPT/HCPCS: 51798; 81003; 99212 ==

== ENCOUNTER 2024-09-11 11:53 | Outpatient (REF) | payer OTHER, SELFPAY ==
[2024-09-11 14:26] LABS: PSA,Total (Free>4and<10) 2.88 ng/mL (0.00-4.00)
== END 2024-09-11 11:54 | disposition home or self-care (01) ==
LOC: HO.10HDL 11:53
PROVIDERS: Visit Provider Urology
DX: Z12.5 Encounter for screening for malignant neoplasm of prostate (principal)
CPT/HCPCS: 36415; 84153

== ENCOUNTER 2024-09-22 10:35 | Outpatient (AMB) | payer OTHER, SELFPAY ==
[2024-09-22 10:49] VITALS: BP 124/80; PULSE 97; O2SAT 95; BMI 35.0
--- NOTE | 2024-09-22 10:49 | A.OFFPC_ITS ---
Vital Signs 09/22/24 10:49 Height 5 ft 9 in Weight 237 lb BMI 35.0 BP 124/80 Blood Pressure Location Lt brachial Position Sitting Pulse 97 Pulse Source Pulse Oximeter Pulse Oximetry (%) 95 Oxygen Delivery Method Room Air Intake Visit Reasons: hyperlipidemia, IFG, elevated LFTs Sap Pp Consultant Required: No Accompanied by: Self / Same As Patient Allergies sertraline Adverse Reaction (Intermediate, Verified 09/29/24 04:22) nausea tamsulosin Adverse Reaction (Intermediate, Verified 09/29/24 04:22) Headache tramadol Adverse Reaction (Mild, Verified 09/29/24 04:22) Nausea Medication List - Last Reconciled 09/29/24 by Codey Raygoza MD bisacodyl (Dulcolax (bisacodyl)) 20 mg (4 x 5 mg) PO ONCE 1 day cholecalciferol (vitamin D3) 50 mcg PO DAILY 90 days polyethylene glycol 3350 (Miralax) 238 grams PO ONCE tadalafil 5 mg PO DAILY PRN Tobacco use date assessed: 09/22/24 Dental Screening Dental Screen Date: 09/22/24 Did you have a dental visit in the last 12 months?: No Did you have a dental problem in the last 6 months where you did not have access to dental care?: No Was dental information given to patient?: Patient has dentist HPI hyperlipidemia, IFG, elevated LFTs HPI Details Patient comes in today for his follow-up visit States that he feels okay He denies any headaches or dizziness Denies any chest pains, no shortness of breath No nausea/vomiting, no abdominal pain No change in bowel habits noted He reports experiencing symptoms of ED lately and feels that this has been getting worse - is requesting for some Rx to help with this He had his follow-up labs done last month - to discuss his results [facility] Medical History Erectile dysfunction Elevated LFTs Lumbar spondylosis Impaired fasting glucose Vitamin D deficiency Pure hypercholesterolemia Obesity (BMI 30-39.9) Anxiety Renal calculi Surgical History Hx of appendectomy (~1994) Hx laparoscopic cholecystectomy (~2007) Family History Father No problems noted. Mother No problems noted. Social History Housing: Apartment Alcohol intake: former Patient Tobacco Use Status: Current everyday Tobacco user Tobacco use type: Cigarette Cigarette Packs Per Day: 0.5 Cigarettes Per Day: 6 e-Cigarette/Vaping Use: Never Used Second Hand Smoke Exposure: Yes service: No Current occupational status: employed Current occupational exposures/hazards: No Cognitive needs: No Hearing needs: No Vision needs: No Questionnaire PHQ-9 Over the last 2 weeks, how often have you been bothered by any of the following problems? 1. Little interest or pleasure in doing things: not at all 2. Feeling down, depressed, or hopeless: not at all 3. Trouble falling or staying asleep, or sleeping too much: not at all 4. Feeling tired or having little energy: not at all 5. Poor appetite or overeating: not at all 6. Feeling bad about yourself - or that you are a failure or have let yourself or your family down: not at all 7. Trouble concentrating on things, such as reading the newspaper or watching television: not at all 8. Moving or speaking so slowly that other people could have noticed. Or the opposite - being so fidgety or restless that you have been moving around a lot more than usual: not at all 9. Thoughts that you would be better off or of hurting yourself in some way: not at all Total score: 0 Depression Screening Interpretation: Negative Depression Screening Done: Yes 23015 - PHQ-9 Billing: Yes Source: Developed by Drs. Cj Stahl, [place] and colleagues, with an educational flaco from [employer] Thrive Questionnaire Date Thrive assessed: 12/10/23 DANNY-7 AMB Questionnaire DANNY-7 Date DANNY - 7 assessed: 12/10/23 Source: Developed by Drs. Cj Stahl, [place] and colleagues, with an educational flaco from [employer]. Review of Systems Const Denies chills, Denies fatigue, Denies fever(s) and Denies headache(s) ENT Denies dysphagia, Denies dizziness, Denies otalgia, Denies headache(s), Denies neck pain, Denies odynophagia and Denies sore throat Card Denies chest pain, Denies palpitations and Denies dyspnea Resp Denies chest congestion, Denies cough and Denies dyspnea GI Denies abdominal pain, Denies constipation, Denies dysphagia, Denies heartburn, Denies diarrhea, Denies nausea, Denies odynophagia and Denies vomiting Reports erectile dysfunction, Denies dysuria, Denies nocturia and Denies urinary frequency Musc Reports back pain (over the lower back), Denies neck pain and Denies radiating pain into limb Skin/Breast Denies rash Neuro Denies dizziness and Denies headache(s) Endo Denies fatigue and Denies palpitations Physical exam (Primary Care) Vital Signs: Last Vital Signs Pulse 97 09/22/24 10:49 BP 124/80 09/22/24 10:49 Pulse Ox 95 09/22/24 10:49 Oxygen Delivery Method Room Air 09/22/24 10:49 BMI result Body Mass Index 35.0 Tobacco/Smoking Status: Tobacco use Status Tobacco use date assessed 09/22/24 09/22/24 10:51 Patient Tobacco Use Status Current everyday Tobacco 09/22/24 10:51 Tobacco use type Cigarette 09/22/24 10:51 e-Cigarette/Vaping Use Never Used 09/22/24 10:51 PHQ-9: PHQ-9 Score PHQ-9: Total score 0 09/22/24 11:48 Depression Screening Interpretation: Negative Thrive Assessment: Date of Thrive Assessment Date Thrive assessed 12/10/23 09/22/24 10:51 Const General: no acute distress and alert HENMT Ears: TM's normal bilaterally and EAC's normal Throat: Yes posterior oropharynx normal and Yes tonsils normal (no TP congestion) Neck Neck: Yes no lymphadenopathy and Yes supple Thyroid: Thyroid normal Resp Auscultation: clear to auscultation bilaterally, no rales and no wheezes Cardio Rate: regular rate Rhythm: regular rhythm Heart sounds: no murmurs GI Palpation (GI): Soft to palpation and nontender Auscultation: normal bowel sounds General: Yes no CVA tenderness Back/Spine/Pelvis Back: no CVA tenderness Thoracic/Lumbar Spine: lumbar spinal tenderness Skin Rashes: no rashes Extrem General: Yes no clubbing, cyanosis or edema Results Reviewed Results Reviewed: Laboratory Tests 08/08/24 08/08/24 09/11/24 08:49 08:58 11:55 WBC 4.2 L Hgb 15.6 Hct 45.9 Plt Count 176 Sodium 144 Potassium 4.2 Creatinine 1.06 Estimated GFR > 60 Fasting Glucose 117 H Hemoglobin A1c % 5.1 Calcium 9.2 AST 35 ALT 79 H Triglycerides 86 Cholesterol 179 LDL Cholesterol, Calc 118 H HDL Cholesterol 44 Total PSA 2.88 25-OH Vitamin D Total 26.4 L TSH 0.97 Ur Specific [place] >= 1.030 H Urine Protein Negative Urine Glucose (UA) Negative Urine Blood Negative Urine Nitrite Negative Ur Leukocyte Esterase Negative Coding Level of Care Code Est Pt Level 4 (05627) Diagnoses Pure hypercholesterolemia E78.00 Impaired fasting glucose R73.01 Elevated LFTs R79.89 Vitamin D deficiency E55.9 Lumbar spondylosis M47.816 Renal calculi N20.0 Erectile dysfunction, unspecified erectile dysfunction type N52.9 Erectile dysfunction type: unspecified Anxiety F41.9 Obesity (BMI 30-39.9) E66.9 Additional Codes PHQ-9 - 94791 - PHQ-9 Billing: Yes ([id number]) Assessment & Plan Assessment & Plan (1) Pure hypercholesterolemia: Code(s): E78.00 - Pure hypercholesterolemia, unspecified Category: Medical Plan: Results of his labs done last month reviewed and discussed with patient Reinforce low-cholesterol diet Will have patient recheck his labs and fasting lipids in 4 months for follow-up (2) Impaired fasting glucose: Code(s): R73.01 - Impaired fasting glucose Category: Medical Plan: His FBS was elevated at 117 mg/dL on his labs done last month; HgbA1c was at 5.1% Reinforce low calorie/low carb diet; exercise as tolerated Will recheck his FBS and HgbA1c in 4 months for follow-up (3) Elevated LFTs: Code(s): R79.89 - Other specified abnormal findings of blood chemistry Category: Medical Plan: His ALT was still elevated on his labs done last month; AST was normal He is advised that this is likely related to his weight and that losing weight should help address this issue Follow up with GI as scheduled (4) Vitamin D deficiency: Code(s): E55.9 - Vitamin D deficiency, unspecified Category: Medical Plan: Continue Vitamin D3 1999 units QD Will recheck his Vitamin D level in 4 months (5) Lumbar spondylosis: Code(s): M47.816 - Spondylosis without myelopathy or radiculopathy, lumbar region Category: Medical Plan: Reinforced activity and weight-lifting restrictions Spine x-rays done back in August 2023 revealed (+) facet arthritis in the lower lumbar spine as well as mild multilevel lumbar spondylosis; there are also multilevel degenerative changes with flowing anterior osteophytes in the mid to lower thoracic spine Continue Tramadol 50 mg TID PRN, Ibuprofen 800 mg TID PRN and Tizanidine 4 mg TID PRN for pain He is also seeing pain management for his lower back pain (6) Renal calculi: Comment: right side Code(s): N20.0 - Calculus of kidney Category: Medical Plan: His KUB and abdominal/pelvic CT done back in February 2023 revealed NO renal stones although 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 Follow up with urology as scheduled (7) Erectile dysfunction: Code(s): N52.9 - Male erectile dysfunction, unspecified Category: Medical Qualifiers: Erectile dysfunction type: unspecified Qualified Code(s): N52.9 - Male erectile dysfunction, unspecified Plan: Will start patient on a trial of Tadalafil 5 mg QD (8) Anxiety: Code(s): F41.9 - Anxiety disorder, unspecified Category: Medical Plan: He was taking Lorazepam 1 mg Q HS PRN previously but he has not asked for his Rx in a while now He could not tolerate Sertraline (50 mg QD) due to side effects (9) Obesity (BMI 30-39.9): Code(s): E66.9 - Obesity, unspecified Category: Medical Plan: Reinforced diet/exercise as tolerated/lose weight Plan Follow up in 4 months Orders: Orders Comprehensive [place]. Panel Fast 4 Months E78.00 - Pure hypercholesterolemia, unspecified Hemoglobin A1c 01/20/25 R73.01 - Impaired fasting glucose Complete Blood Count Auto Diff 4 Months D64.9 - Anemia, unspecified Lipid Panel 4 Months E78.00 - Pure hypercholesterolemia, unspecified Vitamin D 25-OH Total 01/20/25 E55.9 - Vitamin D deficiency, unspecified Medications: New tadalafil 5 mg PO DAILY PRN 30 tabs 0RF sexual activity
== END 2024-09-22 11:52 | disposition home or self-care (01) ==
PROVIDERS: PCP Internal Medicine; Visit Provider Internal Medicine
DX: E78.00 Pure hypercholesterolemia, unspecified (principal); R73.01 Impaired fasting glucose; E66.9 Obesity, unspecified; Z68.35 Body mass index [BMI] 35.0-35.9, adult; E55.9 Vitamin D deficiency, unspecified; M47.816 Spondylosis without myelopathy or radiculopathy, lumbar region; N20.0 Calculus of kidney; N52.9 Male erectile dysfunction, unspecified; F41.9 Anxiety disorder, unspecified

== ENCOUNTER → 2024-09-22 10:35 | Outpatient (BNVA) | payer OTHER, SELFPAY | PROVIDERS: PCP Internal Medicine; Visit Provider Internal Medicine | DX: E78.00 Pure hypercholesterolemia, unspecified (principal); R73.01 Impaired fasting glucose; R79.89 Other specified abnormal findings of blood chemistry; E55.9 Vitamin D deficiency, unspecified; M47.816 Spondylosis without myelopathy or radiculopathy, lumbar region; N20.0 Calculus of kidney; N52.9 Male erectile dysfunction, unspecified; F41.9 Anxiety disorder, unspecified; E66.9 Obesity, unspecified | CPT/HCPCS: 96127; 99212 ==

== ENCOUNTER 2024-12-25 03:15 | Emergency (ER) | payer OTHER, SELFPAY ==
--- NOTE | 2024-12-25 | ECG_ITS ---
Test Reason : SOB/CHEST PAIN Blood Pressure : */* mmHG Vent. Rate : 82 BPM Atrial Rate : 82 BPM P-R Int : 148 ms QRS Dur : 90 ms QT Int : 384 ms P-R-T Axes : 28 -26 34 degrees QTcB Int : 448 ms Normal sinus rhythm Normal ECG When compared with ECG of 11-Mar-2023 03:12, QRS axis Shifted left Referred By: Generic ED Physician Electronically Signed By: Chi Campos
--- NOTE | ~2024-12-25 | XR_ITS ---
CLINICAL HISTORY: sob chest pressure 1 view chest x-ray. Comparison: None Findings: The lungs appear clear. There is no consolidation, effusion, or pneumothorax. Cardiomediastinal silhouette is within normal limits. IMPRESSION: No acute cardiopulmonary abnormality. This document has been electronically signed by: Adam Murillo MD on 12/25/2024 04:31:33
[2024-12-25 03:18] VITALS: BP 120/77; PULSE 89; O2SAT 96
[2024-12-25 03:29] VITALS: BMI 34.7
[2024-12-25 04:06] LABS: Basophils Percent Auto 0.8 % (0-2); Eosinophils Absolute Auto 0.2 X10*3/uL (0.0-0.4); Eosinophils Percent Auto 3.3 % (0-4); Hematocrit 43.5 % (42.0-52.0); Hemoglobin 15.3 g/dl (14.0-18.0); Imm Gran Abs Auto 0.02 X10*3/uL (0.00-0.03); Imm Gran Pct Auto 0.4 % (0.0-0.4); Lymphocytes Absolute Auto 1.7 X10*3/uL (1.2-4.9); Lymphocytes Percent Auto 34.3 % (20-40); MANUAL DIFF FLAG NO; Mean Corpuscular HGB Conc 35.2 g/dl (31.0-36.0); Mean Corpuscular Volume 88.2 fL (80.0-98.0); Monocytes Absolute Auto 0.4 X10*3/uL (0.1-1.2); Monocytes Percent Auto 7.5 % (2-11); Neutrophils Absolute Auto 2.6 x10*3/uL (2.0-8.3); Neutrophils Percent Auto 53.7 % (45-73); Platelet Count 152 X10*3/uL (160-400); Red Blood Count 4.93 X10*6/uL (4.60-5.80); White Blood Count 4.8 X10*3/uL (4.8-10.8)
[2024-12-25 04:10] VITALS: BP 115/62; PULSE 84; RESP 18; TEMP 36.8; O2SAT 95
[2024-12-25 04:14] LABS: IDNOW Serial# 6674DD1D; Strep A Nucleic Acid Negative (Negative)
[2024-12-25 04:25] LABS: B Type Natriuretic Peptide < 10 pg/mL (<100)
[2024-12-25 04:26] LABS: Alanine Aminotransferase 106 U/L (0-40); Alkaline Phosphatase 98 U/L (39-117); Anion Gap 14 (12-20); Aspartate Amino Transferase 34 U/L (5-37); Bilirubin Direct 0.2 mg/dL (0.0-0.5); Bilirubin Total 0.5 mg/dL (0.0-1.0); Blood Urea Nitrogen 15 mg/dL (9-16); Calcium 9.3 mg/dL (8.4-10.2); Carbon Dioxide 25 mmol/L (22-29); Chloride 101 mmol/L (96-108); Creatinine Clr Calc Pharmacy 85.6; Estimated Glomerular Filt Rate > 60; Glucose Random 444 mg/dL (60-115); Sodium 136 mmol/L (135-145); Total Protein 7.8 g/dL (6.5-8.0); Troponin-I High Sensitivity < 2.7 ng/L (<3.5-35.0)
[2024-12-25 04:32] LABS: Glucose, Whole Blood 415 mg/dL (60-115)
--- NOTE | 2024-12-25 04:39 | PC.NURSE ---
critical lab value - glucose of 444mg/dL received at this time. POC obtained displaying 415mg/dL. pt denies personal hx of DM but reports familial hx. provider notified/aware. no new orders at this time.
[2024-12-25 04:43] LABS: Influenza A PCR NEGATIVE (Negative); Influenza B PCR NEGATIVE (Negative); Resp Syncy Virus RNA Qual PCR NEGATIVE (Negative); SARS COV2 PCR INHOUSE NEGATIVE (Negative)
[2024-12-25 05:04] LABS: Appearance Urine Clear; Color Urine Yellow; Glucose Urine UA >=1000 mg/dL (Negative); Leukocyte Esterase Urine Negative (Negative); Nitrite Urine Negative (Negative); PH 5.5 (5.0-9.0); Specific Gravity - Urine >= 1.030 (1.005-1.025); UMIC TRIGGER UACC YES; Urine Blood Negative (Negative); Urine Ketones Negative (Negative); Urine Protein Negative (Neg-Trace)
[2024-12-25 05:09] LABS: Bacteria Urine None Seen (None Seen); Hyaline Casts Urine 0-2 /LPF (0-2); RBC Urine 0-2 /HPF (0-2); Squamous Epithelial Cell Urine 0-2 /HPF (0-2); WBC Urine 0-5 /HPF (0-5)
[2024-12-25 06:15] VITALS: BP 110/53; PULSE 74; RESP 16; TEMP 36.6; O2SAT 98
--- NOTE | 2024-12-25 06:44 | ED_ITS ---
HPI - General Adult General Chief complaint: Dyspnea Stated complaint: anxiety Time Seen by Provider: 12/25/24 06:40 Source: patient, EMS, vp of marketing (all interactions with this patient were facilitated with an [facility] approved gas plant specialist) and other (patient's partner) Mode of arrival: EMS Limitations: language barrier (all interactions with this patient were facilitated with an [facility] approved gas plant specialist) History of Present Illness ED Provider: Narcisa Araujo PA-C HPI narrative: Patient is a 54 year old assigned male at with a history of anxiety, kidney stones, and BPH presenting to the emergency department today after waking up in a panic with shortness of breath. Patient states that he woke up last night feeling short of breath. Patient's partner states that the patient snores excessively. Patient states that he has had some chest pain as well after drinking coffee yesterday but that has largely improved. Patient states that he has not eaten or drank since being in the department today. Patient states that he has been more thirsty, more hungry, and urinating more as of lately. Patient denies any dizziness, lightheadedness, abdominal pain, nausea, vomiting, fever, chills, blurry vision, double vision, loss of vision, back pain, night sweats, pain with urination, increased urinary urgency, blood in his urine or stool, syncope or a near syncopal episode, recent trauma or falls, bowel incontinence, bladder incontinence, or any other complaints at this time. Relieving factors: none Exacerbating factors: none Associated symptoms: chest pain (now resolved) and shortness of breath (episode that woke him up - now resolved) Treatments prior to arrival: none Related Data Previous Rx's ?Medication ?Instructions ?Recorded cholecalciferol (vitamin D3) 50 50 mcg PO DAILY 90 days #90 caps 05/12/24 mcg (2,000 unit) capsule bisacodyl 5 mg tablet,delayed 20 mg (4 x 5 mg) PO ONCE 1 day #4 08/15/24 release (Dulcolax (bisacodyl)) tabs polyethylene glycol 3350 17 238 g PO ONCE #238 grams 08/15/24 gram/dose oral powder (Miralax) tadalafil 5 mg tablet 5 mg PO DAILY PRN sexual activity 10/27/24 #30 tabs alcohol swabs (Alcohol Pads) 1 pad topical TIDWMEAL #100 ea 12/25/24 blood sugar diagnostic (FreeStyle #100 ea 12/25/24 Lite Strips) blood-glucose meter (FreeStyle #1 ea 12/25/24 [place] Lite kit) lancets 30 gauge (2-In-1 Lancet #100 ea 12/25/24 Device) metformin 500 mg tablet,extended 500 mg PO BID #60 tabs 12/25/24 release 24 hr Allergies Allergy/AdvReac Type Severity Reaction Status Date / Time sertraline AdvReac Intermediate nausea Verified 12/25/24 03:31 tamsulosin AdvReac Intermediate Headache Verified 12/25/24 03:31 tramadol AdvReac Mild Nausea Verified 12/25/24 03:31 Review of Systems 2 Constitutional: Constitutional: Reports no additional constitutional complaints, Denies chills, Denies fever(s) and Denies night sweats Eyes: Eyes: Reports no additional eye complaints, Denies blurry vision, Denies change in vision, Denies diplopia, Denies eye discharge, Denies loss of vision and Denies eye pain ENT: Denies dizziness Cardiovascular: Cardiovascular: Reports no additional cardiovascular complaints, Reports chest pain (after drinking coffee on 12/24/2024 but now resolved.), Denies lightheadedness, Denies Loss of Consciousness and Reports dyspnea (that awoke him - now resolved.) Respiratory: Respiratory: Reports no additional respiratory complaints and Reports dyspnea (that awoke him - now resolved.) Gastrointestinal: Gastrointestinal: Reports no additional gastrointestinal complaints, Denies abdominal pain, Denies melena, Denies hematochezia, Denies change in bowel habits and Denies change in stool character Genitourinary: Genitourinary: Reports no additional male genitourinary complaints, Denies hematuria, Denies oliguria, Denies difficulty urinating, Denies dysuria, Denies urinary frequency, Denies urinary hesitancy, Denies urinary incontinence and Denies urinary urgency Musculoskeletal: Musculoskeletal: Reports no additional musculoskeletal complaints, Denies numbness and Denies tingling Neurologic: Denies dizziness, Denies loss of vision, Denies numbness and Denies tingling Psychiatric: Psychiatric: Reports no additional psychiatric complaints Endocrine: Endocrine: Reports polyphagia, Reports polydipsia and Reports polyuria Hematologic/Lymphatic: Hematologic/Lymphatic: Reports no additional hematologic/lymphatic complaints Allergic/Immunologic: Allergic/Immunologic: Reports no additional allergic/immunologic complaints PMFSH Past Medical History Attestation statement: The following information was validated with the patient. (all information validated with the patient's partner) Source: old records reviewed, nursing notes reviewed and other (patient's partner provided additional history and confirmed the history provided by the patient.) Medical History Erectile dysfunction Elevated LFTs Lumbar spondylosis Impaired fasting glucose Vitamin D deficiency Pure hypercholesterolemia Obesity (BMI 30-39.9) Anxiety Renal calculi Surgical History Hx of appendectomy (~1994) Hx laparoscopic cholecystectomy (~2007) Family History Family History Father No problems noted. Mother No problems noted. Social History Social History Housing: Apartment Alcohol intake: current Alcohol intake frequency: holidays/special occasions only Patient Tobacco Use Status: Current everyday Tobacco user Tobacco use type: Cigarette Cigarette Packs Per Day: 0.5 Cigarettes Per Day: 6 Smoked in Last 30 Days: No e-Cigarette/Vaping Use: Never Used Second Hand Smoke Exposure: Yes Use of substances other than those prescribed or required for medical reasons: No Advance Directives: No Advance Directives Information Provided: Yes Do you have a plan to hurt others: No Plan service: No Current occupational status: employed Current occupational exposures/hazards: No Cognitive needs: No Hearing needs: No Vision needs: No Physical Exam ED Vital Signs: Vital Signs - 24 hr 12/25/24 04:10 12/25/24 06:15 12/25/24 08:20 Temperature 98.2 F 97.9 F 97.9 F Pulse Rate 84 74 93 Respiratory Rate 18 16 16 Blood Pressure 115/62 110/53 L 110/62 Pulse Oximetry 95 98 95 Oxygen Delivery Method Room Air Room Air Room Air 12/25/24 09:50 12/25/24 10:19 Temperature 97.9 F 98.3 F Pulse Rate 93 86 Respiratory Rate 16 16 Blood Pressure 110/62 119/80 Pulse Oximetry 95 96 Oxygen Delivery Method Room Air Room Air BMI result Body Mass Index 34.7 Const General: cooperative, no acute distress, alert and awake Nutritional Appearance: obese Orientation/consciousness: patient oriented x3 Limitations: no limitations HENMT Head: Yes normal to inspection and Yes atraumatic Ears: hearing grossly normal bilaterally and external ears normal General nose exam: Normal external nose present, no nasal discharge noted and no epistaxis Face and sinus: Yes normal facial exam, No abrasion and No laceration Mouth: Normal oral and palatal mucosa present, no drooling and no muffled voice Eyes General: appearance normal, both eyes and all related structures Periorbital: periorbital findings normal Eyelids: Yes eyelids normal Conjunctivae: conjunctivae normal Pupils: Equal, round and reactive pupils present EOM: EOMs intact bilaterally Neck Neck: Yes normal visual inspection, Yes full ROM and Yes no lymphadenopathy Chest Chest palpation & inspection: normal inspection of the chest Resp Effort & Inspection: normal respiratory effort and able to speak in complete sentences GI Inspection: Yes normal to inspection Neuro General: patient oriented x3, moves all extremities and CN's II-XI intact bilaterally Cranial nerves: Yes Equal, round and reactive pupils present Cognition (Neuro): normal cognition Extrem General: Yes normal to inspection, Yes full ROM and Yes capillary refill normal Psych Appearance: grossly normal Mental Status: mental status grossly normal Affect: normal affect Attitude: cooperative Thought process: Normal thought process present Thought content: Normal thought content present Insight: Good insight present (Psych) Medications Administered Discontinued Medications Generic Name Dose Route Start Last Admin Trade Name Freq PRN Reason Stop Dose Admin Lactated Ringer's 1,000 mls @ 999 mls/hr 12/25/24 07:15 12/25/24 08:19 Lr IV 12/25/24 08:15 Infused .Q1H1M MARTHA Infusion Lactated Ringer's 1,000 mls @ 999 mls/hr 12/25/24 08:15 12/25/24 09:19 Lr IV 12/25/24 09:15 Infused .Q1H1M MARTHA Infusion Medical Decision Making Medical Decision Making MDM Narrative: Patient is a 54 year old assigned male at with a history of anxiety, kidney stones, and BPH presenting to the emergency department today after waking up in a panic with shortness of breath. Patient's physical exam was unremarkable. Patient's blood work showed an elevated BS of 444 and a hgb a1c of 6.8. Patient's urine showed glucose but no infection. Patient's EKG was unremarkable. Patient's chest x-ray showed no acute process. I spoke with the patient's primary care team who recommended starting the patient on 500mg of ER Metformin BID and they'll follow up with him on an outpatient basis. Patient's clinical presentation is most consistent with a sleep apnea apneic episode startling him awake and incidental finding of new onset diabetes. I explained my physical exam findings as well as all test results to the patient and the patient's partner. I answered all questions asked by the patient and the patient's partner. Patient received 2 liters of LR which decreased his sugar to 286. I stressed the importance of the patient taking his medication as directed (either prescribed or as the over the counter packaging recommends). I stressed the importance of the patient following up with his primary care provider and the neuro/sleep group for a sleep study and evaluation of possible DAVID. I stressed the importance of the patient returning to the emergency department immediately if his symptoms were to worsen or if he were to develop any dizziness, shortness of breath, difficulty breathing, chest pain, blurry vision, loss of vision, nausea, vomiting, abdominal pain, fever, chills, back pain, or any other complaints. Patient and the patient's partner verbalized agreement and understanding with this treatment plan and discharge. Differential Diagnosis Differential Diagnoses: The differential diagnosis associated with the presentation includes Episode of apnea secondary to DAVID New onset diabetes NSTEMI STEMI Admission/Observation Consideration of admission/observation: Escalation of care including admission/observation considered Patient would have been admitted to the hospital had his work up had any findings where hospital admission was appropriate and his clinical presentation warranted hospital admission. Consult Healthcare Provider Management of the patient was discussed with: Topographical Drafter (spoke with the patient's primary care team as noted in the MDM Rationale portion of this note.) Lab Data [facility] Lab Attestation statement: I reviewed the patient's lab results. My interpretation of these results are in the MDM Rationale portion of this note. 12/25/24 03:56 12/25/24 03:56 Labs: Lab Results 12/25/24 12/25/24 12/25/24 Range/Units 03:56 03:57 04:29 WBC 4.8 (4.8-10.8) X10*3/uL RBC 4.93 (4.60-5.80) X10*6/uL Hgb 15.3 (14.0-18.0) g/dl Hct 43.5 (42.0-52.0) % MCV 88.2 (80.0-98.0) fL MCH 31.0 (27.0-33.0) pg MCHC 35.2 (31.0-36.0) g/dl RDW 11.0 (11.0-16.0) % Plt Count 152 L (160-400) X10*3/uL MPV 10.0 (9.4-12.4) fL Immature Gran % (Auto) 0.4 (0.0-0.4) % Neut % (Auto) 53.7 (45-73) % Lymph % (Auto) 34.3 (20-40) % [place] % (Auto) 7.5 (2-11) % Eos % (Auto) 3.3 (0-4) % Baso % (Auto) 0.8 (0-2) % Lymph # (Auto) 1.7 (1.2-4.9) X10*3/uL [place] # (Auto) 0.4 (0.1-1.2) X10*3/uL Eos # (Auto) 0.2 (0.0-0.4) X10*3/uL Baso # (Auto) 0.0 (0.0-0.2) X10*3/uL Abs Immat Gran (auto) 0.02 (0.00-0.03) X10*3/uL Absolute Neuts (auto) 2.6 (2.0-8.3) x10*3/uL Absolute Nucleated RBC 0.000 (0.0-0.012) X10*3/uL Nucleated RBC % (auto) 0.0 (0.0-0.2) /100WBC Hold Blue Top SEE NOTE VBG pH (7.32-7.43) VBG pCO2 mmHg VBG pO2 mmHg VBG HCO3 (22-26) mmol/L VBG O2 Saturation % VBG Base Excess mmol/L Sodium 136 (135-145) mmol/L Potassium 4.0 (3.3-5.1) mmol/L Chloride 101 (96-108) mmol/L Carbon Dioxide 25 (22-29) mmol/L Anion Gap 14 (12-20) BUN 15 (9-16) mg/dL Creatinine 1.20 (0.5-1.4) mg/dL Estim Creat Clear Calc 85.6 Estimated GFR > 60 POC Glucose 415 H* (60-115) mg/dL Random Glucose 444 H* (60-115) mg/dL Estimat Average Glucose mg/dL Hemoglobin A1c % (<6.0) % Calcium 9.3 (8.4-10.2) mg/dL Magnesium 2.0 (1.6-2.6) mg/dL Total Bilirubin 0.5 (0.0-1.0) mg/dL Direct Bilirubin 0.2 (0.0-0.5) mg/dL AST 34 (5-37) U/L ALT 106 H (0-40) U/L Alkaline Phosphatase 98 (39-117) U/L Troponin I High Sens < 2.7 (<3.5-35.0) ng/L B-Natriuretic Peptide < 10 (<100) pg/mL Total Protein 7.8 (6.5-8.0) g/dL Albumin 4.0 (3.5-5.0) g/dL Beta-Hydroxybutyrate (0.02-0.27) mmol/L Urine Color Urine Appearance Urine pH (5.0-9.0) Ur Specific [place] (1.005-1.025) Urine Protein (Neg-Trace) mg/dL Urine Glucose (UA) (Negative) mg/dL Urine Ketones (Negative) mg/dL Urine Blood (Negative) Urine Nitrite (Negative) Ur Leukocyte Esterase (Negative) Urine RBC (0-2) /HPF Urine WBC (0-5) /HPF Ur Squamous Epith Cells (0-2) /HPF Urine Bacteria (None Seen) Hyaline Casts (0-2) /LPF Influenza Type A (PCR) NEGATIVE (Negative) Influenza Type B (PCR) NEGATIVE (Negative) RSV RNA Qual (PCR) NEGATIVE (Negative) SARS-CoV-2 RNA (RT-PCR) NEGATIVE (Negative) S. pyogenes GrpA BJ Negative (Negative) 12/25/24 12/25/24 12/25/24 Range/Units 04:53 07:18 08:08 WBC (4.8-10.8) X10*3/uL RBC (4.60-5.80) X10*6/uL Hgb (14.0-18.0) g/dl Hct (42.0-52.0) % MCV (80.0-98.0) fL MCH (27.0-33.0) pg MCHC (31.0-36.0) g/dl RDW (11.0-16.0) % Plt Count (160-400) X10*3/uL MPV (9.4-12.4) fL Immature Gran % (Auto) (0.0-0.4) % Neut % (Auto) (45-73) % Lymph % (Auto) (20-40) % [place] % (Auto) (2-11) % Eos % (Auto) (0-4) % Baso % (Auto) (0-2) % Lymph # (Auto) (1.2-4.9) X10*3/uL [place] # (Auto) (0.1-1.2) X10*3/uL Eos # (Auto) (0.0-0.4) X10*3/uL Baso # (Auto) (0.0-0.2) X10*3/uL Abs Immat Gran (auto) (0.00-0.03) X10*3/uL Absolute Neuts (auto) (2.0-8.3) x10*3/uL Absolute Nucleated RBC (0.0-0.012) X10*3/uL Nucleated RBC % (auto) (0.0-0.2) /100WBC Hold Blue Top VBG pH 7.43 (7.32-7.43) VBG pCO2 42 mmHg VBG pO2 84 mmHg VBG HCO3 28 H (22-26) mmol/L VBG O2 Saturation 98.0 % VBG Base Excess 3.9 mmol/L Sodium (135-145) mmol/L Potassium (3.3-5.1) mmol/L Chloride (96-108) mmol/L Carbon Dioxide (22-29) mmol/L Anion Gap (12-20) BUN (9-16) mg/dL Creatinine (0.5-1.4) mg/dL Estim Creat Clear Calc Estimated GFR POC Glucose 323 H (60-115) mg/dL Random Glucose (60-115) mg/dL Estimat Average Glucose 148 mg/dL Hemoglobin A1c % 6.8 H (<6.0) % Calcium (8.4-10.2) mg/dL Magnesium (1.6-2.6) mg/dL Total Bilirubin (0.0-1.0) mg/dL Direct Bilirubin (0.0-0.5) mg/dL AST (5-37) U/L ALT (0-40) U/L Alkaline Phosphatase (39-117) U/L Troponin I High Sens < 2.7 (<3.5-35.0) ng/L B-Natriuretic Peptide (<100) pg/mL Total Protein (6.5-8.0) g/dL Albumin (3.5-5.0) g/dL Beta-Hydroxybutyrate 0.09 (0.02-0.27) mmol/L Urine Color Yellow Urine Appearance Clear Urine pH 5.5 (5.0-9.0) Ur Specific [place] >= 1.030 H (1.005-1.025) Urine Protein Negative (Neg-Trace) mg/dL Urine Glucose (UA) >=1000 H (Negative) mg/dL Urine Ketones Negative (Negative) mg/dL Urine Blood Negative (Negative) Urine Nitrite Negative (Negative) Ur Leukocyte Esterase Negative (Negative) Urine RBC 0-2 (0-2) /HPF Urine WBC 0-5 (0-5) /HPF Ur Squamous Epith Cells 0-2 (0-2) /HPF Urine Bacteria None Seen (None Seen) Hyaline Casts 0-2 (0-2) /LPF Influenza Type A (PCR) (Negative) Influenza Type B (PCR) (Negative) RSV RNA Qual (PCR) (Negative) SARS-CoV-2 RNA (RT-PCR) (Negative) S. pyogenes GrpA BJ (Negative) 12/25/24 Range/Units 09:14 WBC (4.8-10.8) X10*3/uL RBC (4.60-5.80) X10*6/uL Hgb (14.0-18.0) g/dl Hct (42.0-52.0) % MCV (80.0-98.0) fL MCH (27.0-33.0) pg MCHC (31.0-36.0) g/dl RDW (11.0-16.0) % Plt Count (160-400) X10*3/uL MPV (9.4-12.4) fL Immature Gran % (Auto) (0.0-0.4) % Neut % (Auto) (45-73) % Lymph % (Auto) (20-40) % [place] % (Auto) (2-11) % Eos % (Auto) (0-4) % Baso % (Auto) (0-2) % Lymph # (Auto) (1.2-4.9) X10*3/uL [place] # (Auto) (0.1-1.2) X10*3/uL Eos # (Auto) (0.0-0.4) X10*3/uL Baso # (Auto) (0.0-0.2) X10*3/uL Abs Immat Gran (auto) (0.00-0.03) X10*3/uL Absolute Neuts (auto) (2.0-8.3) x10*3/uL Absolute Nucleated RBC (0.0-0.012) X10*3/uL Nucleated RBC % (auto) (0.0-0.2) /100WBC Hold Blue Top VBG pH (7.32-7.43) VBG pCO2 mmHg VBG pO2 mmHg VBG HCO3 (22-26) mmol/L VBG O2 Saturation % VBG Base Excess mmol/L Sodium (135-145) mmol/L Potassium (3.3-5.1) mmol/L Chloride (96-108) mmol/L Carbon Dioxide (22-29) mmol/L Anion Gap (12-20) BUN (9-16) mg/dL Creatinine (0.5-1.4) mg/dL Estim Creat Clear Calc Estimated GFR POC Glucose 286 H (60-115) mg/dL Random Glucose (60-115) mg/dL Estimat Average Glucose mg/dL Hemoglobin A1c % (<6.0) % Calcium (8.4-10.2) mg/dL Magnesium (1.6-2.6) mg/dL Total Bilirubin (0.0-1.0) mg/dL Direct Bilirubin (0.0-0.5) mg/dL AST (5-37) U/L ALT (0-40) U/L Alkaline Phosphatase (39-117) U/L Troponin I High Sens (<3.5-35.0) ng/L B-Natriuretic Peptide (<100) pg/mL Total Protein (6.5-8.0) g/dL Albumin (3.5-5.0) g/dL Beta-Hydroxybutyrate (0.02-0.27) mmol/L Urine Color Urine Appearance Urine pH (5.0-9.0) Ur Specific [place] (1.005-1.025) Urine Protein (Neg-Trace) mg/dL Urine Glucose (UA) (Negative) mg/dL Urine Ketones (Negative) mg/dL Urine Blood (Negative) Urine Nitrite (Negative) Ur Leukocyte Esterase (Negative) Urine RBC (0-2) /HPF Urine WBC (0-5) /HPF Ur Squamous Epith Cells (0-2) /HPF Urine Bacteria (None Seen) Hyaline Casts (0-2) /LPF Influenza Type A (PCR) (Negative) Influenza Type B (PCR) (Negative) RSV RNA Qual (PCR) (Negative) SARS-CoV-2 RNA (RT-PCR) (Negative) S. pyogenes GrpA BJ (Negative) Independent Interpretation I performed an independent interpretation of an: EKG and Plain X-Ray Interpretation: My interpretation is in agreement with the radiologist's impression of this imaging study. L CLINICAL HISTORY: sob chest pressure 1 view chest x-ray. Comparison: None Findings: The lungs appear clear. There is no consolidation, effusion, or pneumothorax. Cardiomediastinal silhouette is within normal limits. IMPRESSION: No acute cardiopulmonary abnormality. This document has been electronically signed by: Adam Murillo MD on 12/25/2024 04:31:33 Dictated By: Adam Murillo MD Signed By: Electronically signed by Adam Murillo MD 12/25/24 0432 I independently interpreted this EKG and am in agreement with the below findings: Vent. Rate: 82 BPM Atrial Rate: 82 BPM P-R Int: 148 ms QRS Dur: 90 ms QT Int: 384 ms P-R-T Axes: 28 -26 34 degrees QTcB Int: 448 ms Normal sinus rhythm Normal ECG When compared with ECG of 11-Mar-2023 03:12, QRS axis Shifted left DD/ 0350 Radiology Impression Discussion of test interpretation with radiology: I have reviewed the radiologist's reading. Independent Historian Clinical information obtained from an independent historian. History obtained from or confirmed by: Other (patient's partner provided additional history and confirmed the history provided by the patient.) Prescription Management I considered prescription management with: Other (Metformin) Chronic Conditions Patient?s care impacted by: Diabetes Discharge Plan Discharge Clinical Impression: Diabetes mellitus, new onset Patient Disposition: Home, Self-Care Instructions: Type 2 Diabetes in Adults: New Diagnosis (DC), Diabetes and Nutrition (ED), Diabetes and Exercise (ED) Additional Instructions: Your clinical presentation is most consistent with sleep apnea. However, during your work up, we determined you have new onset type 2 diabetes. You are being prescribed Metformin for your diabetes and should take this medication as directed. Follow up with your primary care provider about our concern for sleep apnea as well as the new diabetes diagnosis. Follow up with the sleep/neuro office for our concerns of you having sleep apnea. Return to the emergency department immediately if your symptoms worsen or if you develop any dizziness, shortness of breath, difficulty breathing, chest pain, blurry vision, loss of vision, nausea, vomiting, abdominal pain, fever, chills, back pain, or any other complaints. Roth presentaci?n cl?laverne es m?s consistente con la apnea del shilpa?o. Sin embargo, stephanie roth evaluaci?n, hemos determinado que tiene diabetes tipo 2 de reciente aparici?n. Se le hein recetado metformina para la diabetes y debe pancho anya medicamento seg?n las indicaciones. Hable con roth m?dico de cabecera sobre nuestra preocupaci?n por la apnea del shilpa?o y el nuevo diagn?stico de diabetes. Consulte con la consulta de shilpa?o/neuro por nuestra preocupaci?n de que tenga apnea del shilpa?o. Acuda inmediatamente al servicio de urgencias si ryan s?ntomas empeoran o si presenta mareos, falta de aliento, dificultad para respirar, dolor tor?cico, visi?n borrosa, p?rdida de visi?n, n?useas, v?mitos, dolor abdominal, fiebre, escalofr?os, dolor de espalda o cualquier otra molestia. Prescriptions: New metformin 500 mg tablet extended release 24 hr 500 mg PO BID Qty: 60 0RF No Action tadalafil 5 mg tablet 5 mg PO DAILY PRN (Reason: sexual activity) Qty: 30 0RF (DME) blood-glucose meter [FreeStyle [place] Lite] Kit See Rx Instructions .Route Qty: 1 0RF Rx Instructions: As directed (DME) FreeStyle Lite Strips Strip See Rx Instructions .Route Qty: 100 0RF Rx Instructions: As directed (DME) lancets [2-In-1 Lancet Device] 30 gauge misc See Rx Instructions .Route Qty: 100 0RF Rx Instructions: As directed alcohol swabs [Alcohol Pads] Pads, Medicated 1 pad topical TIDWMEAL Qty: 100 0RF cholecalciferol (vitamin D3) 50 mcg (2,000 unit) capsule 50 mcg PO DAILY 90 Days Qty: 90 3RF bisacodyl [Dulcolax (bisacodyl)] 5 mg tablet,delayed release (DR/EC) 20 mg PO ONCE 1 Days Qty: 4 0RF Rx Instructions: take 4 tabs at noon the day before your colonoscopy polyethylene glycol 3350 [Miralax] 17 gram/dose powder 238 g PO ONCE Qty: 238 0RF Rx Instructions: As directed by gastroenterology department at [facility] Referrals: [facility] Neuro/Sleep [Provider Group] (Call to establish and follow up with the neurology / sleep group for possible sleep study and concerns of sleep apnea. Llamada para establecer y seguir con el adam de neurolog?a / shilpa?o para posible estudio del shilpa?o y preocupaciones de apnea del shilpa?o. ) Codey Raygoza MD [Physician] - (Follow up with your PCP about your possible sleep apnea and your new diabetes. Kade un seguimiento con roth m?dico de cabecera sobre roth posible apnea del shilpa?o y roth nueva diabetes. ) Interventions: ED Discharge Assessment Last Done: 12/25/24 09:50 Discharge Date/Time: 12/25/24 10:22 Print Language: British
[2024-12-25] MEDS: Lactated Ringers 1,000 ML 999 ML IV ×2 (07:16→08:18)
--- NOTE | 2024-12-25 07:18 | PC.NURSE ---
repeat labs obtained/sent to lab. IVF infusing per provider order. will reassess POC s/p IVF bolus. pt otherwise remains in no respiratory distress. on RA w/o difficulty. no sob/wob noted. respirations even/unlabored. plan of care ongoing.
[2024-12-25 07:29] LABS: Venous Blood Gas Refer to POC result
[2024-12-25 07:44] LABS: Beta-Hydroxybutyrate 0.09 mmol/L (0.02-0.27)
[2024-12-25 07:46] LABS: VBG pCO2 42 mmHg; VBG pH 7.43 (7.32-7.43)
[2024-12-25 07:47] LABS: VBG Base Excess 3.9 mmol/L; VBG HCO3 28 mmol/L (22-26); VBG pO2 84 mmHg
[2024-12-25 07:50] LABS: Estimated Average Glucose 148 mg/dL; Hemoglobin A1c % 6.8 % (<6.0)
[2024-12-25 08:04] LABS: Troponin-I High Sensitivity < 2.7 ng/L (<3.5-35.0)
[2024-12-25 08:14] LABS: Glucose, Whole Blood 323 mg/dL (60-115)
--- NOTE | 2024-12-25 08:19 | PC.NURSE ---
repeat POC obtained displaying 323mg/dL s/p IVF bolus. provider notified/aware. addition liter of LR infusing at this time. will reassess POC s/p 2nd bolus.
[2024-12-25 08:20] VITALS: BP 110/62; PULSE 93; RESP 16; TEMP 36.6; O2SAT 95
[2024-12-25 09:18] LABS: Glucose, Whole Blood 286 mg/dL (60-115)
[2024-12-25 09:50] VITALS: BP 110/62; PULSE 93; RESP 16; TEMP 36.6; O2SAT 95
[2024-12-25 10:19] VITALS: BP 119/80; PULSE 86; RESP 16; TEMP 36.8; O2SAT 96
== END 2024-12-25 10:22 | disposition home or self-care (01) ==
PROVIDERS: Physician Assistant Medical; Emergency Provider Emergency Medicine
DX: E11.9 Type 2 diabetes mellitus without complications (principal); R06.02 Shortness of breath; E78.00 Pure hypercholesterolemia, unspecified; F17.210 Nicotine dependence, cigarettes, uncomplicated; Z03.818 Encounter for observation for suspected exposure to other biological agents ruled out
CPT/HCPCS: 0241U; 36415; 71045; 80053; 81001; 82010; 82248; 82803; 82947; 83036; 83735; 83880; 84484; 85025; 87651; 93005; 96360; 96361; 99284; 99285; J7120

== ENCOUNTER → 2024-12-25 03:50 | Outpatient (BNV) | payer OTHER, SELFPAY | PROVIDERS: Emergency Provider Emergency Medicine; Visit Provider Internal Medicine Cardiovascular Disease | DX: R06.02 Shortness of breath (principal); R07.9 Chest pain, unspecified | CPT/HCPCS: 93010 ==

== ENCOUNTER → 2024-12-25 03:50 | Outpatient (BNV) | payer OTHER, SELFPAY | PROVIDERS: Visit Provider Radiology Diagnostic Radiology | DX: R06.02 Shortness of breath (principal) | CPT/HCPCS: 71045 ==

== ENCOUNTER 2025-05-10 19:56 | Emergency (ER) | payer OTHER, SELFPAY ==
--- NOTE | ~2025-05-10 | XR_ITS ---
CLINICAL HISTORY: weakness 2 view chest x-ray. Comparison: 12/25/2024 Findings: No consolidation. Heart size normal No acute fracture. Impression: Lungs are clear. This document has been electronically signed by: Rogelio Dos Santos MD on 05/10/2025 21:12:13
[2025-05-10 20:16] VITALS: BP 104/62; PULSE 83; RESP 16; TEMP 36.3; O2SAT 94; BMI 36.1
--- NOTE | 2025-05-10 20:19 | ECG_ITS ---
Test Reason : WEAKNESS Blood Pressure : */* mmHG Vent. Rate : 70 BPM Atrial Rate : 70 BPM P-R Int : 140 ms QRS Dur : 86 ms QT Int : 410 ms P-R-T Axes : 31 -26 12 degrees QTcB Int : 442 ms Normal sinus rhythm Normal ECG When compared with ECG of 25-Dec-2024 03:50, No significant change was found Referred By: Isidoro Gayle Electronically Signed By: FABIOLA HERNADEZ
--- NOTE | 2025-05-10 20:19 | ED.GENADULT ---
HPI - General Adult General Chief complaint: General Medical Stated complaint: diabetic bp high/ dizzy, pain everywhere Time Seen by Provider: 05/10/25 20:52 Source: patient Mode of arrival: ambulatory Limitations: no limitations History of Present Illness ED Provider: HPI narrative: Patient's history of diabetes for last 8 months took metformin only for 2 months has not taken any medication for last 5 months noted to have his blood sugar elevated especially for last 2 days in 400 range today was 522 patient's feel weak tired body ache police mucoid air polydipsia after arrival patient's blood sugar was 233 patient did not take any medication or had any fluids prior to arrival Related Data Previous Rx's ?Medication ?Instructions ?Recorded cholecalciferol (vitamin D3) 50 50 mcg PO DAILY 90 days #90 caps 05/12/24 mcg (2,000 unit) capsule bisacodyl 5 mg tablet,delayed 20 mg (4 x 5 mg) PO ONCE 1 day #4 08/15/24 release (Dulcolax (bisacodyl)) tabs polyethylene glycol 3350 17 238 g PO ONCE #238 grams 08/15/24 gram/dose oral powder (Miralax) tadalafil 5 mg tablet 5 mg PO DAILY PRN sexual activity 10/27/24 #30 tabs alcohol swabs (Alcohol Pads) 1 pad topical TIDWMEAL #100 ea 12/25/24 blood sugar diagnostic (FreeStyle #100 ea 12/25/24 Lite Strips) lancets 30 gauge (2-In-1 Lancet #100 ea 12/25/24 Device) metformin 500 mg tablet,extended 500 mg PO BID #60 tabs 12/25/24 release 24 hr blood-glucose meter (FreeStyle #1 kit 01/05/25 [place] Lite kit) empagliflozin 10 mg tablet 10 mg PO QAM #30 tabs 05/10/25 (Jardiance) Allergies Allergy/AdvReac Type Severity Reaction Status Date / Time No Known Allergies Allergy Verified 05/10/25 20:21 Review of Systems Review of Systems: Yes all other systems are reviewed and are negative [facility] Past Medical History Medical History Erectile dysfunction Elevated LFTs Lumbar spondylosis Impaired fasting glucose Vitamin D deficiency Pure hypercholesterolemia Obesity (BMI 30-39.9) Anxiety Renal calculi Surgical History Hx of appendectomy (~1994) Hx laparoscopic cholecystectomy (~2007) Family History Family History Father No problems noted. Mother No problems noted. Social History Social History Housing: Apartment Alcohol intake: current Alcohol intake frequency: holidays/special occasions only Patient Tobacco Use Status: Current everyday Tobacco user Tobacco use type: Cigarette Cigarette Packs Per Day: 0.5 Cigarettes Per Day: 6 Smoked in Last 30 Days: No e-Cigarette/Vaping Use: Never Used Second Hand Smoke Exposure: Yes Advance Directives: No Advance Directives Information Provided: No Do you have a plan to hurt others: No Plan service: No Current occupational status: employed Current occupational exposures/hazards: No Cognitive needs: No Hearing needs: No Vision needs: No Physical Exam ED Vital Signs: Vital Signs - 24 hr 05/10/25 20:16 05/10/25 23:22 Temperature 97.3 F 98 F Pulse Rate 83 77 Respiratory Rate 16 16 Blood Pressure 104/62 110/65 Pulse Oximetry 94 98 Oxygen Delivery Method Room Air Room Air BMI result Body Mass Index 36.1 Appearance: Alert. Oriented X3. No acute distress. Eyes: PERRLA, No Nystagmus ENT: Pharynx normal. Oral Mucosa moist Neck: Normal inspection. Neck supple. CVS: Normal heart rate and rhythm. Pulses normal. Respiratory: No respiratory distress. Equal air entry bilateral, no wheezing/rales/rhonchi Abdomen: Soft and nontender. Bowel sounds are present, no mass palpable, no CVA tenderness Skin: Skin warm and dry. Normal skin color. Normal skin turgor. Extremities: No lower extremity edema. No calf tenderness Neuro: Oriented X 3. No motor deficit. No sensory deficit.No cerebellar signs , cranial nerves II-XII intact Course Course Course Narrative: Medical screening exam performed. Please refer to detailed history, exam, evaluation, and management by primary provider. 54-year-old male with a history of diabetes, ran out of his diabetic medication, reporting that he is feeling unwell, nauseous, glucose noted to be 522 at home. Labs ordered. Medications Administered Discontinued Medications Generic Name Dose Route Start Last Admin Trade Name Amy PRN Reason Stop Dose Admin Sodium Chloride 1,000 mls @ 999 mls/hr 05/10/25 21:23 05/10/25 21:57 Ns IV 05/10/25 22:23 999 mls/hr .Q1H1M ONE Administration Insulin Human Lispro 5 unit 05/10/25 21:24 05/10/25 21:58 Insulin Lispro 100 Unit/Ml 3 Ml Vial SUBCUT 05/10/25 21:25 5 unit ONCE ONE Administration Medical Decision Making Medical Decision Making [facility] Narrative: Patient is type 2 diabetes noncompliant to his medication has not any medication for last 5 months noted to with hyperglycemic patient does not like the side effects of metformin which was given before will start patient on Jardiance and advised to follow up with chiropractic doctor/PCP patient has had no signs of infection incidentally had lactic acid elevation of 2.9 Differential Diagnosis Differential Diagnoses: The differential diagnosis associated with the presentation includes Lab Data [facility] Lab Attestation statement: I reviewed the patient's lab results. 05/10/25 20:55 05/10/25 20:56 Labs: Lab Results 05/10/25 05/10/25 05/10/25 Range/Units 20:55 20:56 21:00 WBC 4.4 L (4.8-10.8) X10*3/uL RBC 4.81 (4.60-5.80) X10*6/uL Hgb 15.0 (14.0-18.0) g/dl Hct 43.6 (42.0-52.0) % MCV 90.6 (80.0-98.0) fL MCH 31.2 (27.0-33.0) pg MCHC 34.4 (31.0-36.0) g/dl RDW 11.3 (11.0-16.0) % Plt Count 155 L (160-400) X10*3/uL MPV 10.4 (9.4-12.4) fL Immature Gran % (Auto) 0.2 (0.0-0.4) % Neut % (Auto) 53.3 (45-73) % Lymph % (Auto) 34.4 (20-40) % [place] % (Auto) 8.7 (2-11) % Eos % (Auto) 2.5 (0-4) % Baso % (Auto) 0.9 (0-2) % Lymph # (Auto) 1.5 (1.2-4.9) X10*3/uL [place] # (Auto) 0.4 (0.1-1.2) X10*3/uL Eos # (Auto) 0.1 (0.0-0.4) X10*3/uL Baso # (Auto) 0.0 (0.0-0.2) X10*3/uL Abs Immat Gran (auto) 0.01 (0.00-0.03) X10*3/uL Absolute Neuts (auto) 2.3 (2.0-8.3) x10*3/uL Absolute Nucleated RBC 0.000 (0.0-0.012) X10*3/uL Nucleated RBC % (auto) 0.0 (0.0-0.2) /100WBC VBG pH 7.31 L (7.32-7.43) VBG pCO2 62 mmHg VBG pO2 54 mmHg VBG HCO3 32 H (22-26) mmol/L VBG O2 Saturation 79.0 % VBG Base Excess 4.0 mmol/L Sodium 143 (135-145) mmol/L Potassium 3.6 (3.3-5.1) mmol/L Chloride 105 (96-108) mmol/L Carbon Dioxide 27 (22-29) mmol/L Anion Gap 15 (12-20) BUN 17 H (9-16) mg/dL Creatinine 1.11 (0.5-1.4) mg/dL Estim Creat Clear Calc 94.5 Estimated GFR > 60 POC Glucose (60-115) mg/dL Random Glucose 236 H (60-115) mg/dL Lactic Acid 2.9 H* (0.5-2.0) mmol/L Calcium 8.8 (8.4-10.2) mg/dL Total Bilirubin 0.5 (0.0-1.0) mg/dL AST 49 H (5-37) U/L ALT 139 H (0-40) U/L Alkaline Phosphatase 91 (39-117) U/L Total Protein 7.2 (6.5-8.0) g/dL Albumin 4.1 (3.5-5.0) g/dL Lipase 20 (8-78) U/L Beta-Hydroxybutyrate 0.14 (0.02-0.27) mmol/L Urine Color Urine Appearance Urine pH (5.0-9.0) Ur Specific Irons (1.005-1.025) Urine Protein (Neg-Trace) mg/dL Urine Glucose (UA) (Negative) mg/dL Urine Ketones (Negative) mg/dL Urine Blood (Negative) Urine Nitrite (Negative) Ur Leukocyte Esterase (Negative) Urine RBC (0-2) /HPF Urine WBC (0-5) /HPF Ur Squamous Epith Cells (0-2) /HPF Urine Bacteria (None Seen) Hyaline Casts (0-2) /LPF 05/10/25 05/10/25 Range/Units 21:11 22:04 WBC (4.8-10.8) X10*3/uL RBC (4.60-5.80) X10*6/uL Hgb (14.0-18.0) g/dl Hct (42.0-52.0) % MCV (80.0-98.0) fL MCH (27.0-33.0) pg MCHC (31.0-36.0) g/dl RDW (11.0-16.0) % Plt Count (160-400) X10*3/uL MPV (9.4-12.4) fL Immature Gran % (Auto) (0.0-0.4) % Neut % (Auto) (45-73) % Lymph % (Auto) (20-40) % [place] % (Auto) (2-11) % Eos % (Auto) (0-4) % Baso % (Auto) (0-2) % Lymph # (Auto) (1.2-4.9) X10*3/uL [place] # (Auto) (0.1-1.2) X10*3/uL Eos # (Auto) (0.0-0.4) X10*3/uL Baso # (Auto) (0.0-0.2) X10*3/uL Abs Immat Gran (auto) (0.00-0.03) X10*3/uL Absolute Neuts (auto) (2.0-8.3) x10*3/uL Absolute Nucleated RBC (0.0-0.012) X10*3/uL Nucleated RBC % (auto) (0.0-0.2) /100WBC VBG pH (7.32-7.43) VBG pCO2 mmHg VBG pO2 mmHg VBG HCO3 (22-26) mmol/L VBG O2 Saturation % VBG Base Excess mmol/L Sodium (135-145) mmol/L Potassium (3.3-5.1) mmol/L Chloride (96-108) mmol/L Carbon Dioxide (22-29) mmol/L Anion Gap (12-20) BUN (9-16) mg/dL Creatinine (0.5-1.4) mg/dL Estim Creat Clear Calc Estimated GFR POC Glucose 233 H (60-115) mg/dL Random Glucose (60-115) mg/dL Lactic Acid (0.5-2.0) mmol/L Calcium (8.4-10.2) mg/dL Total Bilirubin (0.0-1.0) mg/dL AST (5-37) U/L ALT (0-40) U/L Alkaline Phosphatase (39-117) U/L Total Protein (6.5-8.0) g/dL Albumin (3.5-5.0) g/dL Lipase (8-78) U/L Beta-Hydroxybutyrate (0.02-0.27) mmol/L Urine Color Yellow Urine Appearance Clear Urine pH 6.0 (5.0-9.0) Ur Specific Irons >= 1.030 H (1.005-1.025) Urine Protein Negative (Neg-Trace) mg/dL Urine Glucose (UA) >=1000 H (Negative) mg/dL Urine Ketones Trace (Negative) mg/dL Urine Blood Negative (Negative) Urine Nitrite Negative (Negative) Ur Leukocyte Esterase Negative (Negative) Urine RBC 0-2 (0-2) /HPF Urine WBC 0-5 (0-5) /HPF Ur Squamous Epith Cells 0-2 (0-2) /HPF Urine Bacteria None Seen (None Seen) Hyaline Casts 0-2 (0-2) /LPF Independent Interpretation I performed an independent interpretation of an: EKG Interpretation: Normal sinus rhythm heart rate 70 beats per minute normal interval normal axis no acute ST-T changes no acute ischemia Discharge Plan Discharge Clinical Impression: Diabetes mellitus with hyperglycemia Patient Disposition: Home, Self-Care Instructions: Diabetic Hyperglycemia (ED) Additional Instructions: Drink plenty of fluids Start taking Jardiance 1 tablet daily as prescribed Follow with your PCP and chiropractic doctor Prescriptions: New Jardiance 10 mg tablet 10 mg PO QAM Qty: 30 3RF No Action tadalafil 5 mg tablet 5 mg PO DAILY PRN (Reason: sexual activity) Qty: 30 0RF (DME) FreeStyle Lite Strips Strip See Rx Instructions .Route Qty: 100 0RF Rx Instructions: As directed (DME) lancets [2-In-1 Lancet Device] 30 gauge misc See Rx Instructions .Route Qty: 100 0RF Rx Instructions: As directed alcohol swabs [Alcohol Pads] Pads, Medicated 1 pad topical TIDWMEAL Qty: 100 0RF (DME) blood-glucose meter [FreeStyle [place] Lite] Kit See Rx Instructions .ROUTE .COMPLEX Qty: 1 0RF Dose Instruction: DIRECTED Rx Instructions: DIRECTED metformin 500 mg tablet extended release 24 hr 500 mg PO BID Qty: 60 0RF cholecalciferol (vitamin D3) 50 mcg (2,000 unit) capsule 50 mcg PO DAILY 90 Days Qty: 90 3RF bisacodyl [Dulcolax (bisacodyl)] 5 mg tablet,delayed release (DR/EC) 20 mg PO ONCE 1 Days Qty: 4 0RF Rx Instructions: take 4 tabs at noon the day before your colonoscopy polyethylene glycol 3350 [Miralax] 17 gram/dose powder 238 g PO ONCE Qty: 238 0RF Rx Instructions: As directed by gastroenterology department at [facility] Referrals: Interior Design Director [Other] [facility] [place] [facility] [Provider Group] Referral Note: Type 2 diabetes Interventions: ED Discharge Assessment Last Done: 05/10/25 23:22 Discharge Date/Time: 05/10/25 23:23 Print Language: French
[2025-05-10 21:01] LABS: MANUAL DIFF FLAG NO
[2025-05-10 21:02] LABS: Hematocrit 43.6 % (42.0-52.0); Hemoglobin 15.0 g/dl (14.0-18.0); Imm Gran Abs Auto 0.01 X10*3/uL (0.00-0.03); Imm Gran Pct Auto 0.2 % (0.0-0.4); Lymphocytes Absolute Auto 1.5 X10*3/uL (1.2-4.9); Mean Corpuscular HGB Conc 34.4 g/dl (31.0-36.0); Mean Corpuscular Hemoglobin 31.2 pg (27.0-33.0); Mean Corpuscular Volume 90.6 fL (80.0-98.0); NRBC Abs Auto 0.000 X10*3/uL (0.0-0.012); NRBC Pct Auto 0.0 /100WBC (0.0-0.2); Platelet Count 155 X10*3/uL (160-400); Red Blood Count 4.81 X10*6/uL (4.60-5.80); White Blood Count 4.4 X10*3/uL (4.8-10.8)
[2025-05-10 21:03] LABS: Venous Blood Gas Refer to POC result
[2025-05-10 21:04] LABS: VBG HCO3 32 mmol/L (22-26); VBG O2 % Saturation 79.0 %
[2025-05-10 21:15] LABS: Glucose, Whole Blood 233 mg/dL (60-115)
[2025-05-10 21:16] LABS: Alanine Aminotransferase 139 U/L (0-40); Albumin Level 4.1 g/dL (3.5-5.0); Alkaline Phosphatase 91 U/L (39-117); Anion Gap 15 (12-20); Aspartate Amino Transferase 49 U/L (5-37); Blood Urea Nitrogen 17 mg/dL (9-16); Calcium 8.8 mg/dL (8.4-10.2); Carbon Dioxide 27 mmol/L (22-29); Chloride 105 mmol/L (96-108); Creatinine Clr Calc Pharmacy 94.5; Estimated Glomerular Filt Rate > 60; Lipase 20 U/L (8-78); Potassium 3.6 mmol/L (3.3-5.1); Sodium 143 mmol/L (135-145); Total Protein 7.2 g/dL (6.5-8.0)
[2025-05-10 22:10] LABS: Appearance Urine Clear; Glucose Urine UA >=1000 mg/dL (Negative); PH 6.0 (5.0-9.0); Specific Gravity - Urine >= 1.030 (1.005-1.025); UMIC TRIGGER UA YES
[2025-05-10 23:00] LABS: Reflex Lactate? Lactic Acid Added
[2025-05-10 23:22] VITALS: BP 110/65; PULSE 77; RESP 16; TEMP 36.6; O2SAT 98
[2025-05-11 05:13] LABS: Hemoglobin A1C 181.8551 umol/L; Total Hemoglobin (HGBA1C) 3878.0219 umol/L
== END 2025-05-10 23:23 | disposition home or self-care (01) ==
PROVIDERS: Physician Assistant; Emergency Provider Internal Medicine; PCP Internal Medicine
DX: E11.65 Type 2 diabetes mellitus with hyperglycemia (principal); R53.1 Weakness; R42 Dizziness and giddiness; M79.10 Myalgia, unspecified site; R11.0 Nausea; Z79.84 Long term (current) use of oral hypoglycemic drugs; F17.210 Nicotine dependence, cigarettes, uncomplicated; Z79.899 Other long term (current) drug therapy
CPT/HCPCS: 36415; 71046; 80053; 81001; 82010; 82803; 82947; 83036; 83605; 83690; 85025; 93005; 96360; 99284

== ENCOUNTER → 2025-05-10 20:19 | Outpatient (BNV) | payer OTHER, SELFPAY | PROVIDERS: Emergency Provider Internal Medicine; PCP Internal Medicine; Visit Provider Internal Medicine | DX: R53.1 Weakness (principal) | CPT/HCPCS: 93010 ==

== ENCOUNTER → 2025-05-10 20:20 | Outpatient (BNV) | payer OTHER, SELFPAY | PROVIDERS: Emergency Provider Internal Medicine; PCP Internal Medicine; Visit Provider Radiology Diagnostic Radiology | DX: R53.1 Weakness (principal) | CPT/HCPCS: 71046 ==

== ENCOUNTER 2025-05-22 13:46 | Outpatient (AMB) | payer OTHER, SELFPAY ==
--- NOTE | 2025-05-22 13:56 | MHC.OFFVIS ---
Vital Signs 05/22/25 13:57 Height 5 ft 9 in Weight 239 lb 10.279 oz BMI 35.4 BP 98/64 Blood Pressure Location Lt brachial Position Sitting Pulse 88 Pulse Source Pulse Oximeter Pulse Oximetry (%) 96 Oxygen Delivery Method Room Air Intake Visit Reasons: ED f/u hyperglycemia Intake Note: New patient present today for Type 2 Diabetes Mellitus. ED follow up. Last Diabetic eye exam: Last exam was about a year and a half ago. Needs new referral. Last Podiatry Visit: Doesn't have one Random Glucose: 114 mg/dl HgA1C: 6.4% 05/10/25 Cost Controller Required: Yes Cost Controller Language: Facility Service Associate Services: Cost Controller Present Cost Controller Name: Billie [id number] Information Interpreted: non-clinical & clinical Accompanied by: Spouse Allergies No Known Allergies Allergy (Verified 05/22/25 14:02) Medication List - Last Reconciled 05/22/25 by Adriana Ahn PA-C alcohol swabs (Alcohol Pads) 1 pad topical TIDWMEAL bisacodyl (Dulcolax (bisacodyl)) 20 mg (4 x 5 mg) PO ONCE 1 day blood sugar diagnostic (FreeStyle Lite Strips) As directed blood-glucose meter (FreeStyle [place] Lite kit) DIRECTED cholecalciferol (vitamin D3) 50 mcg PO DAILY 90 days empagliflozin (Jardiance) 10 mg PO QAM lancets (2-In-1 Lancet Device) As directed polyethylene glycol 3350 (Miralax) 238 grams PO ONCE tadalafil 5 mg PO DAILY PRN HPI HPI ED f/u hyperglycemia: Details: Patient is a 54-year-old male with a significant past medical history of hyperlipidemia, anxiety, elevated LFTs and type 2 diabetes presenting today for a diabetic consult. Phone financial associate used today Endo: Diagnosed with diabetes this year. Currently managed with metformin 500 mg twice a day, Jardiance 10 mg daily. -cannot tolerate metformin. he gets GI upset He was recently in the ER for elevated blood sugars due to being off of medication for a couple months. He checks his blood sugars daily around 130. CV: Blood pressure today in the office is 98/64. Not on any antihypertensives. Cholesterol is managed with diet [facility] Medical History Erectile dysfunction Elevated LFTs Lumbar spondylosis Impaired fasting glucose Vitamin D deficiency Pure hypercholesterolemia Obesity (BMI 30-39.9) Anxiety Renal calculi Surgical History Hx of appendectomy (~1994) Hx laparoscopic cholecystectomy (~2007) Family History Father No problems noted. Mother No problems noted. Social History Housing: Apartment Alcohol intake: current Alcohol intake frequency: holidays/special occasions only Patient Tobacco Use Status: Current everyday Tobacco user Tobacco use type: Cigarette Cigarette Packs Per Day: 0.5 Cigarettes Per Day: 6 e-Cigarette/Vaping Use: Never Used Second Hand Smoke Exposure: Yes service: No Current occupational status: employed Current occupational exposures/hazards: No Cognitive needs: No Hearing needs: No Vision needs: No Physical Exam Vital Signs: Last Vital Signs Pulse 88 05/22/25 13:57 BP 98/64 05/22/25 13:57 Pulse Ox 96 05/22/25 13:57 Oxygen Delivery Method Room Air 05/22/25 13:57 BMI result Body Mass Index 35.4 Const Orientation/consciousness: patient oriented x3 Neck Neck: Yes no lymphadenopathy Thyroid: Thyroid normal Carotids: no bruits Resp Auscultation: clear to auscultation bilaterally Cardio Rate: regular rate Rhythm: regular rhythm Heart sounds: S1 normal heart sound present and S2 normal heart sound present Peripheral pulses: dorsalis pedis present Neuro General: patient oriented x3, gait normal and no focal motor deficits Extrem Other: Monofilament sensation intact bilaterally. Vibratory sensation intact bilaterally. Skin intact. General: Yes normal to inspection Assessment & Plan Assessment & Plan (1) Newly diagnosed diabetes: Code(s): E11.9 - Type 2 diabetes mellitus without complications Category: Medical Plan: we spent 65 minutes in face to face time reviewed the pathophysiology of diabetes and difference of t1dm and t2dm. we discussed complications associated with dm including but not limited to kidney disease, blindness, infections, amputations, increased risks of mi/cvas. he wants to switch to a glp1 to help him with diet changes we will d/c jardiance now and switch to trulicity 0.75 mg weekly -he was taught how to do the injection today reviewed rule of 15s labs ordered f/u short term in 2-3 months or sooner prn (2) Elevated LFTs: Code(s): R79.89 - Other specified abnormal findings of blood chemistry Category: Medical Plan: reviewed labs with pt from ED u/s ordered (3) Pure hypercholesterolemia: Code(s): E78.00 - Pure hypercholesterolemia, unspecified Category: Medical Plan: will monitor Orders: Orders C Peptide Today E11.9 - Type 2 diabetes mellitus without complications Glutamic acid decarboxylase Ab Today E11.9 - Type 2 diabetes mellitus without complications Islet Cell Antibody Scrn/Titer Today E11.9 - Type 2 diabetes mellitus without complications Basic Metabolic Panel Fasting Today E11.9 - Type 2 diabetes mellitus without complications, R79.89 - Other specified abnormal findings of blood chemistry Microalbumin, Random (w Creat) Today E11.9 - Type 2 diabetes mellitus without complications, R79.89 - Other specified abnormal findings of blood chemistry US abdomen comp w elastography Today R79.89 - Other specified abnormal findings of blood chemistry Lipid Panel Today E78.00 - Pure hypercholesterolemia, unspecified, R79.89 - Other specified abnormal findings of blood chemistry Medications: New dulaglutide (Trulicity) 0.75 mg (0.5 mL) subcut QWEEK 2 mL 3RF Discontinued metformin ER Discontinued Reason: Doctor's Order 500 mg PO BID 60 tabs 0RF empagliflozin (Jardiance) Discontinued Reason: Doctor's Order 10 mg PO QAM 30 tabs 3RF Coding Level of Care Code New Pt Level 5 (44940) Complex EM visit Add On G2211 Diagnoses Newly diagnosed diabetes E11.9 Elevated LFTs R79.89 Pure hypercholesterolemia E78.00
[2025-05-22 13:57] VITALS: BP 98/64; PULSE 88; O2SAT 96; BMI 35.4
[2025-05-22 14:11] LABS: Glucose, Whole Blood 114 mg/dL (60-115)
== END 2025-05-22 15:06 | disposition home or self-care (01) ==
LOC: HO.ENCR 13:46
PROVIDERS: PCP Internal Medicine; Visit Provider Physician Assistant
DX: E11.9 Type 2 diabetes mellitus without complications (principal); R74.01 Elevation of levels of liver transaminase levels; E78.00 Pure hypercholesterolemia, unspecified

== ENCOUNTER → 2025-05-22 13:46 | Outpatient (BNVA) | payer OTHER, SELFPAY | PROVIDERS: PCP Internal Medicine; Visit Provider Physician Assistant | DX: E11.9 Type 2 diabetes mellitus without complications (principal); F41.9 Anxiety disorder, unspecified; R79.89 Other specified abnormal findings of blood chemistry; E78.00 Pure hypercholesterolemia, unspecified; Z79.84 Long term (current) use of oral hypoglycemic drugs | CPT/HCPCS: 82947; 99202 ==

== ENCOUNTER 2025-07-06 14:31 | Outpatient (AMB) | payer OTHER, SELFPAY ==
[2025-07-06 14:33] VITALS: BP 102/62; PULSE 77; O2SAT 98; BMI 35.5
--- NOTE | 2025-07-06 14:33 | MHC.OFFVIS ---
Vital Signs 07/06/25 14:33 Height 5 ft 9 in Weight 240 lb 11.916 oz BMI 35.5 BP 102/62 Blood Pressure Location Lt brachial Position Sitting Pulse 77 Pulse Source Pulse Oximeter Pulse Oximetry (%) 98 Oxygen Delivery Method Room Air Intake Visit Reasons: T2DM Intake Note: Patient present today for Type 2 Diabetes Mellitus Last Diabetic eye exam: Last exam was over a year ago Last Podiatry Visit: Doesn't have one Random Glucose: 159 mg/dl HgA1C: 6.4% 05/10/25 Industrial Electrical Engineer Required: Yes Industrial Electrical Engineer Language: Poker Machine Attendant Services: Industrial Electrical Engineer Present Industrial Electrical Engineer Name: Kevin [id number] Information Interpreted: non-clinical & clinical Accompanied by: Spouse Allergies No Known Allergies Allergy (Verified 07/06/25 14:39) Medication List - Last Reconciled 07/06/25 by Adriana Ahn PA-C alcohol swabs (Alcohol Pads) 1 pad topical TIDWMEAL bisacodyl (Dulcolax (bisacodyl)) 20 mg (4 x 5 mg) PO ONCE 1 day blood sugar diagnostic (FreeStyle Lite Strips) As directed blood-glucose meter (FreeStyle [place] Lite kit) DIRECTED cholecalciferol (vitamin D3) 50 mcg PO DAILY 90 days lancets (2-In-1 Lancet Device) As directed polyethylene glycol 3350 (Miralax) 238 grams PO ONCE tadalafil 5 mg PO DAILY PRN HPI HPI T2DM: Details: Patient is a 54-year-old male with a significant past medical history of hyperlipidemia, anxiety, elevated LFTs and type 2 diabetes presenting today for a diabetic consult. Phone inspector precision assembly used today Kevin Nassar: Diagnosed with diabetes this year. Most recent a1c is 6.4. Currently managed with Trulicity 0.75 mg weekly, Jardiance 10 mg daily. -cannot tolerate metformin. he gets GI upset. trulicity caused nausea at low dose He was recently in the ER for elevated blood sugars due to being off of medication for a couple months. He checks his blood sugars daily around 130. CV: Blood pressure today in the office is 102/64. Not on any antihypertensives. Cholesterol is managed with diet [facility] Medical History Erectile dysfunction Elevated LFTs Lumbar spondylosis Impaired fasting glucose Vitamin D deficiency Pure hypercholesterolemia Obesity (BMI 30-39.9) Anxiety Renal calculi Surgical History Hx of appendectomy (~1994) Hx laparoscopic cholecystectomy (~2007) Family History Father No problems noted. Mother No problems noted. Social History Housing: Apartment Alcohol intake: current Alcohol intake frequency: holidays/special occasions only Patient Tobacco Use Status: Current everyday Tobacco user Tobacco use type: Cigarette Cigarette Packs Per Day: 0.5 Cigarettes Per Day: 6 e-Cigarette/Vaping Use: Never Used Second Hand Smoke Exposure: Yes service: No Current occupational status: employed Current occupational exposures/hazards: No Cognitive needs: No Hearing needs: No Vision needs: No Physical Exam Const Orientation/consciousness: patient oriented x3 HEENT Ears: hearing grossly normal bilaterally Neck Thyroid: Thyroid normal Lymphatic: no lymphadenopathy noted Resp Auscultation: clear to auscultation bilaterally Cardio Rate: regular rate Rhythm: regular rhythm Heart sounds: S1 normal heart sound present and S2 normal heart sound present Skin General skin exam: no rashes or lesions noted Neuro General: patient oriented x3, gait normal and no focal motor deficits Assessment & Plan Assessment & Plan (1) Controlled type 2 diabetes mellitus: Code(s): E11.9 - Type 2 diabetes mellitus without complications Category: Medical Plan: start ozempic. discussed risks and benefits and adverse effects of medication labs ordered and advised to complete prior to next appointment Medications: New semaglutide (Ozempic) 0.25 mg (0.368 mL) subcut QWEEK 3 mL 3RF Discontinued dulaglutide (Trulicity) Discontinued Reason: Duplicate 0.75 mg (0.5 mL) subcut QWEEK 2 mL 3RF Coding Level of Care Code Est Pt Level 4 (22220) Complex EM visit Add On G2211 Diagnoses Controlled type 2 diabetes mellitus E11.9
[2025-07-06 14:46] LABS: Glucose, Whole Blood 159 mg/dL (60-115)
== END 2025-07-06 15:08 | disposition home or self-care (01) ==
LOC: HO.ENCR 14:32
PROVIDERS: PCP Internal Medicine; Visit Provider Physician Assistant
DX: E11.9 Type 2 diabetes mellitus without complications (principal)

== ENCOUNTER → 2025-07-06 14:31 | Outpatient (BNVA) | payer OTHER, SELFPAY | PROVIDERS: PCP Internal Medicine; Visit Provider Physician Assistant | DX: E11.9 Type 2 diabetes mellitus without complications (principal); E78.5 Hyperlipidemia, unspecified; F41.9 Anxiety disorder, unspecified; Z79.899 Other long term (current) drug therapy | CPT/HCPCS: 82947; 99212 ==

== ENCOUNTER 2025-07-15 09:44 | Outpatient (REF) | payer OTHER, SELFPAY ==
[2025-07-15 11:52] LABS: Anion Gap 10 (12-20); Blood Urea Nitrogen 21 mg/dL (9-16); Calcium 9.5 mg/dL (8.4-10.2); Carbon Dioxide 31 mmol/L (22-29); Chloride 107 mmol/L (96-108); Cholesterol 201 mg/dL (<200); Estimated Glomerular Filt Rate > 60; HDL Cholesterol 44 mg/dL (>40); Potassium 3.7 mmol/L (3.3-5.1); Sodium 144 mmol/L (135-145); Triglycerides 129 mg/dL (<150)
[2025-07-15 12:08] LABS: Microalbum/Creatinine Ratio Ur 5.2 ug/mg cr (<30)
== END 2025-07-15 09:45 | disposition home or self-care (01) ==
LOC: HO.LAB 09:44
PROVIDERS: PCP Internal Medicine; Visit Provider Physician Assistant
DX: E11.9 Type 2 diabetes mellitus without complications (principal); R79.89 Other specified abnormal findings of blood chemistry; E78.00 Pure hypercholesterolemia, unspecified
CPT/HCPCS: 36415; 80048; 80061; 82043; 82570; 84681; 86341

== ENCOUNTER 2025-08-07 10:26 | Outpatient (REF) | payer OTHER, SELFPAY ==
--- NOTE | ~2025-08-07 | US_ITS ---
EXAMINATION: US COMPLETE ABDOMEN WITH LIVER ELASTOGRAPHY CLINICAL INFORMATION: Previous CT of the abdomen and pelvis February 2023 COMPARISON: None available. TECHNIQUE: Real-time imaging of the abdominal viscera. Noninvasive ultrasound liver fibrosis assessment is performed using Mark ElastPQ point quantification shear wave elastography (pSWE) with a C5-2 MHz transducer. Multiple elastography samples are obtained. Limited exam due to body habitus. FINDINGS: PANCREAS: Not well visualized due to overlying bowel gas. ABDOMINAL AORTA: No aortic aneurysm is seen. INFERIOR VENA CAVA: Visualized portions are normal. LIVER: The liver demonstrates normal size and contour. Liver echotexture is increased. There is a 1.1 x 0.5 x 0.9 cm cyst in the right lobe the gallbladder has been. No intrahepatic biliary duct dilatation. The right lobe measures 15 cm in length. The left lobe measures 7 cm in length. Portal flow is normal/hepatopedal. Shear wave liver elastography median stiffness is 1.4 m/s (reference: normal median stiffness is 1.3 m/s or less). IQR/median stiffness to assess sampling precision is 0.6% (reference: good quality data set is IQR/median stiffness of 0.15 or less). GALLBLADDER: Cholecystectomy COMMON BILE DUCT: Normal in caliber postcholecystectomy measuring 0.8 cm in diameter. Kidneys: No hydronephrosis. No renal calculi or focal parenchymal lesions. The right kidney measures 13 cm and the left kidney measures 14.3 cm in maximum dimension. Spleen: Normal size measuring 10 cm in length. No focal lesion. FREE FLUID: None seen. US/US abdomen comp w elastography IMPRESSION: 1. Impression: Slightly echogenic liver. Small cyst in the right lobe of the liver. Limited visualization of the pancreas. 2. Liver elastography: In the absence of other known clinical signs, measurements rule out compensated advanced chronic liver disease. If there are known clinical signs, further testing may be needed for confirmation. REFERENCE: Society of Radiologists in Ultrasound Liver Stiffness Thresholds (2020): LIVER STIFFNESS THRESHOLDS: *Liver Stiffness equal or less than 1.3 m/s: High probability of being normal. *Liver Stiffness less than 1.7 m/s: In the absence of other known clinical signs, rules out compensated advanced chronic liver disease. *Liver Stiffness 1.7-2.1 m/s: Suggestive of compensated advanced chronic liver disease but need further test for confirmation. *Liver Stiffness over 2.1 m/s: Rules in compensated advanced chronic liver disease. *Liver Stiffness over 2.4 m/s: Suggestive of clinically significant portal hypertension. QUALITY OF DATA SET: *IQR/Median value equal or less than 0.15 implies a quality data set. *IQR/Median value over 0.15 implies a poor quality data set. SIGNIFICANT CHANGE FROM PRIOR EXAM: Significant change if liver stiffness measurement is 10% or greater from prior exam. OTHER CONSIDERATIONS: The stage of liver fibrosis may be overestimated in the setting of acute hepatitis, liver inflammation, elevated liver function tests, hepatic vascular congestion, obstructive cholestasis, non-fasting state, and infiltrative diseases such as amyloidosis and lymphoma. In some patients with NAFLD, the liver stiffness thresholds for compensated advanced chronic liver disease may be lower. In causes other than viral hepatitis and NAFLD, liver stiffness thresholds are not well established. Electronically signed by: Leatha Mcdonald MD 08/07/2025 12:46 PM EDT
== END 2025-08-07 10:27 | disposition home or self-care (01) ==
LOC: HO.US 10:26
PROVIDERS: PCP Internal Medicine; Visit Provider Physician Assistant
DX: R79.89 Other specified abnormal findings of blood chemistry (principal)
CPT/HCPCS: 76700; 76981

== ENCOUNTER → 2025-08-07 10:32 | Outpatient (BNV) | payer OTHER, SELFPAY | PROVIDERS: PCP Internal Medicine; Visit Provider Radiology Diagnostic Radiology | DX: K76.89 Other specified diseases of liver (principal) | CPT/HCPCS: 76700 ==

== ENCOUNTER 2025-08-28 09:44 | Outpatient (AMB) | payer OTHER, SELFPAY ==
[2025-08-28 09:46] VITALS: BP 86/76; PULSE 95; O2SAT 95; BMI 35.5
--- NOTE | 2025-08-28 09:46 | A.OFFVIS_ITS ---
Vital Signs 08/28/25 09:46 Height 5 ft 9 in Weight 240 lb 8.389 oz BMI 35.5 BP 86/76 L Blood Pressure Location Lt brachial Position Sitting Pulse 95 Pulse Source Pulse Oximeter Pulse Oximetry (%) 95 Oxygen Delivery Method Room Air Intake Visit Reasons: DM Intake Note: Patient present today for Type 2 Diabetes Mellitus Last Diabetic eye exam: Last exam was over 1 year ago and he does not have an appt scheduled yet. 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 Services: Core Feeder Present Information Interpreted: non-clinical & clinical Accompanied by: Spouse Allergies No Known Allergies Allergy (Verified 08/28/25 09:51) Medication List - Last Reconciled 08/28/25 by Adriana Ahn PA-C alcohol swabs (Alcohol Pads) 1 pad topical TIDWMEAL bisacodyl (Dulcolax (bisacodyl)) 20 mg (4 x 5 mg) PO ONCE 1 day blood sugar diagnostic (FreeStyle Lite Strips) As directed blood-glucose meter (FreeStyle [place] Lite kit) DIRECTED cholecalciferol (vitamin D3) 50 mcg PO DAILY 90 days lancets (2-In-1 Lancet Device) As directed polyethylene glycol 3350 (Miralax) 238 grams PO ONCE tadalafil 5 mg PO DAILY PRN HPI HPI DM: Details: Patient is a 54-year-old male with a significant past medical history of hyperli pidemia, anxiety, elevated LFTs and type 2 diabetes presenting today for a diabetic consult. 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 Most recent a1c is 5.4. Currently managed with Trulicity 0.75 mg weekly -he is using the Trulicity once a week or every other week because he gets nauseous. Insurance did not cover Ozempic. -cannot tolerate metformin. he gets GI upset. trulicity caused nausea at low dose. Jardiance was expensive He checks his blood sugars daily around 130. CV: Blood pressure today in the office is 86/76. Not on any antihypertensives. Cholesterol is managed with diet [facility] Medical History Erectile dysfunction Elevated LFTs Lumbar spondylosis Impaired fasting glucose Vitamin D deficiency Pure hypercholesterolemia Obesity (BMI 30-39.9) Anxiety Renal calculi Surgical History Hx of appendectomy (~1994) Hx laparoscopic cholecystectomy (~2007) Family History Father No problems noted. Mother No problems noted. Social History Housing: Apartment Alcohol intake: current Alcohol intake frequency: holidays/special occasions only Patient Tobacco Use Status: Current everyday Tobacco user Tobacco use type: Cigarette Cigarette Packs Per Day: 0.5 Cigarettes Per Day: 6 e-Cigarette/Vaping Use: Never Used Second Hand Smoke Exposure: Yes service: No Current occupational status: employed Current occupational exposures/hazards: No Cognitive needs: No Hearing needs: No Vision needs: No Physical Exam Vital Signs: Last Vital Signs Pulse 95 08/28/25 09:46 BP 86/76 L 08/28/25 09:46 Pulse Ox 95 08/28/25 09:46 Oxygen Delivery Method Room Air 08/28/25 09:46 BMI result Body Mass Index 35.5 Const Orientation/consciousness: patient oriented x3 HEENT Ears: hearing grossly normal bilaterally Neck Thyroid: Thyroid normal Lymphatic: no lymphadenopathy noted Resp Auscultation: clear to auscultation bilaterally Cardio Rate: regular rate Rhythm: regular rhythm Heart sounds: S1 normal heart sound present and S2 normal heart sound present Skin General skin exam: no rashes or lesions noted Neuro General: patient oriented x3, gait normal and no focal motor deficits Results AMB Hemoglobin A1c AMB Hemoglobin A1c 5.4 % Last Edit by PRUDENCE Willingham on 08/28/25 10:10 Results Reviewed Results Reviewed: Laboratory Last Values Glucose (Clinic) 139 mg/dL (60-115) H 08/28/25 09:54 Hgb A1c (Clinic) 5.4 % (4.0-6.0) 08/28/25 09:59 Assessment & Plan Assessment & Plan (1) Controlled type 2 diabetes mellitus: Code(s): E11.9 - Type 2 diabetes mellitus without complications Category: Medical Plan: start kera. discussed risks and benefits and adverse effects of medication labs ordered and advised to complete prior to next appointment Orders: Orders AMB Hemoglobin A1c Today E11.9 - Type 2 diabetes mellitus without complications, Z13.9 - Encounter for screening, unspecified Medications: New tirzepatide (Mounjaro) 2.5 mg (0.5 mL) subcut QWEEK 2 mL 2RF Coding Level of Care Code Est Pt Level 4 (55854) Complex EM visit Add On G2211 Diagnoses Controlled type 2 diabetes mellitus E11.9
[2025-08-28 10:00] LABS: Glucose, Whole Blood 139 mg/dL (60-115)
== END 2025-08-28 10:44 | disposition home or self-care (01) ==
LOC: HO.ENCR 09:44
PROVIDERS: PCP Internal Medicine; Visit Provider Physician Assistant
DX: Z13.9 Encounter for screening, unspecified (principal); E11.9 Type 2 diabetes mellitus without complications

== ENCOUNTER → 2025-08-28 09:44 | Outpatient (BNVA) | payer OTHER, SELFPAY | PROVIDERS: PCP Internal Medicine; Visit Provider Physician Assistant | DX: E11.9 Type 2 diabetes mellitus without complications (principal); E78.5 Hyperlipidemia, unspecified; F41.9 Anxiety disorder, unspecified; Z79.899 Other long term (current) drug therapy | CPT/HCPCS: 82947; 83036; 99212 ==

== ENCOUNTER 2025-09-09 08:15 | Outpatient (REF) | payer OTHER, SELFPAY ==
[2025-09-09 08:30] LABS: MANUAL DIFF FLAG NO
[2025-09-09 09:21] LABS: Hematocrit 46.8 % (42.0-52.0); Hemoglobin 15.9 g/dl (14.0-18.0); Imm Gran Abs Auto 0.02 X10*3/uL (0.00-0.03); Imm Gran Pct Auto 0.3 % (0.0-0.4); Lymphocytes Absolute Auto 2.1 X10*3/uL (1.2-4.9); Mean Corpuscular HGB Conc 34.0 g/dl (31.0-36.0); Mean Corpuscular Hemoglobin 31.1 pg (27.0-33.0); Mean Corpuscular Volume 91.6 fL (80.0-98.0); NRBC Abs Auto 0.000 X10*3/uL (0.0-0.012); NRBC Pct Auto 0.0 /100WBC (0.0-0.2); Platelet Count 176 X10*3/uL (160-400); Red Blood Count 5.11 X10*6/uL (4.60-5.80); White Blood Count 5.8 X10*3/uL (4.8-10.8)
[2025-09-09 10:10] LABS: Alanine Aminotransferase 134 U/L (0-40); Albumin Level 4.5 g/dL (3.5-5.0); Alkaline Phosphatase 101 U/L (39-117); Anion Gap 13 (12-20); Aspartate Amino Transferase 62 U/L (5-37); Blood Urea Nitrogen 24 mg/dL (9-16); Calcium 9.5 mg/dL (8.4-10.2); Carbon Dioxide 27 mmol/L (22-29); Chloride 106 mmol/L (96-108); Cholesterol 187 mg/dL (<200); Estimated Glomerular Filt Rate > 60; HDL Cholesterol 42 mg/dL (>40); Potassium 3.6 mmol/L (3.3-5.1); Sodium 142 mmol/L (135-145); Total Protein 8.0 g/dL (6.5-8.0); Triglycerides 148 mg/dL (<150)
== END 2025-09-09 08:16 | disposition home or self-care (01) ==
LOC: HO.LAB 08:15
PROVIDERS: PCP Internal Medicine; Visit Provider Internal Medicine
DX: R73.01 Impaired fasting glucose (principal); E78.00 Pure hypercholesterolemia, unspecified; E55.9 Vitamin D deficiency, unspecified; D64.9 Anemia, unspecified
CPT/HCPCS: 36415; 80053; 80061; 82306; 83036; 85025

== ENCOUNTER 2025-09-17 13:59 | Outpatient (REF) | payer OTHER, SELFPAY ==
[2025-09-17 15:29] LABS: Prostate Specific Antigen 3.76 ng/mL (<0.05-4.0)
== END 2025-09-17 14:00 | disposition home or self-care (01) ==
LOC: HO.LAB 13:59
PROVIDERS: PCP Internal Medicine; Visit Provider Urology
DX: Z12.5 Encounter for screening for malignant neoplasm of prostate (principal)
CPT/HCPCS: 36415; 84153

== ENCOUNTER 2025-09-18 08:24 | Outpatient (AMB) | payer OTHER, SELFPAY ==
--- NOTE | 2025-09-18 08:24 | A.OFFVIS_ITS ---
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 Associate Name: Louis [id number] Information Interpreted: non-clinical & clinical Accompanied by: Self / Same As Patient Allergies No Known Allergies Allergy (Verified 09/18/25 08:24) Medication List - Last Reconciled 09/18/25 by Hussain Cardenas MD alcohol swabs (Alcohol Pads) 1 pad topical TIDWMEAL bisacodyl (Dulcolax (bisacodyl)) 20 mg (4 x 5 mg) PO ONCE 1 day blood sugar diagnostic (FreeStyle Lite Strips) As directed blood-glucose meter (FreeStyle [place] Lite kit) DIRECTED cholecalciferol (vitamin D3) 50 mcg PO DAILY 90 days lancets (2-In-1 Lancet Device) As directed polyethylene glycol 3350 (Miralax) 238 grams PO ONCE tadalafil 5 mg PO DAILY PRN tirzepatide (Mounjaro) 2.5 mg (0.5 mL) subcut QWEEK HPI Comments Details: 09/18/25--History of Present Illness The patient is a 55-year-old individual presenting with follow-up for Benign Prostatic Hyperplasia (BPH) and prostate health screening. The patient has a history of Benign Prostatic Hyperplasia (BPH), which has been monitored over time. The current concern is an elevated Prostate-Specific Antigen (PSA) level of 3.76, which is on the high normal side. The plan is to repeat the PSA test in six months to monitor any changes. The patient also has a history of kidney stones, denies any urinary issues at this time. Results - Prostate-Specific Antigen (PSA) level: 3.76 Plan 1. Benign Prostatic Hyperplasia (Bph) 2. Elevated Prostate-Specific Antigen (Psa) - Continue monitoring symptoms and PSA levels. - Repeat PSA test in six months to assess any changes. Consider prostate bx, pending results. 3. History Of Kidney Stones - Monitor for any recurrence of symptoms. 09/10/2023--Franc is a 54-year-old male who presents today to the office for a follow-up. He is followed today for nephrolithiasis and BPH. Urinalysis within normal limits. Bladder scan PVR 16 mL. Will continue to monitor PSA. The patient is a [place] speaking male. Certified wearing apparel shaker was present during the visit. He is followed today for nephrolithiasis and BPH. He was last seen by me on 06/15/2023. Tamsulosin was prescribed. Patient states that he had developed headache while taking tamsulosin. Patient has had an episode of hematuria in the past. I have reviewed CT of the abdomen/pelvis without contrast from 03/11/2023 revealed no hydronephrosis or obstructing calculus bilaterally. PSA results reviewed ? 09/01/2023?2.98 ng/mL. Review of chart: Imaging: CT of the abdomen/pelvis without contrast from 03/11/2023 revealed no hydronephrosis or obstructing calculus bilaterally. X-ray of the KUB results from 02/26/2023 revealed No acute process seen.? Suboptimal visualization of kidneys. Radiopaque calculi are not visualized. Prior Kidney stone Tx: laser and stent about 5 years ago. [facility] Medical History Erectile dysfunction Elevated LFTs Lumbar spondylosis Impaired fasting glucose Vitamin D deficiency Pure hypercholesterolemia Obesity (BMI 30-39.9) Anxiety Renal calculi Surgical History Hx of appendectomy (~1994) Hx laparoscopic cholecystectomy (~2007) Family History Father No problems noted. Mother No problems noted. Social History Housing: Apartment Alcohol intake: current Alcohol intake frequency: holidays/special occasions only Patient Tobacco Use Status: Current everyday Tobacco user Tobacco use type: Cigarette Cigarette Packs Per Day: 0.5 Cigarettes Per Day: 6 e-Cigarette/Vaping Use: Never Used Second Hand Smoke Exposure: Yes service: No Current occupational status: employed Current occupational exposures/hazards: No Cognitive needs: No Hearing needs: No Vision needs: No Review of Systems Const All systems reviewed & are unremarkable except as noted in HPI and below Reports no additional complaints Eyes Reports no additional complaints ENT Reports no additional complaints Card Reports no additional complaints Resp Reports no additional complaints GI Reports no additional complaints Reports as per HPI Musc Reports no additional complaints Skin/Breast Reports system reviewed and no additional complaints, except as documented Neuro Reports no additional complaints Psych Reports no additional complaints Endo Reports no additional complaints Jam/Lymph Reports no additional complaints Aller/Immun Reports no additional complaints Telehealth Telehealth Telehealth Platform: Telephone Location of provider rendering services: practice address Location of patient: address on file Patient Identification confirmed using: Name, : Yes Telehealth method: voice only Patient verbally consented to treatment: Yes Patient verbally consented to billing insurance company: Yes Patient informed of any privacy concerns related to visit: Yes Minutes spent on Phone/Video with Pt.: 15 Results Reviewed Results Reviewed: Date of Service: 03/11/23 EXAMINATION: CT ABDOMEN AND PELVIS WITHOUT CONTRAST? CLINICAL INFORMATION: Abdominal pain? COMPARISON: None available. FINDINGS: LUNG BASES: The visualized lung bases are unremarkable.? LIVER, GALLBLADDER, AND BILIARY TREE: The liver is normal in size, shape, and attenuation. No focal hepatic lesion or biliary ductal dilatation is identified on this noncontrast exam. Patient is status post cholecystectomy.? PANCREAS: Unremarkable.? SPLEEN: Unremarkable.? ADRENAL GLANDS: Unremarkable.? KIDNEYS AND URETERS: Right kidney appears malrotated. No hydronephrosis or obstructing calculus bilaterally.? BLADDER: Mildly distended and grossly unremarkable.? GASTROINTESTINAL TRACT: Assessment for wall thickening in some segments of the colon is limited due to luminal collapse, though no significant pericolonic stranding is seen to strongly suggest a colitis. No evidence of bowel obstruction. No free fluid or free air is seen. ABDOMINAL WALL: Bilateral fat-containing inguinal hernias.? LYMPH NODES: Normal. VASCULAR: Unremarkable. PELVIC VISCERA: Prostate gland appears mildly prominent.? OSSEOUS STRUCTURES: Scattered endplate osteophytes are present in the spine.? IMPRESSION: No acute findings identified in the abdomen/pelvis. Date of Service: 02/26/23 EXAMINATION: XR ABDOMEN KUB CLINICAL INDICATION: Calculus of kidney. Right-sided pain? COMPARISON: None available.? FINDINGS: There is scattered stool and gas seen throughout the colon without significant distention. The small bowel loops are normal caliber. Significant surgical samantha in right upper quadrant likely from previous cholecystectomy. There are phleboliths in the pelvis. The kidneys are suboptimally visualized unenhanced radiopaque calculi cannot be excluded. No gross bony abnormality. IMPRESSION: 1.? Mild constipation. No acute process seen. 2.? Suboptimal visualization of kidneys. Radiopaque calculi are not visualized but cannot be excluded. Assessment & Plan Assessment & Plan (1) Screening PSA (prostate specific antigen): Code(s): Z12.5 - Encounter for screening for malignant neoplasm of prostate Category: Medical (2) History of kidney stones: Code(s): Z87.442 - Personal history of urinary calculi Category: Medical (3) BPH loc w urin obs/LUTS: Code(s): N40.1 - Benign prostatic hyperplasia with lower urinary tract symptoms Category: Medical (4) Elevated PSA: Code(s): R97.20 - Elevated prostate specific antigen [PSA] Category: Medical Plan Plan 1. Benign Prostatic Hyperplasia (Bph) 2. Elevated Prostate-Specific Antigen (Psa) - Continue monitoring symptoms and PSA levels. - Repeat PSA test in six months to assess any changes. Consider prostate bx, pending results. 3. History Of Kidney Stones - Monitor for any recurrence of symptoms. Patient Instructions: The patient had an opportunity to ask questions regarding treatment plan. The patient expressed understanding and agreement with the above treatment plan. The patient is aware they should contact our office by phone for worsening of their current condition or the appearance of new symptoms. Compliance is encouraged with any medications and followup testing that is ordered. It is a privilege to be allowed the opportunity to participate in the urologic care of your patient. If you have any questions or concerns regarding treatment for the above conditions please do not hesitate to contact me. The office telephone contact is [phone]. This note is constructed in part using voice recognition software. While every effort has been made to ensure accuracy basket maker errors may have been included. Yours sincerely, Hussain Cardenas MD Scribe Plan - Not visible on output: Patient was informed and verbally consented to the use of an ambient scribe for clinic note documentation during this visit. Coding Level of Care Code Tele Est Pt Level 3 (86654) Diagnoses Screening PSA (prostate specific antigen) Z12.5 History of kidney stones Z87.442 BPH loc w urin obs/LUTS N40.1 Elevated PSA R97.20
== END 2025-09-18 09:26 | disposition home or self-care (01) ==
LOC: HO.HUSH 08:24
PROVIDERS: PCP Internal Medicine; Visit Provider Urology
DX: Z12.5 Encounter for screening for malignant neoplasm of prostate (principal); Z87.442 Personal history of urinary calculi; N40.1 Benign prostatic hyperplasia with lower urinary tract symptoms; R97.20 Elevated prostate specific antigen [PSA]
CPT/HCPCS: 99213

== ENCOUNTER 2025-10-17 11:09 | Emergency (ER) | payer OTHER, SELFPAY ==
--- NOTE | 2025-10-17 11:25 | ED_ITS ---
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 No chest pain, shortness of breath, fevers, chills, abdominal pain, vomiting, diarrhea, skin rash, neck pain or neck stiffness. No recent travel. No sick contact. Related Data Previous Rx's ?Medication ?Instructions ?Recorded bisacodyl 5 mg tablet,delayed 20 mg (4 x 5 mg) PO ONCE 1 day #4 08/15/24 release (Dulcolax (bisacodyl)) tabs polyethylene glycol 3350 17 238 g PO ONCE #238 grams 1 gram/dose oral powder (Miralax) tadalafil 5 mg tablet 5 mg PO DAILY PRN sexual act ivity 10/27/24 #30 tabs alcohol swabs (Alcohol Pads) 1 pad topical TIDWMEAL #1 00 ea 12/25/24 blood sugar diagnostic (FreeStyle #100 ea 12/25/24 Lite Strips) lancets 30 gauge (2-In-1 Lancet #100 ea 12/25/24 Device) blood-glucose meter (FreeStyle #1 kit 01/05/25 Hastings Lite kit) cholecalciferol (vitamin D3) 50 50 mcg PO DAILY 90 day s #90 caps 07/08/25 mcg (2,000 unit) capsule tirzepatide 2.5 mg/0.5 mL 2.5 mg (0.5 mL) subcut QWEEK #2 mL 08/28/25 subcutaneous pen injector (Mounjaro) Allergies Allergy/AdvReac Type Severity Reaction Status Date / Time No Known Allergies Allergy Verified 10/17/25 11:29 Review of Systems Review of Systems: Yes all other systems are reviewed and are negative Constitutional: Constitutional: Reports no additional constitutional complaints, Reports body ache(s), Denies chills, Denies fever(s), Denies headache(s) and Denies weakness Eyes: Eyes: Reports no additional eye complaints and Denies change in vision ENT: Reports system reviewed and no additional complaints, except as documented, Denies dizziness, Denies headache(s), Denies nasal congestion, Denies nasal discharge, Denies neck pain and Reports sore throat Cardiovascular: Cardiovascular: Reports no additional cardiovascular complaints, Denies chest pain, Denies leg edema and Denies dyspnea Respiratory: Respiratory: Reports no additional respiratory complaints, Denies cough and Denies dyspnea Gastrointestinal: Gastrointestinal: Reports no additional gastrointestinal complaints, Denies abdominal pain, Denies diarrhea, Denies nausea and Denies vomiting Genitourinary: Genitourinary: Denies urinary incontinence Musculoskeletal: Musculoskeletal: Reports no additional musculoskeletal complaints, Denies back pain, Denies arthralgias, Denies joint swelling, Denies neck pain, Denies numbness and Denies tingling Integumentary/Breasts: Skin/Breast: Reports system reviewed and no additional complaints, except as docu and Denies rash Neurologic: Reports system reviewed and no additional complaints, except as documented, Denies Abnormal speech present, Denies dizziness, Denies headache(s), Denies numbness, Denies tingling and Denies weakness [facility] Past Medical History Attestation statement: The following information was validated with the patient. Source: old records reviewed and nursing notes reviewed Medical History Erectile dysfunction Elevated LFTs Lumbar spondylosis Impaired fasting glucose Vitamin D deficiency Pure hypercholesterolemia Obesity (BMI 30-39.9) Anxiety Renal calculi Surgical History Hx of appendectomy (~1994) Hx laparoscopic cholecystectomy (~2007) Family History Family History Father No problems noted. Mother No problems noted. Social History Social History Housing: Apartment Alcohol intake: current Alcohol intake frequency: holidays/special occasions only Patient Tobacco Use Status: Current everyday Tobacco user Tobacco use type: Cigarette Cigarette Packs Per Day: 0.5 Cigarettes Per Day: 6 e-Cigarette/Vaping Use: Never Used Second Hand Smoke Exposure: Yes Do you have a plan to hurt others: No Plan service: No Current occupational status: employed Current occupational exposures/hazards: No Cognitive needs: No Hearing needs: No Vision needs: No Physical Exam Vital Signs: Vital Signs: Last Vital Signs Temp 99.4 F 10/17/25 12:58 Pulse 106 H 10/17/25 12:58 Resp 18 10/17/25 12:58 BP 114/63 10/17/25 12:58 Pulse Ox 95 10/17/25 12:58 O2 Del Method Room Air 10/17/25 12:58 BMI result Body Mass Index 36.1 Const: General: cooperative, healthy appearing, comfortable and no acute distress Orientation/consciousness: patient oriented x3 Limitations: no limitations HEENT: Head: Yes normal to inspection Ears: hearing grossly normal bilaterally and TM's normal bilaterally General nose exam: Normal external nose present Face and sinus: Yes normal facial exam Mouth: Normal oral and palatal mucosa present Throat: Yes posterior oropharynx normal, Yes tonsils normal and Yes uvula midline Eyes: General: appearance normal, both eyes and all related structures Pupils: Equal, round and reactive pupils present Neck: Neck: Yes normal visual inspection, Yes full ROM, Yes no lymphadenopathy and Yes no meningeal signs Chest: Chest palpation & inspection: normal inspection of the chest Resp: Effort & Inspection: normal respiratory effort Auscultation: clear to auscultation bilaterally Cardio: Rate: regular rate Rhythm: regular rhythm Peripheral pulses: Peripheral pulses 2+ throughout GI: Inspection: Yes normal to inspection Palpation (GI): Soft to palpation and nontender Auscultation: normal bowel sounds Back/Spine/Pelvis: Thoracic/Lumbar Spine: thoracic and lumbar spine normal to inspection Skin: General skin exam: no rashes or lesions noted Neuro: General: patient oriented x3, no meningeal signs, no focal motor deficits and normal sensation to monofilament Cranial nerves: Yes Equal, round and reactive pupils present Cognition (Neuro): normal cognition Speech: No Abnormal speech present Gait exam (Neuro): Normal gait present Motor exam (neuro): 5/5 motor strength present throughout Extrem: General: Yes normal to inspection Course Course Course Narrative: 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 Deferred additional HPI, ROS, PE to primary provider. 55 yo male with a PMH of DM here with sore throat, chest congestion, body aches x 24 hours. Will obtain viral testing, strep testing VSS Medical Decision Making Medical Decision Making MDM Narrative: 55 yo male with a PMH of DM here with sore throat, chest congestion, body aches x 24 hours. No chest pain, shortness of breath, fevers, chills, abdominal pain, vomiting, diarrhea, skin rash, neck pain or neck stiffness. No recent travel. No sick contact. Exam is benign Vitals are stable Influenza a is positive. reviewed supportive care with the patient at home. Discussed Tamiflu, patient declined, reviewed worrisome signs and symptoms of when to return to the emergency room. Comfortable plan for discharge home. Differential Diagnosis Differential Diagnoses: The differential diagnosis associated with the presentation includes Influenza, strep pharyngitis, viral syndrome, otitis media Admission/Observation Consideration of admission/observation: Escalation of care including admission/observation considered influenza a positive with no hypoxia or tachypnea requiring supplemental oxygen and or admission Lab Data [facility] Lab Attestation statement: I reviewed the patient's lab results. Labs: Lab Results 10/17/25 Range/Units 11:48 Influenza Type A (PCR) POSITIVE A (Negative) Influenza Type B (PCR) NEGATIVE (Negative) RSV RNA Qual (PCR) NEGATIVE (Negative) SARS-CoV-2 RNA (RT-PCR) NEGATIVE (Negative) S. pyogenes GrpA BJ Negative (Negative) Independent Historian Clinical information obtained from an independent historian. History obtained from or confirmed by: Spouse Prescription Management I considered prescription management with: Antiviral Discharge Plan Discharge Clinical Impression: Influenza A Patient Disposition: Home, Self-Care Instructions: Influenza (ED) Additional Instructions: Alternate Motrin/Tylenol for any pain or fever Increase fluids, rest Prescriptions: No Action tadalafil 5 mg tablet 5 mg PO DAILY PRN (Reason: sexual activity) Qty: 30 0RF (DME) FreeStyle Lite Strips Strip See Rx Instructions .Route Qty: 100 0RF Rx Instructions: As directed (DME) lancets [2-In-1 Lancet Device] 30 gauge misc See Rx Instructions .Route Qty: 100 0RF Rx Instructions: As directed alcohol swabs [Alcohol Pads] Pads, Medicated 1 pad topical TIDWMEAL Qty: 100 0RF (DME) blood-glucose meter [FreeStyle [place] Lite] Kit See Rx Instructions .ROUTE .COMPLEX Qty: 1 0RF Dose Instruction: DIRECTED Rx Instructions: DIRECTED cholecalciferol (vitamin D3) 50 mcg (2,000 unit) capsule 50 mcg PO DAILY 90 Days Qty: 90 3RF bisacodyl [Dulcolax (bisacodyl)] 5 mg tablet,delayed release (DR/EC) 20 mg PO ONCE 1 Days Qty: 4 0RF Rx Instructions: take 4 tabs at noon the day before your colonoscopy polyethylene glycol 3350 [Miralax] 17 gram/dose powder 238 g PO ONCE Qty: 238 0RF Rx Instructions: As directed by gastroenterology department at [facility] Mounjaro 2.5 mg/0.5 mL pen injector 2.5 mg subcut QWEEK Qty: 2 2RF Referrals: Codey Raygoza MD [Primary Care Provider, Internal Medicine] Interventions: ED Discharge Assessment Last Done: 10/17/25 12:58 Print Language: Lao
[2025-10-17 11:26] VITALS: BP 114/63; PULSE 106; RESP 18; TEMP 37.4; O2SAT 95; BMI 36.1
[2025-10-17 12:14] LABS: Strep A Nucleic Acid Negative (Negative)
[2025-10-17 12:41] LABS: Resp Syncy Virus RNA Qual PCR NEGATIVE (Negative); SARS COV2 PCR INHOUSE NEGATIVE (Negative)
[2025-10-17 12:58] VITALS: BP 114/63; PULSE 106; RESP 18; TEMP 37.4; O2SAT 95
== END 2025-10-17 13:11 | disposition home or self-care (01) ==
LOC: HO.ED 13:10
PROVIDERS: Nurse Practitioner Family; Emergency Provider Emergency Medicine; PCP Internal Medicine
DX: J10.1 Influenza due to other identified influenza virus with other respiratory manifestations (principal); M79.10 Myalgia, unspecified site
CPT/HCPCS: 87637; 87651; 99282; 99283